=== PATIENT | female | born 1970 | race Caucasian/White ===

== ENCOUNTER → 2018-06-20 01:36 | Outpatient (CLI) | payer BC, SELFPAY ==
--- NOTE | 2018-06-20 13:00 | PFT_ITS ---
PULMONARY FUNCTION TEST DATE OF SERVICE June 20, 2018 REQUESTING PROVIDER Helen Lr M.D. INTERPRETATION OF STUDY The spirometry shows no evidence of obstructive airways disease, no bronchodilator response. Lung volumes show no evidence of restriction. Diffusion capacity normal. Airways resistance normal. IMPRESSION Overall normal pulmonary function study. Clinical correlation recommended. When this study was compared to previous one from 09/07/2006, the patient has a substantial decline in FVC of a total of 1170 cc. FEV1 has declined by 770 cc. Melody Kenyon M.D. JOSE/vianey T-06/21/2018
[2018-06-20] MEDS: Albuterol HFA 18 GM 200 PUFF INH IH (13:52)
[2018-06-20] MEDS: Inhaler, Assist Device 1 EACH MC (13:52)
== END ==
PROVIDERS: PCP Nurse Practitioner Family; Visit Provider Nurse Practitioner Family
DX: R06.02 Shortness of breath (principal)
CPT/HCPCS: 94060; 94150; 94726; 94729

== ENCOUNTER → 2018-07-04 15:14 | Outpatient (CLI) | payer BC, SELFPAY ==
[2018-07-04 16:42] LABS: Hemoglobin A1C 5.2 % (4.5-6.2)
[2018-07-04 17:47] LABS: Anion Gap 11.5 mmol/L (3-11); BUN 20 mg/dL (7-18); CO2 26.5 mmol/L (21.0-32.0); CREATININE 0.89 mg/dL (0.55-1.02); Calcium 8.5 mg/dL (8.5-10.1); Chloride 102 mmol/L (98-107); Cholesterol 219 mg/dL (50-200); Glucose 99 mg/dL (70-100); HDL Cholesterol 77 mg/dL (40-60); LDL CHOLESTEROL 125 mg/dL (<100); Potassium 4.1 mmol/L (3.5-5.1); Sodium 140 mmol/L (136-145); TSH 0.11 uIU/mL (0.358-3.74); Triglyceride 94 mg/dL (30-150)
[2018-07-04 18:19] LABS: FREE T4 0.88 ng/dL (0.76-1.46)
== END ==
PROVIDERS: PCP Nurse Practitioner Family; Visit Provider Nurse Practitioner Family
DX: E05.90 Thyrotoxicosis, unspecified without thyrotoxic crisis or storm (principal); E78.5 Hyperlipidemia, unspecified
CPT/HCPCS: 36415; 80048; 80061; 83721; 83036; 84439; 84443

== ENCOUNTER 2018-08-04 14:41 | Outpatient (CLI) | payer BC, SELFPAY | END 2018-08-04 15:01 | PROVIDERS: PCP Nurse Practitioner Family; Visit Provider Nurse Practitioner Family | DX: R30.0 Dysuria (principal) | CPT/HCPCS: 87077; 87086; 87186 ==

== ENCOUNTER 2018-11-10 12:40 | Outpatient (CLI) | payer BC, SELFPAY ==
--- NOTE | 2018-11-10 15:30 | DI.MAMMO_ITS ---
SYMPTOM/DIAGNOSIS: SCREENING, Z12.31 MAMMOGRAMS: Mammograms were interpreted according to the usual protocol including computer analysis with CAD system, tomosynthesis and C view imaging. There are no prior comparison exams. The breasts are composed of scattered fibroglandular densities, breast density, Category B. There is a rounded area of increased tissue density seen in the upper inner aspect of the right breast in the central tissue which may represent an island of breast tissue. Spot compression views and ultrasound are requested for further evaluation. No abnormality is seen in the left breast. There are no suspicious calcifications in either breast. CONCLUSION: Left breast, category 1, negative. Right breast, category 0. SA ASSESSMENT OF FINDINGS: Incomplete: Needs additional imaging evaluation. Category 0. Patient will receive a letter notifying them of these results. BI-RADS category B. There are scattered areas of fibroglandular density.
== END 2018-11-10 13:00 ==
PROVIDERS: PCP Nurse Practitioner Family; Visit Provider Nurse Practitioner Family
DX: R92.8 Other abnormal and inconclusive findings on diagnostic imaging of breast
CPT/HCPCS: 77063; 77067

== ENCOUNTER 2018-11-21 06:52 | Outpatient (CLI) | payer BC, SELFPAY ==
--- NOTE | 2018-11-21 14:31 | DI.COMBO_ITS ---
SYMPTOMS/DIAGNOSIS: F/U MAMMO, INCREASED SOFT TISSUE DENSITY ADDITIONAL VIEWS OF THE RIGHT BREAST AND RIGHT BREAST ULTRASOUND: Additional images are interpreted according to the usual protocol including tomosynthesis and 2D imaging. There is again seen an ovoid density in the upper inner quadrant of the right breast with somewhat ill defined borders particularly on the mediolateral oblique view. No associated microcalcifications are seen. Ultrasound was performed. At the 1:00 o'clock position of the right breast 4 cm from the nipple there is a soft tissue mass which appears to correspond to the mammographic abnormality. It has a hyperechoic rim with a hypoechoic center. No significant abnormal blood flow is appreciated. No posterior acoustic enhancement or shadowing is seen. IMPRESSION: Sonographically complex mass in the right breast corresponding to the mammographic abnormality. Biopsy should be considered for further evaluation. Alternatively a 3 month follow up mammogram and ultrasound may be considered for re-evaluation. Category 4. Breast density B. MQSA ASSESSMENT OF FINDINGS: Suspicious. Biopsy should be considered. Category 4. Patient will receive a letter notifying them of these results. BI-RADS category B. There are scattered areas of fibroglandular density.
== END 2018-11-21 07:12 ==
PROVIDERS: PCP Nurse Practitioner Family; Visit Provider Nurse Practitioner Family
DX: Z12.31 Encounter for screening mammogram for malignant neoplasm of breast (principal); R92.8 Other abnormal and inconclusive findings on diagnostic imaging of breast; N63.12 Unspecified lump in the right breast, upper inner quadrant
CPT/HCPCS: 76642; 77063; 77067

== ENCOUNTER 2019-03-20 01:04 | Outpatient (CLI) | payer BC, SELFPAY ==
--- NOTE | 2019-03-20 16:16 | DI.US_ITS ---
SYMPTOM/DIAGNOSIS: F/U THYROID NODULES, H/O BENIGN BIOPSY 2017,E04.1 THYROID ULTRASOUND: Routine examination was performed. The right lobe measures 6.3 by 2.7 by 3.1 cm. The left lobe measures 5.8 by 2.3 by 2.0 cm. The isthmus measures .3 cm. There are numerous bilateral thyroid nodules present, the largest on the right is a cystic nodule measuring 3.2 by 2 by 2.2 cm. seen inferiorly. The largest on the left is a solid avascular nodule inferiorly measuring 2 by 1.3 by 1.8 cm. IMPRESSION: Multi nodular thyroid gland.
== END 2019-03-20 01:24 ==
PROVIDERS: PCP Nurse Practitioner Family; Visit Provider Internal Medicine Endocrinology, Diabetes & Metabolism
DX: E04.2 Nontoxic multinodular goiter (principal)
CPT/HCPCS: 76536

== ENCOUNTER 2019-04-20 15:58 | Outpatient (CLI) | payer BC, SELFPAY ==
[2019-04-20 17:18] LABS: FREE T4 0.88 ng/dL (0.76-1.46); TSH 0.18 uIU/mL (0.358-3.74)
[2019-04-22 17:52] LABS: T3, Total 152 ng/dl (97-169)
[2019-04-25 15:38] LABS: Thyroid Stimulating Immunoglob <1.0 TSI index (<=1.3)
== END 2019-04-20 16:18 ==
PROVIDERS: PCP Nurse Practitioner Family; Visit Provider Internal Medicine Endocrinology, Diabetes & Metabolism
DX: E04.1 Nontoxic single thyroid nodule (principal)
CPT/HCPCS: 36415; 84439; 84443; 84445; 84480

== ENCOUNTER 2019-06-15 13:58 | Outpatient (CLI) | payer BC, SELFPAY ==
[2019-06-15 14:17] LABS: Bilirubin Small (Negative); Blood Negative (Negative); Clarity Sl Cloudy (Clear); Glucose Negative (Negative); Ketones Trace mg/dL (Negative); Leukocyte Esterase Negative (Negative); Nitrite Negative (Negative); Specific Gravity 1.015 (1.005-1.025); Urobilinogen 0.2 EU/dL (Up TO 0.2)
== END 2019-06-15 14:18 ==
PROVIDERS: PCP Nurse Practitioner Family; Visit Provider Nurse Practitioner Family
DX: R30.0 Dysuria (principal); N30.90 Cystitis, unspecified without hematuria
CPT/HCPCS: 81003; 87086

== ENCOUNTER 2019-07-24 00:44 | Outpatient (CLI) | payer BC, SELFPAY ==
[2019-07-24 17:57] LABS: TSH 0.14 uIU/mL (0.36-3.74)
[2019-07-25 18:36] LABS: T3, Total 160 ng/dl (97-169)
== END 2019-07-24 01:04 ==
PROVIDERS: PCP Nurse Practitioner Family; Visit Provider Internal Medicine Endocrinology, Diabetes & Metabolism
DX: E05.90 Thyrotoxicosis, unspecified without thyrotoxic crisis or storm (principal)
CPT/HCPCS: 36415; 84443; 84480

== ENCOUNTER 2019-10-26 00:19 | Outpatient (CLI) | payer BC, SELFPAY ==
[2019-10-26 17:11] LABS: Hemoglobin A1C 5.4 % (4.5-6.2)
[2019-10-26 17:38] LABS: ALT 28 U/L (14-59); AST 17 U/L (15-37); Albumin 3.8 g/dL (3.4-5.0); Alkaline Phosphatase 71 U/L (46-116); Anion Gap 8.2 mmol/L (3-11); BUN 14 mg/dL (7-18); Bilirubin, Total 0.4 mg/dL (0.2-1.0); CO2 29.8 mmol/L (21.0-32.0); CREATININE 0.74 mg/dL (0.55-1.02); Calculated LDL 134 mg/dL; Chloride 98 mmol/L (98-107); Cholesterol 238 mg/dL (<200); Glucose 133 mg/dL (74-106); HDL Cholesterol 84 mg/dL (40-60); Potassium 4.1 mmol/L (3.5-5.1); Sodium 136 mmol/L (136-145); TSH 0.19 uIU/mL (0.36-3.74); Total Protein 7.3 g/dL (6.4-8.2); Triglyceride 104 mg/dL (<150)
[2019-10-26 20:36] LABS: FREE T4 0.86 ng/dL (0.76-1.46)
[2019-10-28 19:27] LABS: T3, Total 156 ng/dL (97-169)
[2019-10-29 10:13] LABS: HIV-1/2 Ag & Ab Screen Negative (Negative)
== END 2019-10-26 00:39 ==
PROVIDERS: PCP Nurse Practitioner Family; Visit Provider Nurse Practitioner Family
DX: I10 Essential (primary) hypertension (principal); E78.5 Hyperlipidemia, unspecified; E05.90 Thyrotoxicosis, unspecified without thyrotoxic crisis or storm; Z11.4 Encounter for screening for human immunodeficiency virus [HIV]
CPT/HCPCS: 36415; 80053; 80061; 87389; 83036; 84439; 84443; 84480

== ENCOUNTER 2019-12-03 15:26 | Outpatient (CLI) | payer OTHER, SELFPAY ==
[2019-12-03 16:01] LABS: Abs Immature Grans 0.02 k/cumm (0.0-0.09); Absolute Basophil Count 0.02 k/cumm (0.0-0.2); Absolute Eosinophil Count 0.06 k/cumm (0.0-0.7); Absolute Lymphocyte Count 1.96 k/cumm (1.2-3.4); Absolute Monocyte Count 0.82 k/cumm (0.11-0.7); Absolute Neutrophil Count 5.79 k/cumm (1.2-6.7); Basophils % 0.2; Eosinophils % 0.7; HCT 39.6 % (36.0-46.0); HGB 13.6 g/dL (12.0-15.5); Immature Grans % 0.2 %; Lymphocytes % 22.6; Mean Corp. HGB Concentration 34.3 g/dL (32.0-36.0); Mean Corpuscular Hemoglobin 33.8 pg (27.0-33.0); Mean Corpuscular Volume 98.5 fL (80-95); Mean Platelet Volume 9.2 fL (8.0-11.0); Monocytes % 9.5; Neutrophils % 66.8; Platelet Count 301 x1000/uL (130-400); RBC 4.02 m/cumm (4.00-5.20); RBC Distribution Width 13.2 % (11.7-14.6); White Blood Cell Count 8.67 k/cumm (4.4-10.8)
[2019-12-03 16:27] LABS: ALT 22 U/L (14-59); AST 15 U/L (15-37); Albumin 3.3 g/dL (3.4-5.0); Alkaline Phosphatase 70 U/L (46-116); Anion Gap 8.3 mmol/L (3-11); BUN 13 mg/dL (7-18); Bilirubin, Total 0.4 mg/dL (0.2-1.0); CO2 29.7 mmol/L (21.0-32.0); CREATININE 0.66 mg/dL (0.55-1.02); Calcium 8.7 mg/dL (8.5-10.1); Chloride 99 mmol/L (98-107); Glucose 106 mg/dL (74-106); Potassium 4.3 mmol/L (3.5-5.1); Sodium 137 mmol/L (136-145); Total Protein 6.5 g/dL (6.4-8.2)
== END 2019-12-03 15:46 ==
PROVIDERS: PCP Nurse Practitioner Family; Visit Provider Nurse Practitioner Family
DX: R10.84 Generalized abdominal pain (principal)
CPT/HCPCS: 36415; 80053; 85025

== ENCOUNTER 2019-12-25 01:03 | Outpatient (CLI) | payer OTHER, SELFPAY ==
[2019-12-25] MEDS: Breeza Beverage 473 ML BTL PO ×2 (08:03→08:05)
[2019-12-25] MEDS: Omnipaque 350 MG/ML 50 ML BTL PO (08:04)
--- NOTE | 2019-12-25 08:33 | DI.CT_ITS ---
EXAM: CT ABDOMEN AND PELVIS W CLINICAL HISTORY: UPPER AND LOWER ABD PAIN, R10.84 TECHNIQUE: Post IV and oral contrast COMPARISON: No exams were available for comparison FINDINGS: The lung bases are clear. The heart size is normal. The liver is enlarged measuring 20 centimeters and shows mild diffuse fatty infiltration. No focal liver lesions or biliary dilatation is seen. Th e gallbladder, spleen, pancreas, kidneys and adrenals are unremarkable. The urinary bladder is nearl y empty. The uterus appears mildly enlarged. There are 2 adjacent cysts on the left ovary. There i s no bowel dilatation or inflammatory change. The appendix appears normal. There is tiny fatty cont aining umbilical hernia. The aorta is normal in diameter. There are mild degenerative changes in th e spine. IMPRESSION: Left ovarian cysts. No acute abnormality.
[2019-12-25] MEDS: Omnipaque 350 MG/ML 100 ML BTL IJ (08:41)
== END 2019-12-25 01:23 ==
PROVIDERS: PCP Nurse Practitioner Family; Visit Provider Nurse Practitioner Family
DX: R10.12 Left upper quadrant pain (principal); R10.32 Left lower quadrant pain; N83.292 Other ovarian cyst, left side; R16.0 Hepatomegaly, not elsewhere classified; K76.0 Fatty (change of) liver, not elsewhere classified; N85.2 Hypertrophy of uterus
CPT/HCPCS: 74177; J3490; Q9967

== ENCOUNTER 2020-04-08 09:22 | Outpatient (CLI) | payer OTHER, SELFPAY ==
[2020-04-09 21:03] LABS: COVID-19 RT-PCR UVMMC Result Negative (Negative)
== END 2020-04-08 09:42 ==
PROVIDERS: PCP Nurse Practitioner Family; Visit Provider Surgery
DX: Z11.59 Encounter for screening for other viral diseases (principal)
CPT/HCPCS: U0003

== ENCOUNTER 2020-04-11 07:02 | Day surgery (SDC) | payer OTHER, SELFPAY ==
--- NOTE | 2020-04-11 05:42 | HPE_ITS ---
Date of service: 04/11/20 Time of Service: 08:03 Assessment and Plan Assessment and plan (1) Change in bowel habits: Status: Acute Assessment and plan: I advised EGD and colonoscopy The procedure was described including the risks of perforation with need for surgery, bleeding, cardiorespiratory issues. The patient agrees to proceed. (2) LUQ abdominal pain: Status: Acute History of Present Illness Narrative: Has not felt well since last March. Complains of burning in her throat and tugging abdominal pain on left side that now radiates to right side. Also has some abdominal cramping and rectal pressure. Worse with drinking ETOH. Appetite is slightly decreased and feels full easily. Symptoms were off and on and are now more constant. Having 2BM/day, which is somewhat more frequent. No bloody or black stools. No FH colon cancer. CT normal. EGD 11/2017 showed mild antral gastritis. Review of Systems All systems reviewed & are unremarkable except as noted in HPI and below PFSH Social History Smoking/Tobacco Use Status: Current every day Tobacco Type: cigarettes Smoking packs per day: 1 Smoking cigarettes per day: 20.0 Years smoked: 35 Smoking pack- years: 35.00 Tobacco: How many years used: 35 Quit status: considering quitting Smoking risk assessment performed?: Yes Alcohol Intake: current Alcohol Intake frequency: 3 or more drinks per day Alcohol type: beer and wine Drug use: Never Substance use type: does not use Caregiver/Support person: No Household members: spouse and children Housing: house Do you need help understanding health information?: Rarely current occupation: [employer] Pets and animals: Yes Pets and animals: cat(s) Sexually active: Yes Do you think of yourself as: straight/heterosexual Current gender identity: female What is your relationship status?: How often do you talk on the phone with friends or family?: twice per week How often do you get together with friends or relatives?: once per week How often do you attend sabianism or orthodox services?: 1-3 times per year Do you belong to any clubs or organized social groups?: no Panel score (0-1 are the most socially isolated patients): 2 What type of physical activity do you participate in: walking Duration: 30-45 minutes/day Frequency: 3-4 times per week Freya/Adventism: Hinduism Special freya needs: No Seatbelt use: always 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 Do you feel safe at home: Yes Do you feel safe in your relationship?: Yes History History 3 Para 3 Hx # Term Pregnancies Multiple births Hx # Pregnancies Ectopic pregnancies AB induced Hx Number of Living Children 3 AB spontaneous Meds Home Medications and Allergies Home Medications Medication Instructions Recorded Confirmed Type multivitamin 1 ea PO DAILY tab 05/08/13 04/11/20 History latanoprost 1 drp OPHTHALMIC DAILY drp 08/11/16 04/11/20 History calcium phosphate-vitamin D3 1 ea PO DAILY tab.chew 09/01/17 04/11/20 History hydrochlorothiazide 25 mg tablet 25 mg PO DAILY #90 tab-cap 07/26/19 04/11/20 Rx nicotine 21 mg/24 hr daily 1 patch TD DAILY #42 each 10/18/19 04/11/20 Rx transdermal patch nicotine 7 mg/24 hr daily 1 patch TD DAILY 14 Days #14 each 10/18/19 04/11/20 Rx transdermal patch ranitidine HCl 150 mg tablet 150 mg PO QHS PRN #90 tab 12/26/19 04/11/20 Rx potassium chloride 10 mEq 10 meq PO DAILY #90 tab-cap 01/29/20 04/11/20 Rx tablet,extended release(part/cryst) albuterol sulfate 90 mcg/actuation 1 puff INHALATION Q6H PRN #18 gm 02/07/20 04/11/20 Rx aerosol inhaler sucralfate 1 gram tablet 1 gm PO Q6H PRN #90 tab 02/07/20 04/11/20 Rx omeprazole 40 mg capsule,delayed 40 mg PO BID #180 cap 02/14/20 04/11/20 Rx release bisacodyl 5 mg tablet,delayed 5 mg PO ONCE #4 tab 04/08/20 Rx release polyethylene glycol 3350 17 238 g PO ONCE #238 gm 04/08/20 04/11/20 Rx gram/dose oral powder Allergies Allergy/AdvReac Type Severity Reaction Status Date / Time bupropion AdvReac Unknown Psychosis Verified 04/11/20 07:28 Exam Const General: healthy appearing and not in acute distress Nutritional Appearance: well nourished Orientation: oriented x3 HENMT Head: normal to inspection Eyes Sclera: sclerae normal Pupils: PERRL Neck Neck: no lymphadenopathy Resp Effort & Inspection: normal respiratory effort Auscultation: clear to auscultation bilaterally and no wheezes Cardio Rate: regular rate Rhythm: regular rhythm GI Inspection: non-distended Palpation: soft, no hepatosplenomegaly, no hernias and nontender Skin General skin exam: no rashes or lesions noted Neuro General: patient alert Cognition: normal cognition Extrem General: normal to inspection Psych Affect: normal affect Attitude: cooperative COVID-19 Screening In the past 14 days, have you traveled outside of [place] or [place]?: NO
[2020-04-11 07:33] VITALS: BP 135/88; PULSE 89; RESP 16; TEMP 36.2; O2SAT 97
[2020-04-11] MEDS: Lactated Ringers 1,000 ML 80 ML IV (08:03)
--- NOTE | 2020-04-11 08:04 | W.PM.DSUDISC ---
Discharge Plan Disposition Patient Disposition: HOME Condition: Good Discharge Details Reason For Visit: GERD/CHANGE IN BOWEL HABITS/LUQ PAIN Attending Provider: Bailey Lincoln Primary Care Provider: Helen Lr Home Meds and New Rx's Prescriptions: Continued multivitamin 1 EACH tablet 1 ea PO DAILY RF: 0 latanoprost 2.5 ML drops 1 drp Ophthalmic DAILY RF: 0 calcium phosphate-vitamin D3 1 EACH tablet,chewable 1 ea PO DAILY RF: 0 hydrochlorothiazide 25 mg tablet 25 mg PO DAILY Qty: 90 RF: 4 nicotine 21 mg/24 hr patch 24 hour 1 patch TD DAILY Qty: 42 RF: 0 nicotine 7 mg/24 hr patch 24 hour 1 patch TD DAILY 14 Days Qty: 14 RF: 6 ranitidine HCl 150 mg tablet 150 mg PO QHS PRN (Reason: heartburn) Qty: 90 RF: 4 potassium chloride 10 mEq tablet,ER particles/crystals 10 meq PO DAILY Qty: 90 RF: 4 sucralfate 1 gram tablet 1 gm PO Q6H PRN (Reason: heartburn) Qty: 90 RF: 3 albuterol sulfate 90 mcg/actuation HFA aerosol inhaler 1 puff Inhalation Q6H PRN (Reason: shortness of breath or wheezing) Qty: 18 RF: 4 omeprazole 40 mg capsule,delayed release(DR/EC) 40 mg PO BID Qty: 180 RF: 4 Discontinued polyethylene glycol 3350 17 gram/dose powder 238 g PO ONCE Qty: 238 RF: 0 bisacodyl [Dulcolax (bisacodyl)] 5 mg tablet,delayed release (DR/EC) 5 mg PO ONCE Qty: 4 RF: 0 Discharge Instructions Additional Instructions: Findings: Your EGD showed minimal inflammation in the stomach (gastritis). The esophagus appeared normal. Routine biopsies were done, my office will contact you with results. Three small polyps were removed from the colon. Follow up: Plan for a colonoscopy in 5 years Please call if you develop: fevers >101.5 Nausea or Vomiting Abdominal pain that is not transient DAY SURGERY UNIT POST EGD/COLONOSCOPY INSTRUCTIONS 1. Because there will be medication in your system for the next 24 hours, you may feel a little sleepy. Your coordination will be affected. Therefore: a. Do not drive or operate dangerous equipment for 24 hours. b. Do not drink alcohol beverages for 24 hours (not even beer). c. Plan to go home and rest for the day. 2. Generally there are no restrictions on your activity after a day or so has gone by, but you may feel a bit fatigued for a few days. 3 After you arrive home you may have a light meal and return to a normal diet as you can tolerate it without feeling sick to your stomach. 4. After surgery, you may feel pain or discomfort. This should be only transient, but if it persists please contact your doctor. 5. If there are any questions regarding the findings of your procedure, please feel free to contact your doctor. 6. If you are unable to contact your doctor with a problem, contact the hospital at [phone]. 7. Continue all your regular medications unless directed otherwise. I understand the above instructions and have no questions. Signature of Patient or Responsible Adult Escort Date/Time Name of Responsible Adult Escort Signature of Nurse Date/Time Activity:: Activity as Tolerated Diet:: As Tolerated Discharge Orders Discharge Orders: Discharge Order (Routine); Ordered 04/11/20 Ordered By: Bailey Lincoln DS: Diagnosis Discharge Diagnosis (1) Change in bowel habits: Status: Acute (2) LUQ abdominal pain: Status: Acute
--- NOTE | 2020-04-11 09:00 | BOWEL_PTH ---
PATIENT: Geni Cage LOC: [facility] U#:[id number] AGE/SX: 49/F ROOM: RE04/11/[address]: Bailey Lincoln MD : 1970 BED: DIS: 04/11/2020 SPEC #: [id number] RECD: 04/11/20 12:11 STATUS: TAMIA DUNCAN #: [id number] SHARMIN: 04/11/20 09:[address]: Bailey Lincoln DEPT: Surgical Specimen RECD BY: Dali Arias ENTERED: 04/11/20 12:12 SP TYPE: Bowel OTHR DR: Helen Lr, LORNE Tissues: 1 - BIOPSY BOWEL 2 - STOMACH BIOPSY 3 - BIOPSY BOWEL 4 - BIOPSY BOWEL Procedures: GROSS AND MICRO LEVEL 4 Comments: [id number]
--- NOTE | 2020-04-11 09:17 | COLE_ITS ---
Date of service: 04/11/20 Time of Service: 09:17 Colonoscopy Report Date of procedure: 04/11/20 Pre-op diagnosis general: LUQ pain, change in bowel habits Post-op diagnosis procedure note: other (Mild gastritis, colon polyps) Procedure: EGD with biopsies Colonoscopy with cold forceps polypectomy Surgeon: Bailey Lincoln Anesthesia proc note operative: MAC Disposition: same day Indications: This patient notes LUQ discomfort. She also has some pelvic pressure and increased stool frequency. Procedure Description: The patient was placed in the left lateral position and propofol titrated to sedation. The endoscope was advanced into the esophagus un julee direct visualization. The scope was passed through the stomach and into the duodenum. There was no duodenitis or ulceration noted. Biopsies were taken from the second portion of the duodenum to evaluate for celiac disease. The gastric antrum showed minimal inflammation. The remainder of the stomach was normal including on retroflexed view of the fundus and lesser curvature. Routine biopsies were taken from the gastric antrum. The GE junction was inspected and showed no significant stricture, inflammation, masses or Barretts. The scope was slowly withdrawn with no other esophageal les ions found. Digital rectal examination revealed no abnormalities. The scope was advanced to the cecum without difficulty. The ileocecal valve and appendiceal orifice were clearly identified. The prep was good. The scope was slowly withdrawn over the course of greater than 6 minutes with no abnormalities seen in the ascending, transverse colon. In the sigmoid colon two diminiutive polyps were removed with the cold forceps and sent in the same specimen container. A hyperplastic appearing polyp was removed with the cold forceps from the rectum. Retroflexed view was normal. The patient tolerated the procedure well and was stable to recovery. Plan for routine colonoscopy in 5 years or sooner if symptoms indicate.
[2020-04-11 09:39] VITALS: BP 133/86; PULSE 70; RESP 18; TEMP 36.5; O2SAT 98
== END 2020-04-11 10:10 | disposition home or self-care (01) ==
PROVIDERS: PCP Nurse Practitioner Family; Visit Provider Surgery
PROC: (CPT 45380; principal; 2020-04-11 08:15)
DX: R19.4 Change in bowel habit (principal); R10.12 Left upper quadrant pain; D12.4 Benign neoplasm of descending colon; K62.1 Rectal polyp
CPT/HCPCS: 45380; 43239; 81025; 88305; NC; J2001

== ENCOUNTER 2020-04-23 01:32 | Outpatient (CLI) | payer OTHER, SELFPAY ==
[2020-04-28 13:22] LABS: IgA 291 mg/dL (85-499); Tissue Transglutaminase IgA <1.2 U/mL (<4.0)
== END 2020-04-23 01:52 ==
PROVIDERS: PCP Nurse Practitioner Family; Visit Provider Surgery
DX: R10.12 Left upper quadrant pain (principal); R19.4 Change in bowel habit
CPT/HCPCS: 36415; 82784; 83516

== ENCOUNTER 2020-09-26 14:13 | Outpatient (CLI) | payer OTHER, SELFPAY ==
[2020-10-01 02:34] LABS: Patient Race White; SARS-CoV-2 RNA Undetected (Undetected); SARS-CoV-2 Specimen Source Nasal
== END 2020-09-26 14:33 ==
PROVIDERS: PCP Nurse Practitioner Family; Visit Provider Nurse Practitioner Family
DX: Z11.59 Encounter for screening for other viral diseases (principal)
CPT/HCPCS: U0003

== ENCOUNTER 2020-09-29 17:25 | Emergency (ER) | payer OTHER, SELFPAY ==
[2020-09-29] VITALS (7 sets, daily range): BP systolic 135–161; BP diastolic 88–101; PULSE 75–100; RESP 14–16; TEMP 36.6–37.2; O2SAT 98–100
--- NOTE | 2020-09-29 17:30 | RT.EKG_ITS ---
APPROVED REPORT Exam: Resting ECG Patient Location: E HR:101 bpm ECG Measurements Heart Rate 101 AXIS [place] 124 P 68 QRSd 83 QRS 39 QT 347 T 59 QTc 449 Conclusion Sinus tachycardia...rate> 99 Probable left atrial enlargement...P >50mS, <-0.10mV V1 Physician: Rate 101, intervals normal, sinus tachycardia, no significant ST elevations or depression, and no evidence of STEMI, or dysrhythmia.
--- NOTE | 2020-09-29 17:49 | DI.CT_ITS ---
EXAM: CT CHEST PE ABD PELVIS W CLINICAL HISTORY: elephant on chest, sob. TECHNIQUE: Imaging Protocol: Axial CT angiography was performed with multi-slice acquisition and mu lti-planar and/or 3D reconstructions. CONTRAST MATERIAL: Intravenous: Omnipaque 350 Contrast volume:100 mL Oral: No COMPARISON: MG [facility] mammo screen call back [facility] from 11/21/[address] ABDOMEN PELVIS W from 12/25/2019 FINDINGS: CHEST: Pulmonary Arteries: No evidence of filling defect to suggest pulmonary emboli. Tracheobronchial tree: Patent where visualized. Mediastinum and Amparo: No dominant adenopathy or fluid collection. There is a 1.8 cm hypodense nodule in the superior mediastinum to the right of the trachea. It lies just posterior and inferior to the right lobe of the thyroid gland. There is a 0.7 cm hypodense nodule in the left lobe of the thyroid gland. Pulmonary parenchyma: No focal consolidation. There is a 0.7 cm pulmonary nodule in the posterior as pect of the left lower lobe. There is a 3 mm noncalcified pulmonary nodule in the left lower lobe. There is a 3 mm pulmonary nodule in the right upper lobe. No architectural distortion. Pleura: No effusion or pneumothorax. Heart: The heart is not dilated. No coronary artery calcifications are seen. No pericardial effusion. Aorta: Thoracic aorta non-dilated. No dissection. Bones: Degenerative changes. Soft tissues: Unremarkable. ABDOMEN: Liver: Normal density. No measurable mass. Portal, Superior Mesenteric, and Splenic Veins: Unremarkable. Gallbladder and Biliary Tract: No radiodense calculus or dilation. Pancreas: Normal density, no abnormal calcifications or inflammatory process. Spleen: Normal. Adrenals: No masses seen. Kidneys: Normal size, contour and axis. No radiodense stones or obstructive uropathy. No masses seen. Abdominal Aorta: Abdominal portion non-dilated. Mild atherosclerosis. Bowel: No obstruction or bowel wall thickening. Appendix is unremarkable. Peritoneal Cavity: No ascites, collection or mesenteric inflammatory response. Lymph Nodes: Within normal limits. Bones: Mild degenerative changes seen in the lumbar spine. Soft Tissues: Small fat containing umbilical hernia. PELVIS: Bladder: Symmetric distention, no gross wall thickening. Reproductive Organs: Bilateral ovarian cysts. The right cyst measures 3.4 cm. The left cyst measure s 2.7 cm. Lymph Nodes: Within normal limits. Bones: See above. IMPRESSION: 1. No evidence of a pulmonary embolism, thoracic aortic dissection or aneurysm. 2. Bilateral ovarian cysts. 3. No acute abdominal or pelvic process. 4. Probable thyroid nodules. A nonemergent thyroid ultrasound is recommended for further evaluation. 5. Pulmonary nodules. The largest measures 0.7 cm and is located in the left lower lobe. For both lo w risk and high-risk patients, consider CT scan of the chest at 3 months, PET-CT or biopsy. RADIATION DOSE DELIVERED: 1,883.22mGy.cm Total DLP 1,883.22mGy.cm Total DLP 1,883.22mGy.cm Total DLP DATA REPOSITORY: All CT scans at this facility are submitted to the National Radiology Data Registry (NRDR) Dose Index Registry (DIR) with the [employer] (A[employer]). RADIATION OPTIMIZATION: All CT scans at this facility use at least one of these dose optimization te chniques: automated exposure control; mA and/or kV adjustment per patient size (includes targeted exa ms where dose is matched to clinical indication); or iterative reconstruction.
--- NOTE | 2020-09-29 17:56 | W.ED.GENAD ---
Discharge Plan Disposition Patient Disposition: HOME Condition: Good Discharge Details Clinical Impression: Pulmonary nodule, Thyroid nodule, Chronic chest pain, Chronic shortness of breath Primary Care Provider: Helen Lr ED Provider: Ezequiel Dasilva Home Meds and New Rx's Prescriptions: Continued omeprazole 40 mg capsule,delayed release(DR/EC) 40 mg PO DAILY RF: 0 doxycycline hyclate 50 mg capsule 50 mg PO DAILY RF: 0 multivitamin 1 EACH tablet 1 ea PO DAILY RF: 0 latanoprost 2.5 ML drops 1 drp Ophthalmic DAILY RF: 0 calcium phosphate-vitamin D3 1 EACH tablet,chewable 1 ea PO DAILY RF: 0 hydrochlorothiazide 25 mg tablet 25 mg PO DAILY Qty: 90 RF: 4 nicotine 21 mg/24 hr patch 24 hour 1 patch TD DAILY Qty: 42 RF: 0 nicotine 7 mg/24 hr patch 24 hour 1 patch TD DAILY 14 Days Qty: 14 RF: 6 ranitidine HCl 150 mg tablet 150 mg PO QHS PRN (Reason: heartburn) Qty: 90 RF: 4 potassium chloride 10 mEq tablet,ER particles/crystals 10 meq PO DAILY Qty: 90 RF: 4 sucralfate 1 gram tablet 1 gm PO Q6H PRN (Reason: heartburn) Qty: 90 RF: 3 albuterol sulfate 90 mcg/actuation HFA aerosol inhaler 1 puff Inhalation Q6H PRN (Reason: shortness of breath or wheezing) Qty: 18 RF: 4 Chantix Starting Month Box 0.5 mg (11)- 1 mg (42) tablets,dose pack See Rx Instructions PO DIRECTED Qty: 53 RF: 0 Discharge Instructions Additional Instructions: At this time your work-up shows no signs of heart attack, or life-threatening etiology. However there are 2 things that are of concern. You do have evidence of a small nodule in your lung and a small nodule on your thyroid. These do not represent cancer at this stage however they need to be followed very closely. I will copy your primary care provider onto the note so they are aware. We will require repeat imaging here then in the next 3 months and further assessment of that, as well as an ultrasound of your thyroid nodule. Additionally you have gone through a tremendous amount of pain lately, and I do feel that counseling may be very helpful and beneficial to help with that you have been through. We will have them contact you. If you notice any worsening of your symptoms, or any new symptoms such as vomiting, diarrhea, fever, chills, shortness of breath, chest pain, numbness, weakness, or fainting , please return immediately to the emergency department for reevaluation. Please follow up with your primary care provider as soon as possible for reassessment and reevaluation. As always, it was a pleasure participating in your medical care today. Referrals: Helen Lr NP [Primary Care Provider] - Medical Decision Making 49-year-old female with a past medical history of COPD, still smokes greater than a pack per day, hypertension, who presented with today for the pulmonary clinic for evaluation of chest pain. Per patient she has had chest pain, occasional shortness of breath, and chest heaviness which she describes as an elephant sitting on her chest for the past 4 months. She states that it has been present since she lost her daughter in May. She has increased her smoking since then. She denies any acute changes over the last 3 months at all. She denies any pleuritic chest pain. She states that her pain and shortness of breath is not altered by activity or position. She does admit to an occasional cough, but denies hemoptysis. She denies fever or chills. She has had outpatient testing for coronavirus but denies any known exposures. We are still pending those results. She has an albuterol inhaler at home but otherwise does not use any breathing treatments. She denies any change of her symptoms with this. No other complaints at this time. No other modifying factors. Physical exam is notably unremarkable. I had an honest discussion with the patient regarding my thoughts with her current symptoms. As they are notably long occurring I feel that etiologies are unlikely life-threatening. However she certainly would benefit from further evaluation. I asked her what her main concern was that she verbalizes to me that she is truly concerned that she has cancer. This is her biggest worry. She was extremely tearful, and it seems that there is also a significant amount of grief and sadness that she still harbors from the of her daughter a few months ago. We will evaluate for concerning potential etiologies for the patient, additionally I do feel that the patient is dealing with a tremendous amount of stress from her life circumstances. I feel that she would certainly benefit from counseling also on an outpatient basis. 8pm Laboratory work-up has returned, no significant abnormalities. Troponin and proBNP are normal, no suggestion of heart strain. Lipase normal. CT scan results have returned, there is evidence of a left lobe thyroid nodule she is heterogenous, patient states that she is well aware of this and is getting it evaluated. There is also evidence of a low regularly shaped nodule in the superior segment of the left lower mandible with radiologic recommendations for PET scan and biopsy follow-up. No other abnormalities. No evidence of PE. No evidence of dissection. With normal troponin and EKG and her symptoms lasting greater than 4 months we will see no indication for repeat troponin at this time. With normal vital signs, no hypoxemia or tachypnea, and otherwise unremarkable work-up I do feel that at this time the patient is safe for discharge. I spent greater than 30 minutes with the patient having a long discussion about these findings, and importance of close follow-up and further assessment with. We will forward the note to the patient's primary care provider for further management and diagnostic evaluation of the lung nodules. Patient also gave us permission to have [facility] reach out to her for potential discussion and counseling. I also did recommend further outpatient work-up for potential pulmonary function testing, and eventual stress testing and discussion of this with her PCP. No emergent indication for stress testing at this time though, as her symptoms are clinically inconsistent with ACS or a significant cardiac etiology. I have extensively reviewed the treatment plan and discharge instructions with the patient. I have addressed all patient concerns at this time. The patient was made aware of what symptoms to monitor for that would warrant a return to the emergency department. Discussed the plan with the patient, they demonstrate verbal understanding and agreement with our assessment and plan at this time. EKG 17: 41 Rate 101, intervals normal, sinus tachycardia, no significant ST elevations or depression, and no evidence of STEMI, or dysrhythmia. FINDINGS: Pulmonary arteries: Normal. No pulmonary emboli. Aorta: Unremarkable. No aortic aneurysm. No aortic dissection. Thyroid: Left lobe of the thyroid is heterogeneous. possible 15 mm nodule in the left lobe of the thyroid. Recommend thyroid ultrasound. Lungs: Irregularly shaped nodule in the superior segment of the left lower lobe 8.7 mm. Series 5, image 24. Pleural space: Unremarkable. No pneumothorax. No pleural effusion. Heart: Unremarkable. No cardiomegaly. No pericardial effusion. Lymph nodes: Unremarkable. No enlarged lymph nodes. Bones/joints: Unremarkable. No acute fracture. Soft tissues: Unremarkable. IMPRESSION: 1. Left lobe of the thyroid is heterogeneous. possible 15 mm nodule in the left lobe of the thyroid. Recommend thyroid ultrasound. 2. Irregularly shaped nodule in the superior segment of the left lower lobe 8.7 mm. Series 5, image 24. For both low risk and high risk patients, consider CT Chest at 3 months, PET/CT, or biopsy. (Reference: Johanna) References: Johanna Abdalla et al. Guidelines for Management of Incidental Pulmonary Nodules Detected on CT Images: From the Fleischner Society 2017. Radiology. 2017;284(1):228-243 HPI General Date/Time Provider Initiated Documentation: 09/29/20 17:30. HPI Narrative: 49-year-old female with a past medical history of COPD, still smokes greater than a pack per day, hypertension, who presented with today for the pulmonary clinic for evaluation of chest pain. Per patient she has had chest pain, occasional shortness of breath, and chest heaviness which she describes as an elephant sitting on her chest for the past 4 months. She states that it has been present since she lost her daughter in May. She has increased her smoking since then. She denies any acute changes over the last 3 months at all. She denies any pleuritic chest pain. She states that her pain and shortness of breath is not altered by activity or position. She does admit to an occasional cough, but denies hemoptysis. She denies fever or chills. She has had outpatient testing for coronavirus but denies any known exposures. We are still pending those results. She has an albuterol inhaler at home but otherwise does not use any breathing treatments. She denies any change of her symptoms with this. No other complaints at this time. No other modifying factors. Related Data Home Medications Medication Instructions Recorded Confirmed multivitamin 1 ea PO DAILY tab 05/08/13 09/29/20 latanoprost 1 drp OPHTHALMIC DAILY drp 08/11/16 09/29/20 calcium phosphate-vitamin D3 1 ea PO DAILY tab.chew 09/01/17 09/29/20 hydrochlorothiazide 25 mg tablet 25 mg PO DAILY #90 tab-cap 07/26/19 09/29/20 nicotine 21 mg/24 hr daily 1 patch TD DAILY #42 each 10/18/19 09/29/20 transdermal patch nicotine 7 mg/24 hr daily 1 patch TD DAILY 14 Days #14 each 10/18/19 09/29/20 transdermal patch ranitidine HCl 150 mg tablet 150 mg PO QHS PRN #90 tab 12/26/19 09/29/20 potassium chloride 10 mEq 10 meq PO DAILY #90 tab-cap 01/29/20 09/29/20 tablet,extended release(part/cryst) sucralfate 1 gram tablet 1 gm PO Q6H PRN #90 tab 02/07/20 09/29/20 omeprazole 40 mg capsule,delayed 40 mg PO DAILY cap 05/01/20 09/29/20 release doxycycline hyclate 50 mg capsule 50 mg PO DAILY 05/23/20 09/29/20 albuterol sulfate 90 mcg/actuation 1 puff INHALATION Q6H PRN #18 gm 08/01/20 09/29/20 aerosol inhaler varenicline 0.5 mg (11)-1 mg (42) See Rx Instructions PO DIRECTED 08/08/20 09/29/20 tablets in a dose pack #53 dose pk Previous Rx's Medication Instructions Recorded hydrochlorothiazide 25 mg tablet 25 mg PO DAILY #90 tab-cap 07/26/19 nicotine 21 mg/24 hr daily 1 patch TD DAILY #42 each 10/18/19 transdermal patch nicotine 7 mg/24 hr daily 1 patch TD DAILY 14 Days #14 each 10/18/19 transdermal patch ranitidine HCl 150 mg tablet 150 mg PO QHS PRN #90 tab 12/26/19 potassium chloride 10 mEq 10 meq PO DAILY #90 tab-cap 01/29/20 tablet,extended release(part/cryst) sucralfate 1 gram tablet 1 gm PO Q6H PRN #90 tab 02/07/20 albuterol sulfate 90 mcg/actuation 1 puff INHALATION Q6H PRN #18 gm 08/01/20 aerosol inhaler varenicline 0.5 mg (11)-1 mg (42) See Rx Instructions PO DIRECTED 08/08/20 tablets in a dose pack #53 dose pk Allergies Allergy/AdvReac Type Severity Reaction Status Date / Time bupropion AdvReac Unknown Psychosis Verified 09/29/20 16:58 General Stated Complaint: Chest Pain RUBEN: 2 Review of Systems All systems reviewed & are unremarkable except as noted in HPI and below PFSH Medical History (Updated 09/29/20 @ 21:24 by Ezequiel Dasilva DO) Allergic rhinitis Atypical lobular hyperplasia (ALH) of right breast Depressive disorder Dysfunctional uterine bleeding Essential hypertension Excessive drinking of alcohol Generalized anxiety disorder GERD with esophagitis Hyperlipidemia Subclinical hyperthyroidism (~10/2017) Surgical History History of esophagogastroduodenoscopy (EGD) (04/11/20) 11/22/17, 04/11/20 S/P colonoscopy (04/11/20) Family History Mother Hyperlipidemia Type 2 diabetes mellitus Heart disease Father , at 66 of [place] Depression Stroke Myocardial infarction Type 2 diabetes mellitus Hypertension Heart disease Sister Type 2 diabetes mellitus Hypertension Hyperlipidemia Brother Hypertension Depression Brother Depression Brother Depression Brother Hypertension Son Depression Daughter Depression Daughter , at 27 suspected overdose Depression Substance abuse Maternal Grandfather Hypertension Emphysema lung Maternal Grandmother Vaginal cancer Type 2 diabetes mellitus Paternal Grandfather Heart disease Paternal Grandmother Type 2 diabetes mellitus Heart disease Social History Smoking/Tobacco Use Status: Current every day Tobacco Type: cigarettes Smoking packs per day: 1 Smoking cigarettes per day: 20.0 Years smoked: 35 Smoking pack-years: 35.00 Tobacco: How many years used: 35 Quit status: considering quitting Smoking risk assessment performed?: Yes Alcohol Intake: current Alcohol Intake frequency: 3 or more drinks per day Alcohol type: beer and wine Drug use: Never Substance use type: does not use Caregiver/Support person: No Household members: spouse and children Housing: house Do you need help understanding health information?: Rarely 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 Pets and animals: Yes Pets and animals: cat(s) Sexually active: Yes Do you think of yourself as: straight/heterosexual Current gender identity: female What is your relationship status?: How often do you talk on the phone with friends or family?: twice per week How often do you get together with friends or relatives?: once per week How often do you attend restorationism or mormonism services?: 1-3 times per year Do you belong to any clubs or organized social groups?: no Panel score (0-1 are the most socially isolated patients): 2 What type of physical activity do you participate in: walking Duration: 30-45 minutes/day Frequency: 3-4 times per week Freya/Latter Day: Sikh Special freya needs: No Seatbelt use: always Drive intox or ride w/intox milk delivery driver: No Do you feel safe at home: Yes Do you feel safe in your relationship?: Yes History History 3 Para 3 Hx # Term Pregnancies Multiple births Hx # Pregnancies Ectopic pregnancies AB induced Hx Number of Living Children 3 AB spontaneous Exam Narrative Exam Narrative: 1.Const: Well-nourished, Well-developed, appearing stated age 2.Eyes: PERRL, no conjunctival injection, and symmetrical lids. 3.ENT: Atraumatic external nose and ears. Moist MM. Neck: Symmetric, trachea midline, No thyromegaly. 4.CVS: +S1/S2, No murmurs or gallops. Peripheral pulses 2+ and equal in all extremities. Brisk capillary refill in all extremities. 5.RESP: Unlabored respiratory effort. Clear to auscultation bilaterally. No wheezes rales or rhonchi 6.GI: Soft, Nontender/Nondistended, No hepatosplenomegaly. No guarding or rebound. 7.MSK: Normocephalic/Atraumatic, Extremities w/o deformity or ttp No cyanosis or clubbing, Normal movement of all extremities no calf tenderness or edema. 8.Skin: Warm, Dry. No rashes or lesions. 9.Neuro: medical clinic manager II-XII grossly intact. Sensation grossly intact, no focal neurologic deficits. 10.Psych: (AAO) x3. Appropriate mood and affect Course Vital Signs Vital signs: Vital Signs Temperature 36.6 C 09/29/20 17:37 Pulse 94 H 09/29/20 17:37 Blood Pressure 161/88 H 09/29/20 17:37 Pulse Oximetry 100 09/29/20 17:37 Temperature 36.6 C 09/29/20 17:37 Temperature Source Temporal Artery Scan 09/29/20 17:37 Pulse 94 H 09/29/20 17:37 Blood Pressure 161/88 H 09/29/20 17:37 Blood Pressure Position Sitting 09/29/20 17:37 Pulse Oximetry 100 09/29/20 17:37 Oxygen Delivery Method Room Air 09/29/20 17:37 Oxygen Flow Rate 0 09/29/20 17:37 Pain Level 6 09/29/20 17:37
[2020-09-29 17:59] LABS: Abs Immature Grans 0.02 10^3/uL (0.0-0.06); Absolute Basophil Count 0.02 10^3/uL (0.0-0.2); Absolute Eosinophil Count 0.04 10^3/uL (0.0-0.7); Absolute Lymphocyte Count 2.02 10^3/uL (1.2-3.4); Absolute Monocyte Count 0.71 10^3/uL (0.1-0.8); Absolute Neutrophil Count 5.24 10^3/uL (1.2-6.7); Basophils % 0.2; Eosinophils % 0.5; HCT 42.9 % (36.0-46.0); HGB 14.9 g/dL (11.2-15.7); Immature Grans % 0.2; Lymphocytes % 25.1; MCH 35.3 pg (27.0-33.0); MCHC 34.7 % (32.0-36.0); MCV 101.7 fL (80-95); Monocytes % 8.8; Neutrophils % 65.2; Nucleated RBC 0 %; Platelet Count 294 10^3/uL (130-400); RBC 4.22 10^6/uL (3.93-5.22); RDW 13.1 % (11.7-14.6); RDW-SD 49.9 fL; WBC 8.05 10^3/uL (4.4-10.8)
[2020-09-29 18:10] LABS: Prothrombin Time 10.3 sec (9.3-11.0)
[2020-09-29 18:17] LABS: PTT Activated 24.6 sec (21.0-27.5)
[2020-09-29] MEDS: Omnipaque 350 MG/ML 100 ML BTL IJ (18:19)
[2020-09-29] MEDS: Normal Saline Flush 10 ML SYR IVP (18:19)
[2020-09-29 18:20] LABS: ALT 27 U/L (14-59); AST 21 U/L (15-37); Albumin 3.9 g/dL (3.4-5.0); Alkaline Phosphatase 78 U/L (46-116); Anion Gap 8.9 mmol/L (3-11); BUN 17 mg/dL (7-18); Bilirubin, Total 0.3 mg/dL (0.2-1.0); CO2 28.1 mmol/L (21.0-32.0); CREATININE 0.76 mg/dL (0.55-1.02); Calcium 8.9 mg/dL (8.5-10.1); Chloride 99 mmol/L (98-107); Glucose 109 mg/dL (74-106); Potassium 3.4 mmol/L (3.5-5.1); Sodium 136 mmol/L (136-145); Total Protein 7.8 g/dL (6.4-8.2)
[2020-09-29 18:21] LABS: Troponin I < 0.05 ng/mL (<0.06)
[2020-09-29 18:40] LABS: Lipase 120 U/L (73-393); NT-proBNP 54 pg/mL (<300)
--- NOTE | 2020-09-29 19:08 | DI.VRAD_ITS ---
PROCEDURE INFORMATION: Exam: CT Angiography Chest With Contrast Exam date and time: 09/29/2020 6:22 PM Age: 49 years old Clinical indication: Other: PT concerned they have cancer; Shortness of breath TECHNIQUE: Imaging protocol: Computed tomographic angiography of the chest with intravenous contrast. 3D rendering (Not supervised by radiologist): MIP and/or 3D reconstructed images were created by the technologist. COMPARISON: CT ABDOMEN PELVIS W 12/25/2019 8:33 AM FINDINGS: Pulmonary arteries: Normal. No pulmonary emboli. Aorta: Unremarkable. No aortic aneurysm. No aortic dissection. Thyroid: Left lobe of the thyroid is heterogeneous. possible 15 mm nodule in the left lobe of the thyroid. Recommend thyroid ultrasound. Lungs: Irregularly shaped nodule in the superior segment of the left lower lobe 8.7 mm. Series 5, image 24. Pleural space: Unremarkable. No pneumothorax. No pleural effusion. Heart: Unremarkable. No cardiomegaly. No pericardial effusion. Lymph nodes: Unremarkable. No enlarged lymph nodes. Bones/joints: Unremarkable. No acute fracture. Soft tissues: Unremarkable. IMPRESSION: 1. Left lobe of the thyroid is heterogeneous. possible 15 mm nodule in the left lobe of the thyroid. Recommend thyroid ultrasound. 2. Irregularly shaped nodule in the superior segment of the left lower lobe 8.7 mm. Series 5, image 24. For both low risk and high risk patients, consider CT Chest at 3 months, PET/CT, or biopsy. (Reference: Johanna) References: Johanna Abdalla et al. Guidelines for Management of Incidental Pulmonary Nodules Detected on CT Images: From the Fleischner Society 2017. Radiology. 2017;284(1):228-243. PROCEDURE INFORMATION: Exam: CT Abdomen And Pelvis With Contrast Exam date and time: 09/29/2020 6:22 PM Age: 49 years old Clinical indication: Other: PT concerned they have cancer; Shortness of breath TECHNIQUE: Imaging protocol: Computed tomography of the abdomen and pelvis with intravenous contrast. COMPARISON: CT ABDOMEN PELVIS W 12/25/2019 8:33 AM FINDINGS: Liver: Normal. No mass. Gallbladder and bile ducts: Normal. No calcified stones. No ductal dilation. Pancreas: Normal. No ductal dilation. Spleen: Normal. No splenomegaly. Adrenal glands: Normal. No mass. Kidneys and ureters: No renal calculus. No ureteral calculus.. Stomach and bowel: Unremarkable. No obstruction. No mucosal thickening. Appendix: Normal appendix Intraperitoneal space: Unremarkable. No free air. No significant fluid collection. Vasculature: Unremarkable. No abdominal aortic aneurysm. Lymph nodes: Unremarkable. No enlarged lymph nodes. Urinary bladder: Unremarkable as visualized. Reproductive: Right ovarian cyst measures 3.3 cm. Left ovarian cyst measures 2.7 cm. Bones/joints: Unremarkable. No acute fracture. Soft tissues: Umbilical hernia contains fat IMPRESSION: 1. Right ovarian cyst measures 3.3 cm. Left ovarian cyst measures 2.7 cm. 2. No renal calculus. No ureteral calculus.. Dictated and Authenticated by: Walter Williamson MD. Ordering:TYLER Nieves MD
--- NOTE | 2020-10-07 09:27 | PDOC.ERCMPRO ---
- If Service Date Differs Date of service: 10/07/20 Time of Service: 09:27 Care Management Progress Note At the request of ED provider, CM coordinates a referral to [facility] for therapy.
== END 2020-09-29 19:50 | disposition home or self-care (01) ==
PROVIDERS: Emergency Provider Student in an Organized Health Care Education/Training Program; PCP Nurse Practitioner Family
DX: R06.02 Shortness of breath (principal); R07.9 Chest pain, unspecified; G89.29 Other chronic pain; R91.1 Solitary pulmonary nodule; Z63.4 Disappearance and death of family member; I10 Essential (primary) hypertension; J44.9 Chronic obstructive pulmonary disease, unspecified; F17.210 Nicotine dependence, cigarettes, uncomplicated
CPT/HCPCS: 36415; 71275; 74177; 80053; 83690; 93005; 99285; 83880; 84484; 85025; 85610; 85730; 93010; J3490

== ENCOUNTER 2020-11-12 16:39 | Outpatient (REF) | payer OTHER, SELFPAY ==
[2020-11-13 04:19] LABS: COVID-19 RT-PCR UVMMC Result Negative (Negative)
== END 2020-11-12 16:59 ==
LOC: LBN 16:39
PROVIDERS: PCP Nurse Practitioner Family; Visit Provider Nurse Practitioner Family
DX: Z11.59 Encounter for screening for other viral diseases (principal)
CPT/HCPCS: U0003

== ENCOUNTER 2020-12-12 01:41 | Outpatient (CLI) | payer OTHER, SELFPAY ==
[2020-12-12 15:09] LABS: Calculated LDL 131 mg/dL (<100); Cholesterol 239 mg/dL (<200); HDL Cholesterol 93 mg/dL (40-60); Triglyceride 75 mg/dL (<150)
[2020-12-12 19:23] LABS: FREE T4 0.81 ng/dL (0.76-1.46); TSH 0.14 uIU/mL (0.36-3.74)
[2020-12-14 17:29] LABS: T3, Total 159 ng/dL (97-169)
[2020-12-17 14:23] LABS: Thyroid Stimulating Immunoglob <1.0 TSI index (<=1.3)
== END 2020-12-12 02:01 ==
PROVIDERS: PCP Nurse Practitioner Family; Visit Provider Nurse Practitioner Family
DX: E78.5 Hyperlipidemia, unspecified (principal); E05.90 Thyrotoxicosis, unspecified without thyrotoxic crisis or storm
CPT/HCPCS: 36415; 80061; 84439; 84443; 84445; 84480

== ENCOUNTER 2021-01-19 01:29 | Outpatient (CLI) | payer OTHER, SELFPAY ==
--- NOTE | 2021-01-19 07:00 | DI.CT_ITS ---
EXAM: CT CHEST WO CLINICAL HISTORY: Reassess LLL nodule,R91.8 TECHNIQUE: Imaging Protocol: Axial computed tomography images with coronal and sagittal reformatted images were created and reviewed CONTRAST MATERIAL: Intravenous: Omnipaque 350 Contrast volume:structured data in ml. COMPARISON: CT CT CHEST PE ABD PELVIS W from 09/29/[address] CHEST PE ABD PELVIS W from 09/29/2020 FINDINGS: Thyroid: Stable bilateral nodules, right greater than left. Tracheobronchial tree: Patent where visualized. Mediastinum and Amparo: No dominant adenopathy or fluid collection. Pulmonary parenchyma: No consolidation. Interval decrease in size nodule in the superior segment of left lower lobe, now measuring 5 x 4 x 6 cm. A few other scattered tiny nodules are seen. Pleura: No effusion or pneumothorax. Heart: The heart is not dilated. No coronary artery calcifications are seen. Aorta: Thoracic aorta non-dilated. Upper abdomen: Unremarkable. Lymph nodes: Within normal limits. Bones: Mild degenerative changes. Soft tissues: Unremarkable. IMPRESSION: Interval decrease in size left lower lobe nodule, consistent with benign findings. No new abnormalit ies. RADIATION DOSE DELIVERED: 764.88mGy.cm Total DLP DATA REPOSITORY: All CT scans at this facility are submitted to the National Radiology Data Registry (NRDR) Dose Index Registry (DIR) with the [employer] (ACR). RADIATION OPTIMIZATION: All CT scans at this facility use at least one of these dose optimization te chniques: automated exposure control; mA and/or kV adjustment per patient size (includes targeted exa ms where dose is matched to clinical indication); or iterative reconstruction.
== END 2021-01-19 01:49 ==
PROVIDERS: PCP Nurse Practitioner Family; Visit Provider Nurse Practitioner Family
DX: R91.1 Solitary pulmonary nodule (principal)
CPT/HCPCS: 71250

== ENCOUNTER 2021-11-23 15:08 | Outpatient (REF) | payer OTHER, SELFPAY ==
--- NOTE | 2021-11-23 14:30 | PAPFT_PTH ---
PATIENT: Geni Cage LOC: [facility] U#:[id number] AGE/SX: 50/F ROOM: RE11/23/[address]: [place] : 1970 BED: DIS: 11/23/2021 SPEC #: [id number] RECD: 11/23/21 18:14 STATUS: TAMIA REMaggie #: [id number] SHARMIN: 11/23/21 14:[address]: Helen Lr DEPT: PENDING SALE TO [facility] Cytology RECD BY: Dali Arias Tissues: 1 - CX/ENDOCX FOR PAP SMEARS Procedures: PAP THIN PREP/[facility] Screening HPV DNA PROBE Comments: [id number]
== END 2021-11-23 15:09 | disposition home or self-care (01) ==
LOC: LBN 15:08
PROVIDERS: PCP Nurse Practitioner Family; Visit Provider Nurse Practitioner Family
DX: Z12.4 Encounter for screening for malignant neoplasm of cervix (principal); Z11.51 Encounter for screening for human papillomavirus (HPV); Z01.419 Encounter for gynecological examination (general) (routine) without abnormal findings
CPT/HCPCS: 88142; 87624

== ENCOUNTER 2021-11-24 02:15 | Outpatient (CLI) | payer OTHER, SELFPAY | END 2021-11-24 02:16 | disposition home or self-care (01) | LOC: LBO 02:15 | PROVIDERS: PCP Nurse Practitioner Family; Visit Provider Nurse Practitioner Family ==

== ENCOUNTER 2021-11-27 04:11 | Outpatient (CLI) | payer OTHER, SELFPAY ==
[2021-11-27 12:10] LABS: Anion Gap 4.9 mmol/L (3-11); BUN 18 mg/dL (7-18); CO2 31.1 mmol/L (21.0-32.0); CREATININE 0.7 mg/dL (0.55-1.02); Calcium 8.8 mg/dL (8.5-10.1); Calculated LDL 142 mg/dL (<100); Chloride 100 mmol/L (98-107); Cholesterol 256 mg/dL (<200); Glucose 96 mg/dL (74-106); HDL Cholesterol 101 mg/dL (40-60); Potassium 4.3 mmol/L (3.5-5.1); Sodium 136 mmol/L (136-145); TSH 0.37 uIU/mL (0.36-3.74); Triglyceride 66 mg/dL (<150)
== END 2021-11-27 04:12 | disposition home or self-care (01) ==
LOC: LBO 04:11
PROVIDERS: PCP Nurse Practitioner Family; Visit Provider Nurse Practitioner Family
DX: I10 Essential (primary) hypertension (principal); E05.90 Thyrotoxicosis, unspecified without thyrotoxic crisis or storm; E78.5 Hyperlipidemia, unspecified
CPT/HCPCS: 36415; 80048; 80061; 84439; 84443

== ENCOUNTER 2022-05-31 02:11 | Outpatient (CLI) | payer OTHER, SELFPAY ==
--- OUTSIDE RECORDS SUMMARY | 2022-05-31 02:15 | XMS_ITS | Encounter Summary ---
:1970 Author Organization [facility] Address [address] [place] [address] Care Team Providers Name Role Phone Helen Lr MAGO Primary Care Provider Encounter Details Date Type Department Care Team Description 10/27/2020 Hospital Encounter Mammography/DXA at Helen Lr , Encounter for [facility] screening mammogram [address] [id number] [phone] Social History Tobacco Use Types Packs/Day Years Used Date Current Every Day Smoker Cigarettes 0.5 Smokeless Tobacco: Never Used Sex Assigned at Date Recorded Not on file documented as of this encounter Medications at Time of Discharge Medication Sig Dispensed Refills Start Date End Date omeprazole (PriLOSEC) 40 mg Take 40 mg by 0 Capsule, Delayed Release(E.C.) mouth daily. fluticasone (FLONASE ALLERGY daily. 0 RELIEF) 50 mcg/actuation [facility], Suspension doxycycline (VIBRA-TABS) 100 100 mg daily. 0 03/12/2017 mg Tablet PROAIR HFA 90 mcg/actuation Inhale 2 puffs 0 06/15 HFA Aerosol Inhaler into the lungs every 6 hours as needed. hydroCHLOROthiazide Take 25 mg by 0 10/25/2017 (HYDRODIURIL) 25 mg Tablet mouth daily. latanoprost (XALATAN) 0.005 % Place 1 drop into 0 10/07/2017 Drops both eyes daily. pantoprazole (PROTONIX) 20 mg Take 20 mg by 0 Tablet, Delayed Release (E.C.) mouth daily. potassium chloride SA Take 10 mEq by 0 11/01/2017 (K-DUR;KLOR-CON) 10 mEq Tab mouth daily. Sust.Rel. Particle/Crystal documented as of this encounter Plan of Treatment Upcoming Encounters Date Type Specialty Care Team Description 06/21/2022 Office Visit Endocrinology Asa Castañeda MD [facility] [place], [place] [address] (Wo rk) documented as of this encounter Procedures Procedure Name Priority Date/Time Associated Diagnosis Comme nts MAMMO SCREENING CAD Routine 10/27/2020 12:52 PM Encounter for Results for this AND DARYL BILATERAL EST screening mammogram pr ocedure are in for breast cancer the result s section. documented in this encounter Results Mammo Screening Cad and Daryl Bilateral (10/27/2020 12:52 PM EST) Anatomical Region Laterality Modality Breast Bilateral Mammography Specimen (Source) Anatomical Location Collection Method / Collectio n Time Received Time / Laterality Volume Narrative 10/28/2020 10:11 AM EST BILATERAL MAMMOGRAPHY REASON FOR EXAM: f/u 10.23.[place] [facility]CH[place]: CC and MLO views were obtaine d of each breast using standard 2-D mammography as well as 3-D tomosynthesis . Computer aided detection was used. Comparison: This is compared with prior images. FINDINGS: There are scattered areas of f ibroglandular density. There are no suspicious microcalcifications, masses, or areas of distortion. The pattern is stable. Right breast biopsy marker in pl pen[place], no interval change of surrounding parenchyma. No suspicious findings. CONCLUSION: No mammographic evidence of malignancy. RECOMMENDATION: Routine screening. A result letter has been sent to this pa sandra by [facility]. BIRADS CATEGORY 2: Benign findings. * ??Regular screening mammograms startin g between age 40 and 50 reduces the risk of from breast cancer. * ??All screening tests have both risks and benefits. These risks and benefits should be assessed for each individual p atient through discussion with their provider to determine their preferred east cancer screening schedule. * ??Women should report any breast panchal es to a health care provider right away. * ??Some women, because of their family history, a genetic tendency, or other factors, should be screened with annual breast MRI as well as with mammograms. (The number of women who fall into this category is very small). Patients and health care providers should discuss eac h patients history to decide if earlier screening and/or breast MRI are appropri ate. * ??Screening should continue as long as a woman is in good health and is expected to live 10 years or longer. * ??Screening mammography may not detect 10-15% of breast cancers. Thank you for letting us participate in the care of this patient. For questions regarding this report, please contact e number below. ? Electronically signed by: Eddie Cárdenas MD, [facility] ([phone]), at 10/28/2020 10:11 AM Helen Lr APRN IMG MAMMO ORDERABLES documented in this encounter Visit Diagnoses Diagnosis Encounter for screening mammogram for br east cancer documented in this encounter Care Teams Heel Coverer Machine Operator Relationship Specialty Start Date End Date Helen Lr APRN PCP - General Family Medicine 12/11/[address] [place] [address] documented as of this encounter
--- OUTSIDE RECORDS SUMMARY | 2022-05-31 02:15 | XMS_ITS | Encounter Summary ---
:1970 [place] [address] Care Team Providers Name Role Phone Helen Lr MA[employer]GER [employer] Primary Care Provider Encounter Details Date Type Department Care Team Description 12/04/2018 Ancillary Radiology Library Helen Lr Breas t mass, right Procedure at [facility] [employer] [address] [id number] [phone] Social History Tobacco Use Types Packs/Day Years Used Date Current Every Day Smoker Cigarettes 1 Smokeless Tobacco: Never Used Sex Assigned at Date Recorded Not on file documented as of this encounter Plan of Treatment Upcoming Encounters Date Type Specialty Care Team Description 06/21/2022 Office Visit Endocrinology Asa Castañeda MD [facility] [address] [place] [address] (Wo rk) documented as of this encounter Procedures Procedure Name Priority Date/Time Associated Diagnosis Comme nts REQUEST FOR 2ND Routine 12/04/2018 8:48 AM Breast mass, right Results for this READ MAMMO EST procedure are i n the results section. documented in this encounter Results Request for 2nd read Mammo (12/04/2018 8:48 AM EST) Anatomical Region Laterality Modality SO Specimen (Source) Anatomical Location Collection Method / Collectio n Time Received Time / Laterality Volume Impressions 12/04/2018 11:42 AM EST The Right breast demonstrates a 1.8 cm ill-defined mass felt to correspond to a sonographically complex mass in the upper inner quadrant, at 1:00, 4 cm from the nipple. RECOMMENDATION: Repeat Right breast ultr asound of the upper inner quadrant for further evaluation of a 1.8 cm ill-defin ed mammographic mass in the upper inner quadrant at 1:00, 4 cm from the nipple. Additional right mammographic images may be performed, at the discretion of the r adiologist. Right -BI-RADS Category 0: Incomplete-Ne ed Additional Imaging Evaluation and/or Prior Mammograms for Comparison Left -BI-RADS Category 1: Negative. Please note: Breast ultrasound is operat or dependent. Complete assessment of the breast tissue is not possible through st atic images or cine loops. Because breast ultrasound is a dynamic process t he interpretive value of outside images is limited. ?? Please note: The interpretation of the [facility] Breast Imaging Radiologist subspecialist may differ fro m the original radiologists interpretation. This is usually not due to a deficiency of the original interpreting radiologist, rather due to the greater skill level afforded by sub-specialization in the field and/or r easonable variations in interpretations. If you have a concern regarding the D- interpretation you may contact the [facility] Breast Assignment Clerk Office at . Thank you for letting us participate in the care of this patient. For questions regarding this report, please contact e number below. ? Narrative 12/04/2018 11:42 AM EST INTERPRETATION OF OUTSIDE BREAST IMAGING I have been asked to consult on this pat ient by Dr. Lr because he/she believes a review of this study may jackman ge or alter the care of this patient. [place] DATES: 11/10/2018, 11/21/2018 TYPE OF EXAM: Bilateral mammogram 2017, diagnostic right mammogram, and right breast ultrasound on 11/21/2018. CLINICAL HISTORY: RIGHT BREAST COMPLEX M ASS, CAT 4; ?BX; What Modality is the exam? Mammography; Body Part (please add comments as necessary): RIGHT BREAST; I believe a reinterpretation of this exam may alter care of Patient. Yes. ?? COMPARISONS: None; baseline exam. TECHNIQUE: 2-D direct digital capture an d 3-D amandeep synthesis mammograms of the right and left breast were performed FINDINGS: The breasts are composed of scattered gl andular density. RIGHT Right Mammogram: The right breast demons trates a 1.8 cm round indistinct, mass in the upper inner quadrant at 1:00, 4 c m from the nipple. Right Ultrasound: By report, targeted ul trasound of the right upper outer quadrant at 1:00, 4 cm from the nipple d emonstrates a complex mass characterized by a hypoechoic center with hyperechoic rim; no associated vascularity or shadowing seen; this sonographic finding was felt to correspond to the mammographic abnormality. LEFT Left Mammogram: There are no suspicious microcalcifications, masses, or areas of distortion. Procedure Note Melinda Fry MD - 9 INTERPRETATION OF OUTSIDE BREAST IMAGING I have been asked to consult on this pat ient by Dr. Lr because he/she believes a review of this study may jackman ge or alter the care of this patient. STUDIES FROM: [place], [place]. DATES: 11/10/2018, 11/21/2018 TYPE OF EXAM: Bilateral mammogram 2017, diagnostic right mammogram, and right breast ultrasound on 11/21/2018. CLINICAL HISTORY: RIGHT BREAST COMPLEX M ASS, CAT 4; ?BX; What Modality is the exam? Mammography; Body Part (please add comments as necessary): RIGHT BREAST; I believe a reinterpretation of this exam may alter care of Patient. Yes. COMPARISONS: None; baseline exam. TECHNIQUE: 2-D direct digital capture an d 3-D amandeep synthesis mammograms of the right and left breast were performed FINDINGS: The breasts are composed of scattered gl andular density. RIGHT Right Mammogram: The right breast demons trates a 1.8 cm round indistinct, mass in the upper inner quadrant at 1:00, 4 c m from the nipple. Right Ultrasound: By report, targeted ul trasound of the right upper outer quadrant at 1:00, 4 cm from the nipple d emonstrates a complex mass characterized by a hypoechoic center with hyperechoic rim; no associated vascularity or shadowing seen; this sonographic finding was felt to correspond to the mammographic abnormality. LEFT Left Mammogram: There are no suspicious microcalcifications, masses, or areas of distortion. IMPRESSION The Right breast demonstrates a 1.8 cm i ll-defined mass felt to correspond to a sonographically complex mass in the upper inner quadrant, at 1:00, 4 cm from the nipple. RECOMMENDATION: Repeat Right breast ultr asound of the upper inner quadrant for further evaluation of a 1.8 cm ill-defin ed mammographic mass in the upper inner quadrant at 1:00, 4 cm from the nipple. Additional right mammographic images may be performed, at the discretion of the r adiologist. Right -BI-RADS Category 0: Incomplete-Ne ed Additional Imaging Evaluation and/or Prior Mammograms for Comparison Left -BI-RADS Category 1: Negative. Please note: Breast ultrasound is operat or dependent. Complete assessment of the breast tissue is not possible through st atic images or cine loops. Because breast ultrasound is a dynamic process t he interpretive value of outside images is limited. Please note: The interpretation of the [facility] Breast Imaging Radiologist subspecialist may differ fro m the original radiologists interpretation. This is usually not due to a deficiency of the original interpreting radiologist, rather due to the greater skill level afforded by sub-specialization in the field and/or r easonable variations in interpretations. If you have a concern regarding the [facility] interpretation you may contact the [facility] Breast Assignment Clerk Office at . Thank you for letting us participate in the care of this patient. For questions regarding this report, please contact e number below. Electronically signed by: Melinda Rodríguez [facility] ([phone]), at 12/04/2018 11:42 AM Helen Lr APRN IMG OUTSIDE INTERPRETATION O RDERABLES documented in this encounter Visit Diagnoses Diagnosis Breast mass, right Lump or mass in breast documented in this encounter Care Teams Habitat Biologist Relationship Specialty Start Date End Date Helen Lr APRN PCP - General Family Medicine 12/11/[address] [place] [address] documented as of this encounter
--- OUTSIDE RECORDS SUMMARY | 2022-05-31 02:15 | XMS_ITS | Encounter Summary ---
:1970 Author Organization [facility] [place] [address] Care Team Providers Name Role Phone Mehnaz Lubin APRN Primary Care Provider Encounter Details Date Type Department Care Team Description 10/17/2018 Telephone Endocrinology at [facility] [place] [address] Social History Tobacco Use Types Packs/Day Years Used Date Current Every Day Smoker Cigarettes 1 Smokeless Tobacco: Never Used Sex Assigned at Date Recorded Not on file documented as of this encounter Miscellaneous Notes Telephone Encounter - Aleida Perez LPN - 10/26/2018 1:04 PM EST Called patient at which time message from Dr Jaquez was read to her. Patient agrees with plan of care. Call transferred to medical assistant secretary 03/13/19 Telephone Encounter - Aleida Perez LPN - 10/25/2018 1:59 PM EST Images from the original note were not included. Geni Cage?? Sex: Female, 47 y.o., 1970 Weight: 108 kg (238 lb) (H) ... PCP: Mehnaz Lubin APRN Need Aircraft Landing Gear Inspector: None My Pat List Reminders: None myD-H: Code Exp Next Appt: 11/09/2018 Message Received: Today Message Contents Satish Jaquez DO sent to Aleida Perez LPN Caller: Unspecified (1 week ago) ?? She had a biopsy in January of 2018, and therefore would not be due back until at least January of 2019.She can be seen by either myself or Dr Jimenez (who saw her last). Called patient. Message left on v/m for patient to r/c to nurse at which time above message will be read to her. Telephone Encounter - Aleida Perez LPN - 10/25/2018 8:34 AM EST Second message from patient asking if she needs labs and U/S in Oct to have done locally or reschedule with Dr Jaquez in November as she has company coming and can not make appointment with Dr Jaquez Nov 09. First available is March [address] Jaquez. Forward to Dr Jaquez to verify if patient can wait until February. Telephone Encounter - Aleida Perez LPN - 10/17/2018 4:05 PM EST Images from the original note were not included. R/c to patient who is scheduled to see Dr Jaquez 11/09/18. Patient is asking if it would be possible tohave thyroid U/S done at [facility]. Per patient she would like to either have labs and U/S done locally if possible or reschedule to first of year. When asked patient states that she does experience some racing heart, trouble sleeping and has missed some periods again. 07/07/18 Note IsabellakarliGeni?? Female, 47 y.o., 1970 Weight: 108 kg (238 lb) Home: PCP: Mehnaz Lubin APRN myD-H: Code Exp Next Appt: None ?? Message Received: Today ? Leonid, Satish, DO Aleida Perez LPN ? Caller: Unspecified (3 days ago, ??1:10 PM) ? She has very mild sub-clinical hyperthyroidism. I would not recommend treatment at this point. But she should be scheduled to see me in 4-5 months for f/u. Please verify that she is not taking Biotin. ? Previous Messages documented in this encounter Plan of Treatment Upcoming Encounters Date Type Specialty Care Team Description 06/21/2022 Office Visit Endocrinology Asa Castañeda MD [facility] [address] [place], [place] [address] (Wo rk) documented as of this encounter Visit Diagnoses Not on filedocumented in this encounter Care Teams Stone And Concrete Washer Relationship Specialty Start Date End Date Mehnaz Lubin APRN PCP - General Family Medicine 11/11/17 12/10/18 documented as of this encounter
--- OUTSIDE RECORDS SUMMARY | 2022-05-31 02:15 | XMS_ITS | Encounter Summary ---
:1970 Author Organization [facility] [place] [address] Care Team Providers Name Role Phone Helen Lr APRN Primary Care Provider Reason for Visit Reason Onset Date Comments Appointment 03/04/2022 Encounter Details Date Type Department Care Team Description 03/04/2022 Telephone Endocrinology at [facility] C Roberta Hernandez [facility] [place] [address] Social History Tobacco Use Types Packs/Day Years Used Date Current Every Day Smoker Cigarettes 0.5 Smokeless Tobacco: Never Used Sex Assigned at Date Recorded Not on file documented as of this encounter Miscellaneous Notes Telephone Encounter - Roberta Hernandez I - 03/04/2022 10:34 AM EDT Unable to contact patient to schedule from referral. Letter sent and referral closed documented in this encounter Plan of Treatment Upcoming Encounters Date Type Specialty Care Team Description 06/21/2022 Office Visit Endocrinology Asa Castañeda MD [facility] [address] [place] [address] (Wo rk) documented as of this encounter Visit Diagnoses Not on filedocumented in this encounter Care Teams Research Worker Kitchen Relationship Specialty Start Date End Date Helen Lr APRN PCP - General Family Medicine 12/11/[address] [place] [address] documented as of this encounter
--- OUTSIDE RECORDS SUMMARY | 2022-05-31 02:15 | XMS_ITS | Encounter Summary ---
:1970 Author Organization [facility] [place] [address] Care Team Providers Name Role Phone Mehnaz Lubin MAGO Primary Care Provider Reason for Visit Reason Comments Thyroid Nodule Encounter Details Date Type Department Care Team Description 01/27/2018 Office Visit Endocrinology at [facility] Gerhard Ayoub MD [facility] [place] [address] Thyroid nodule [facility] Shae Summers MD [facility] [place] [address] [place] [address] Social History Tobacco Use Types Packs/Day Years Used Date Current Every Day Smoker Cigarettes 1 Smokeless Tobacco: Never Used Sex Assigned at Date Recorded Not on file documented as of this encounter Last Filed Vital Signs Vital Sign Reading Time Taken Comments Blood Pressure 135/84 01/27/2018 9:57 AM EDT Pulse 99 01/27/2018 9:57 AM EDT Temperature - - Respiratory Rate - - Oxygen Saturation - - Inhaled Oxygen Concentration - - Weight 108 kg (238 lb) 01/27/2018 9:57 AM EDT Height 170.2 cm (5' 7) 01/27/2018 9:57 AM EDT Body Mass Index 37.28 01/27/2018 9:57 AM EDT documented in this encounter Progress Notes Shae Luciano MD - 01/27/2018 10:00 AM EDT THYROID FNA BIOPSY NOTE Patient is a 47 y.o. female who had complaints of dysphagia and globus sensation and her PCP sent her for US neck that was done on 10/14/17 which showed multinodular thyroid gland. Her TSH done on 09/28/17: 0.16L. We repeated US and found bilateral thyroid nodules but due to her suppressed TSH we senther for NM imaging - which was done on 01/03/18 and she was found to have a photopenic area in the inferior aspect of left lobe. She returns today for FNA of left inferior pole nodule. We will not perform FNA of the right mid pole nodule found on previous ultrasound because when reviewing NM scan it shows that the area is hyperfunctioning. We will obtain repeat TFTs today for trend. Informed consent was obtained after a discussion of the nature of the procedure, its risks, benefitsand possible alternatives. Immediately prior to the start of the procedure a time out was taken: - The patient's identity was confirmed using two identifiers - The intended procedure, patient positioning and availability of all required equipment was also confirmed. - The proper site/side of the nodule was confirmed by visualization with ultrasound. 1.4 cm x 1.0 cm x1.1 cm The biopsy site on the patient's neck was prepared using isopropyl alchohol. 4 passes of a 25g needle were performed at each site. The needle placement was ultrasound guided. The needle was visualized in the nodule in each pass. The procedure was well tolerated by the patient. The bleeding was minimal. There was no immediate complications. The attending physician, Dr. Jimenez, was present throughout the entire procedure. Shae Luciano MD Endocrinology Fellow, PGY-5 01/27/2018 Gerhard Jimenez MD - 01/27/2018 10:00 AM EDT I have seen the patient and reviewed Dr. Luciano's above history and I agree with the details as written. The assessment and plan were formulated in discussion with me and I agree with them as documented. I also directly supervised thyroid US and FNA under US guidance and agree with the findings as written. Gerhard Jimenez MD, PhD, FACP, FACE documented in this encounter Plan of Treatment Upcoming Encounters Date Type Specialty Care Team Description 06/21/2022 Office Visit Endocrinology Asa Castañeda MD [facility] [place], [place] [address] (Wo rk) documented as of this encounter Procedures Procedure Name Priority Date/Time Associated Comments Diagnosis THYROID STIMULATING Routine 01/27/2018 11:26 Thyroid nodule Re sults for this IMMUNOGLOBULINS AM EDT procedure ar e in the results section. T3 TOTAL Routine 01/27/2018 11:26 Thyroid nodule Results f or this AM EDT procedure are i n the results section. TSH Routine 01/27/2018 11:26 Thyroid nodule Results f or this AM EDT procedure are i n the results section. T4, FREE Routine 01/27/2018 11:26 Thyroid nodule Results f or this AM EDT procedure are i n the results section. NON-INSOLE AND HEEL STIFFENER FINAL REPORT Routine 01/27/2018 11:18 Res ults for this AM EDT procedure are i n the results section. CYTOPATHOLOGY Routine 01/27/2018 10:32 Thyroid nodule Results for this NON-GYNECOLOGICAL AM EDT procedure are in the results section. documented in this encounter Results Thyroid Stimulating Immunoglobulins (01/27/2018 11:26 AM EDT) P athologist Signature TSI <0.10 <=0.55 IU/L [facility] Specimen Anatomical Collection Method Collection Time Receive d Time (Source) Location / / Volume Laterality Blood specimen 01/27/2018 11:26 8 (specimen) AM EDT 12:59 PM EDT Resulting Agency Comment Spec In Lab Gerhard Jimenez MD IMMUNOLOGY ORDERABLES Performing Organization Address City/State/ZIP [place] [address] TSH (01/27/2018 11:26 AM EDT) P athologist Signature TSH 0.81 0.27 - 4.20 [facility] mlU/ML [facility] Specimen Anatomical Collection Method Collection Time Receive d Time (Source) Location / / Volume Laterality Blood specimen 01/27/2018 11:26 8 (specimen) AM EDT 11:32 AM EDT Resulting Agency Comment Spec In Lab Gerhard Jimenez MD CHEMISTRY ORDERABLES Performing Organization Address City/[facility]/ZIP Code Phon e Number [address] T4, free (01/27/2018 11:26 AM EDT) P athologist Signature Free T4 1.04 0.93 - 1.70 [facility] LABORATORY Specimen Anatomical Collection Method Collection Time Receive d Time (Source) Location / / Volume Laterality Blood specimen 01/27/2018 11:26 8 (specimen) AM EDT 11:32 AM EDT Resulting Agency Comment Spec In Lab Gerhard Jimenez MD CHEMISTRY ORDERABLES Performing Organization Address [facility] [place] [address] T3 Total (01/27/2018 11:26 AM EDT) P athologist Signature T3, Total 164 75 - 170 [facility] LABORATORY Specimen Anatomical Collection Method Collection Time Receive d Time (Source) Location / / Volume Laterality Blood specimen 01/27/2018 11:26 8 (specimen) AM EDT 11:32 AM EDT Resulting Agency Comment Spec In Lab Gerhard Jimenez MD CHEMISTRY ORDERABLES Performing Organization Address City/[facility]/ZIP [facility] [place] [address] Non-Meter Record Clerk Final Report (01/27/2018 11:18 AM EDT) Component Value Ref Test Analysis Performed At [facility] Range Method Time Signature Non-Meter Record Clerk [id number] ? Location: [address] [place] [address] Final Report [place] The signing pathologist has (i) examined the relevant preparation(s) for the [facility] specimen(s) and (ii) rendered or confirmed the diagnosis(es) . HOSPITAL LABORATORY . ? No n-Meter Record Clerk Final DIAGNOSIS Benign Electronically signed by: ??Morgan GILLESPIE, Justen Cross Verified: ??02/01/2018 ?Cytopathologist Performed at: ??-[facility] [place], [place], [place] DISCUSSION Thyroid: left (US-guided FNA) - Benign (see note). Compatible with a benign fol licular nodule (includes adenomatoid nodule and colloid nodule). Cytologic preservation: ?? Adequate. Cellularity (follicular cells): ?? Low. Colloid: ?? Moderate to abundant quantity present. Macrophages: ?? Numerous. Architectural pattern: ?? Predominantly macrofollicular pattern. Note: Recommend clinicopatho logic correlation and follow up as clinically indicated. Reference: Vanda CORONADO, Alma Rosa ES. The [place] System for Reporting Thyroid Cytopathology. [place]: Ye; 2018. CLINICAL INFORMATION Specimen Source : Thyroid: left (US-guided FNA - assisted) Pertinent Clinical Data and Significant Therapy: 47 yo female with multinodul ar goiter, NM imaging showed photopenic area on left lower pole - will FNA this left nodule today Clinical Impression: Left thyroid nodule Pertinent Radiologic Findings: Size: 1.4cm x 1.0 cm x 1.1cm Echogenicity: Hypo Cystic: Partial Calcification: No Vascularity: Peripheral . CLINICAL INFORMATION Gross Description: Received in CytoLyt approxim ately 10 mL total volume of cloudy, pink fluid, with light flecks. Total Preparation: Liquid-Based Prep 1; Diff-Quik 2; Pap Sta in 2. Fine Needle Aspiration Immediate Assessment: Evaluation Episode #1 (1 slide): Adequate for final diagnosis. Clusters of follicular epithelial cells and colloid present. Immediate Assessment by: Enrique Mora MD. I have personally examined the cytologic slides. My interpretation is as stated. Note: Immediate Assessment results are p reliminary assessments of adequacy and diagnosis. See final diagnostic comments for completed inte rpretation. Specimen (Source) Anatomical Collection Method Collection Time Re ceived Time Location / / Volume Laterality 01/27/2018 11:18 AM EDT Shae Luciano MD PATHOLOGY/CYTOLOGY ORDERABLE S Performing Organization Address City/State/[place] [address] Cytopathology Non-Gynecological (01/27/2018 10:32 AM EDT) Specimen Anatomical Collection Method Collection Time Receive d Time (Source) Location / / Volume Laterality AP Specimen 01/27/2018 10:32 01/27/2018 AM EDT 10:32 AM EDT Narrative [facility] - 01/27/2018 10:32 AM EDT Specimen requisition ordered. ??Separate Pathology report to follow Gerhard Jimenez MD PATHOLOGY/CYTOLOGY ORDERABLE S Performing Organization Address City/State/[place] [address] documented in this encounter Visit Diagnoses Diagnosis Thyroid nodule Nontoxic uninodular goiter documented in this encounter Care Teams Registered Nurse Teacher Relationship Specialty Start Date End Date Mehnaz Lubin, POLICE LIEUTENANT PRECINCT PCP - General Family Medicine 11/11/17 12/10/18 documented as of this encounter
--- OUTSIDE RECORDS SUMMARY | 2022-05-31 02:15 | XMS_ITS | Encounter Summary ---
:1970 Author Organization [facility] Address [facility] [place] [address] Care Team Providers Name Role Phone Wu Young MD, Femi Primary Care Provider Encounter Details Date Type Department Care Team Description 10/28/2017 Telephone Endocrinology at [facility] C Kamryn Eric MD [place] [address] ENDOCRINOLOGY DEPT [phone] [place] [address] (Wo rk) Social History Tobacco Use Types Packs/Day Years Used Date Never Assessed Sex Assigned at Date Recorded Not on file documented as of this encounter Miscellaneous Notes Telephone Encounter - Kamryn Eric MD - 10/28/2017 9:59 AM EST Left message for Mehnaz Lubin HAT BINDER to contact me on Tuesday morning when she returns to discuss patient. documented in this encounter Plan of Treatment Upcoming Encounters Date Type Specialty Care Team Description 06/21/2022 Office Visit Endocrinology Asa Castañeda MD [facility] [address] [place] [address] (Wo rk) documented as of this encounter Visit Diagnoses Not on filedocumented in this encounter Care Teams Laborer [employer] Relationship Specialty Start Date End Date Femi Washburn MD PCP - General 10/06/10 11/10/17 [address] [place] [address] (work) documented as of this encounter
--- OUTSIDE RECORDS SUMMARY | 2022-05-31 02:15 | XMS_ITS | Encounter Summary ---
:1970 Author Organization [facility] [place] [address] Care Team Providers Name Role Phone Mehnaz Lubin MAGO Primary Care Provider Reason for Visit Reason Onset Date Comments Results 01/12/2018 Encounter Details Date Type Department Care Team Description 01/06/2018 Telephone Endocrinology at [facility] Renetta Reddy [facility] [place] [address] Social History Tobacco Use Types Packs/Day Years Used Date Current Every Day Smoker Cigarettes 1 Smokeless Tobacco: Never Used Sex Assigned at Date Recorded Not on file documented as of this encounter Miscellaneous Notes Telephone Encounter - Shae Luciano MD - 01/12/2018 10:59 AM EST Called patient to let her know that NM 123 scan did not show hyperfunctioning nodules - the patient's 4 hour thyroid uptake was 23.8% which is wnl, instead she will need FNA of the two nodules (right and left sided) in the next 1-3 months. Will have my secretaries call her to schedule this for her. All questions answered, she verbalized understanding. Telephone Encounter - Renetta Alegria RN - 01/09/2018 2:48 PM EST Patient called again hoping Dr. Luciano will call her with results of thyroid scan. Telephone Encounter - Renetta Alegria RN - 01/06/2018 4:47 PM EST Patient called hoping Dr. Luciano would contact her with her thyroid scan results. Will forward request to Provider. documented in this encounter Plan of Treatment Upcoming Encounters Date Type Specialty Care Team Description 06/21/2022 Office Visit Endocrinology Asa Castañeda MD [facility] [address] [place] [address] (Wo rk) documented as of this encounter Visit Diagnoses Not on filedocumented in this encounter Care Teams Concrete Worker Relationship Specialty Start Date End Date Mehnaz Lubin APRN PCP - General Family Medicine 11/11/17 12/10/18 documented as of this encounter
--- OUTSIDE RECORDS SUMMARY | 2022-05-31 02:15 | XMS_ITS | Encounter Summary ---
:1970 Author Organization [facility] [place] [address] Care Team Providers Name Role Phone Mehnaz Lubin APRN Primary Care Provider Encounter Details Date Type Department Care Team Description 01/02/2018 Telephone Endocrinology at [facility] C [place] [address] Social History Tobacco Use Types Packs/Day Years Used Date Current Every Day Smoker Cigarettes 1 Smokeless Tobacco: Never Used Sex Assigned at Date Recorded Not on file documented as of this encounter Miscellaneous Notes Telephone Encounter - Aleida Perez LPN - 01/03/2018 12:54 PM EST Opened in error documented in this encounter Plan of Treatment Upcoming Encounters Date Type Specialty Care Team Description 06/21/2022 Office Visit Endocrinology Asa Castañeda MD [facility] [place] [address] (Wo rk) documented as of this encounter Visit Diagnoses Not on filedocumented in this encounter Care Teams Manager Cost Relationship Specialty Start Date End Date Mehnaz Lubin APRN PCP - General Family Medicine 11/11/17 12/10/18 documented as of this encounter
--- OUTSIDE RECORDS SUMMARY | 2022-05-31 02:15 | XMS_ITS | Encounter Summary ---
:1970 Author Organization [facility] [place] [address] Care Team Providers Name Role Phone Helen Lr APRN Primary Care Provider Encounter Details Date Type Department Care Team Description 06/03/2020 Telephone Endocrinology at [facility] Socorro [facility] [place] [address] Social History Tobacco Use Types Packs/Day Years Used Date Current Every Day Smoker Cigarettes 1 Smokeless Tobacco: Never Used Sex Assigned at Date Recorded Not on file documented as of this encounter Miscellaneous Notes Telephone Encounter - Socorro Romero - 06/03/2020 10:25 AM EDT Left msg confirming if pt is coming in clinic for appt or telehealth, dr talavera will be in office that day Asked for return call documented in this encounter Plan of Treatment Upcoming Encounters Date Type Specialty Care Team Description 06/21/2022 Office Visit Endocrinology Asa Talavera MD [facility] [place] [address] (Wo rk) documented as of this encounter Visit Diagnoses Not on filedocumented in this encounter Care Teams Elastic Attacher Chainstitch Relationship Specialty Start Date End Date Helen Lr APRN PCP - General Family Medicine 12/11/[address] [place] [address] documented as of this encounter
--- OUTSIDE RECORDS SUMMARY | 2022-05-31 02:15 | XMS_ITS | Encounter Summary ---
:1970 Author Organization [facility] [place] [address] Care Team Providers Name Role Phone Mehnaz Lubin MAGO Primary Care Provider Reason for Visit Reason Onset Date Comments Results 02/01/2018 Encounter Details Date Type Department Care Team Description 02/01/2018 Telephone Endocrinology at [facility] C Shae Luciano MD [facility] [place] [address] ENDOCRINOLOGY DEPT [phone] [place], [place] [address] (Wo rk) Social History Tobacco Use Types Packs/Day Years Used Date Current Every Day Smoker Cigarettes 1 Smokeless Tobacco: Never Used Sex Assigned at Date Recorded Not on file documented as of this encounter Miscellaneous Notes Telephone Encounter - Shae Luciano MD - 02/01/2018 11:10 AM EDT Images from the original note were not included. Called again to convey results of FNA - benign. Will need to return in 1 year for repeat US as follow up. Component Latest Ref Rng & Units 01/27/2018 T3, Total 75 - 170 ng/dL 164 Free T4 0.93 - 1.70 ng/dL 1.04 TSH 0.27 - 4.20 mlU/ML 0.81 TFTs wnl also. Telephone Encounter - Shae Luciano MD - 02/01/2018 9:59 AM EDT Called patient to convey the following results - unable to reach her; will attempt to call back later today. FNA results are benign. ?Non-Computer Application Developer Final DIAGNOSIS Benign documented in this encounter Plan of Treatment Upcoming Encounters Date Type Specialty Care Team Description 06/21/2022 Office Visit Endocrinology Asa Castañeda MD [facility] [address] [place] [address] (Wo rk) documented as of this encounter Visit Diagnoses Not on filedocumented in this encounter Care Teams Director Of Career Resources Relationship Specialty Start Date End Date Mehnaz Lubin APRN PCP - General Family Medicine 11/11/17 12/10/18 documented as of this encounter
--- OUTSIDE RECORDS SUMMARY | 2022-05-31 02:15 | XMS_ITS | Encounter Summary ---
:1970 Author Organization [facility] [place] [address] Care Team Providers Name Role Phone Adeline Helen MERCEDES Primary Care Provider Encounter Details Date Type Department Care Team Description 08/08/2019 Orders Only Endocrinology at [facility] Ivy Wright, Hyperthyroidism [facility] [place] [address] Social History Tobacco Use Types Packs/Day Years Used Date Current Every Day Smoker Cigarettes 1 Smokeless Tobacco: Never Used Sex Assigned at Date Recorded Not on file documented as of this encounter Plan of Treatment Upcoming Encounters Date Type Specialty Care Team Description 06/21/2022 Office Visit Endocrinology Asa Castañeda MD [facility] [place], [place] [address] (Wo rk) documented as of this encounter Visit Diagnoses Diagnosis Hyperthyroidism Thyrotoxicosis without mention of goiter or other cause, without mention of thyrotoxic crisis or storm documented in this encounter Care Teams Climatology Teacher Relationship Specialty Start Date End Date Helen Lr APRN PCP - General Family Medicine 12/11/[address] [place] [address] documented as of this encounter
--- OUTSIDE RECORDS SUMMARY | 2022-05-31 02:15 | XMS_ITS | Encounter Summary ---
:1970 Author Organization [facility] [place] [address] Care Team Providers Name Role Phone Mehnaz Lubin APRN Primary Care Provider Encounter Details Date Type Department Care Team Description 12/09/2017 Telephone Endocrinology at [facility] [place] [address] Social History Tobacco Use Types Packs/Day Years Used Date Current Every Day Smoker Cigarettes 1 Smokeless Tobacco: Never Used Sex Assigned at Date Recorded Not on file documented as of this encounter Miscellaneous Notes Telephone Encounter - Aleida Perez LPN - 12/12/2017 11:51 AM EST Images from the original note were not included. Geni Cage?? Female, 47 y.o., 1970 Weight: 109 kg (240 lb 4.8 oz) Home: PCP: Mehnaz Lubin APRN myD-H: Pending Next Appt: None ?? Message Received: Today ? Shae Luciano MD Isham, Gail, LPN ? Caller: Unspecified (3 days ago, ??4:12 PM) ? Yes it is ok ? Previous Messages Called patient at which time above message was read to her. Telephone Encounter - Aleida Perez LPN - 12/09/2017 4:12 PM EST Message on endo nurse line from patient having nuclear scan at [facility] on . They told me all mymeds are okay. I take potassium and chew it. It is really salty. I just want to be sure that is okayto take documented in this encounter Plan of Treatment Upcoming Encounters Date Type Specialty Care Team Description 06/21/2022 Office Visit Endocrinology Asa Castañeda MD [facility] [address] [place], [place] [address] (Wo rk) documented as of this encounter Visit Diagnoses Not on filedocumented in this encounter Care Teams Parks And Recreation Worker Relationship Specialty Start Date End Date Mehnaz Lubin APRN PCP - General Family Medicine 11/11/17 12/10/18 documented as of this encounter
--- OUTSIDE RECORDS SUMMARY | 2022-05-31 02:15 | XMS_ITS | Encounter Summary ---
:1970 Author Organization [facility] [address] Care Team Providers Name Role Phone Helen Lr APRN Primary Care Provider Encounter Details Date Type Department Care Team Description 12/19/2020 Orders Only Endocrinology at [facility] Asa Jorgensen [facility] MD [place] [address] [place] [phone] [place] [address] Social History Tobacco Use Types Packs/Day Years Used Date Current Every Day Smoker Cigarettes 0.5 Smokeless Tobacco: Never Used Sex Assigned at Date Recorded Not on file documented as of this encounter Plan of Treatment Upcoming Encounters Date Type Specialty Care Team Description 06/21/2022 Office Visit Endocrinology Asa Castañeda MD [facility] [place], [place] [address] (Wo rk) Scheduled Orders Name Type Priority Associated Diagnoses Order S chedule TSH Lab STAT Subclinical hyperthyroidism Expected: 12/08/2021 (Approximate), Expires: 06/06/2022 T4, free Lab Routine Subclinical hyperthyroidism Expected: 12/08/2021 (Approximate), Expires: 06/06/2022 T3 Total Lab Routine Subclinical hyperthyroidism Expected: 12/08/2021 (Approximate), Expires: 06/06/2022 documented as of this encounter Visit Diagnoses Diagnosis Subclinical hyperthyroidism Thyrotoxicosis without mention of goiter or other cause, without mention of thyrotoxic crisis or storm documented in this encounter Care Teams Fbi Field Agent Relationship Specialty Start Date End Date Helen Lr APRN PCP - General Family Medicine 12/11/[address] [place] [address] documented as of this encounter
--- OUTSIDE RECORDS SUMMARY | 2022-05-31 02:15 | XMS_ITS | Encounter Summary ---
:1970 Author Organization [facility] [place] [address] Care Team Providers Name Role Phone Helen Lr TELEGRAPH OFFICE TELEPHONE CLERK Primary Care Provider Encounter Details Date Type Department Care Team Description 06/12/2019 Telephone Endocrinology at [facility] Ivy Wright, [place] [address] Social History Tobacco Use Types Packs/Day Years Used Date Current Every Day Smoker Cigarettes 1 Smokeless Tobacco: Never Used Sex Assigned at Date Recorded Not on file documented as of this encounter Miscellaneous Notes Telephone Encounter - Ivy Berkowitz RN - 06/18/2019 10:21 AM EDT Left detailed msg for pt on identified VM and faxing lab orders to [facility] for pt to complete. Telephone Encounter - Ivy Berkowitz RN - 06/12/2019 4:23 PM EDT Spoke to pt re need for radioactive iodine scan and she reports that she had one of these in Dec, ordered by Dr Luciano, at [facility], and that is what lead to the FNA last January. She is wondering ifshe needs to repeat? Telephone Encounter - Ivy Berkowitz RN - 06/12/2019 9:48 AM EDT Left msg asking pt to return call for thyroid lab update. Telephone Encounter - Ivy Berkowitz RN - 06/12/2019 9:45 AM EDT ----- Message from Satish Jaquez DO sent at 04/25/2019 2:56 PM EDT ----- Please inform Geni that she continues to have mild subclinical hyperthyroidism, likely due to 1 of the nodule secreting excess thyroid hormone. The next step would be to have a radio active iodine scan to confirm the diagnosis. I strongly prefer that this is done here at [facility]. I have placed the orders and she should be able to schedule this within the next 2 weeks. documented in this encounter Plan of Treatment Upcoming Encounters Date Type Specialty Care Team Description 06/21/2022 Office Visit Endocrinology Asa Castañeda MD [facility] [address] [place], [place] [address] (Wo rk) documented as of this encounter Visit Diagnoses Diagnosis Hyperthyroidism Thyrotoxicosis without mention of goiter or other cause, without mention of thyrotoxic crisis or storm documented in this encounter Care Teams Industrial Conveyor Belt Repairer Relationship Specialty Start Date End Date Helen Lr APRN PCP - General Family Medicine 12/11/[address] [facility] [address] [place] [address] documented as of this encounter
--- OUTSIDE RECORDS SUMMARY | 2022-05-31 02:15 | XMS_ITS | Encounter Summary ---
:1970 Author Organization [facility] [place] [address] Care Team Providers Name Role Phone Helen Lr APRN Primary Care Provider Encounter Details Date Type Department Care Team Description 12/11/2018 Notes Only Radiology at [facility] Sherman Simms MD [facility] [place] [address] DIAGNOSTIC RADIOLOGY [phone] [place], [place] [address] (Wo rk) Social History Tobacco Use Types Packs/Day Years Used Date Current Every Day Smoker Cigarettes 1 Smokeless Tobacco: Never Used Sex Assigned at Date Recorded Not on file documented as of this encounter Progress Notes Sherman Simms MD - 12/11/2018 3:38 PM EST Pre-procedure note for needle breast biopsies performed in radiology. Procedure date: Today Procedure type: right breast ultrasound guided biopsy Allergies: Wellbutrin [bupropion] Medications: Current Outpatient Medications: ??? fluticasone (FLONASE ALLERGY RELIEF) 50 mcg/actuation [place], Suspension, daily., Disp: , Rfl: ??? doxycycline (VIBRA-TABS) 100 mg Tablet, 100 mg daily., Disp: , Rfl: 0 ??? PROAIR HFA 90 mcg/actuation HFA Aerosol Inhaler, Inhale 2 puffs into the lungs every 6 hours as needed., Disp: , Rfl: 0 ??? hydroCHLOROthiazide (HYDRODIURIL) 25 mg Tablet, Take 25 mg by mouth daily., Disp: , Rfl: 0 ??? latanoprost (XALATAN) 0.005 % Drops, Place 1 drop into both eyes daily., Disp: , Rfl: 0 ??? pantoprazole (PROTONIX) 20 mg Tablet, Delayed Release (E.C.), Take 20 mg by mouth daily., Disp: , Rfl: 0 ??? potassium chloride SA (K-DUR;KLOR-CON) 10 mEq Tab Sust.Rel. Particle/Crystal, Take 10 mEq by mouth daily., Disp: , Rfl: 0 Anticoagulation status: none stopped on: N/A Imaging reviewed and procedural plan approved by Dr. SHERMAN SIMMS MD documented in this encounter Plan of Treatment Upcoming Encounters Date Type Specialty Care Team Description 06/21/2022 Office Visit Endocrinology Asa Castañeda MD [facility] [address] [place], [place] [address] (Wo rk) documented as of this encounter Visit Diagnoses Not on filedocumented in this encounter Care Teams Insole Beveler Relationship Specialty Start Date End Date Helen Lr APRN PCP - General Family Medicine 12/11/[address] [place] [address] documented as of this encounter
--- OUTSIDE RECORDS SUMMARY | 2022-05-31 02:15 | XMS_ITS | Encounter Summary ---
:1970 Author Organization [facility] [place] [address] Care Team Providers Name Role Phone Mehnaz Lubin APRN Primary Care Provider Encounter Details Date Type Department Care Team Description 11/21/2018 Ancillary Procedure Radiology Library at Bhargav Lubin, [facility] [address] [place] [address] [phone] (Wo rk) Social History Tobacco Use Types Packs/Day Years Used Date Current Every Day Smoker Cigarettes 1 Smokeless Tobacco: Never Used Sex Assigned at Date Recorded Not on file documented as of this encounter Plan of Treatment Upcoming Encounters Date Type Specialty Care Team Description 06/21/2022 Office Visit Endocrinology Asa Castañeda MD [place], [place] [address] (Wo rk) documented as of this encounter Procedures Procedure Name Priority Date/Time Associated Diagnosis Comme nts FILM Routine 11/21/2018 12:00 AM Results for this LIBRARY-STORAGE EST procedure ar e in ONLY US BREAST the results section. documented in this encounter Results Film Library Storage Only US Breast (11/21/2018 12:00 AM EST) Specimen (Source) Anatomical Location Collection Method / Collectio n Time Received Time / Laterality Volume Narrative RAD - 11/27/2018 9:18 AM EST This exam is for storage only and is aut o-finalizing. Mehnaz Lubin APRN IMG FILM LIBRARY ORDERABLES Performing Organization Address City/State/ZIP Code [facility] e Number DH RAD DH [place], [place] documented in this encounter Visit Diagnoses Not on filedocumented in this encounter Care Teams Professor Of Graphic Design Relationship Specialty Start Date End Date Mehnaz Lubin APRN PCP - General Family Medicine 11/11/17 12/10/18 documented as of this encounter
--- OUTSIDE RECORDS SUMMARY | 2022-05-31 02:15 | XMS_ITS | Encounter Summary ---
:1970 Author Organization [place] [address] Care Team Providers Name Role Phone Helen Lr APRN Primary Care Provider Encounter Details Date Type Department Care Team Description 06/19/2020 Telephone Endocrinology at [facility] Asa Jorgensen MD [facility] [place] [id number] [place] [address] [phone] (Wo rk) Social History Tobacco Use Types Packs/Day Years Used Date Current Every Day Smoker Cigarettes 0.5 Smokeless Tobacco: Never Used Sex Assigned at Date Recorded Not on file documented as of this encounter Miscellaneous Notes Telephone Encounter - Asa Castañeda MD - 06/19/2020 4:38 PM EDT I reviewed ultrasound images again today, and correlated with recent bloodwork which showed that TSHwas no lower suppressed but actually in low normal range. Patient does have one TIRADS right thyroid nodule that technically meets biopsy criteria (max 1.8 cm, smaller right hypoechoic nodule 1.46cm in max size), but it is unclear if that nodule in particularis hyperfunctional. It certainly had the appearance of hyperfunctionality on recent ultrasound (moderately increased bloodflow, significant colloid composition). I-123 scan showed low uptake in left lobe and some uptake in right lobe, although overall uptake within normal range, so difficult to tell from that study whether right nodules are hyperfunctional. I suggested that we reassess TFTs in about 6 months ( I will mail slips for local blood draw) if TSHremains within the normal range, will discuss with her presenting for biopsy of larger right thyroidnodule. She was in agreement with this plan. She informed me that her daughter just suddenly and unexpectedly, I offered my sympathies documented in this encounter Plan of Treatment Upcoming Encounters Date Type Specialty Care Team Description 06/21/2022 Office Visit Endocrinology Asa Castañeda MD [facility] [address] [place], [place] [address] (Wo rk) documented as of this encounter Visit Diagnoses Diagnosis Multiple thyroid nodules Nontoxic multinodular goiter documented in this encounter Care Teams Dental Aide Relationship Specialty Start Date End Date Helen Lr APRN PCP - General Family Medicine 12/11/[address] [place] [address] documented as of this encounter
--- OUTSIDE RECORDS SUMMARY | 2022-05-31 02:15 | XMS_ITS | Encounter Summary ---
:1970 [place] [address] Care Team Providers Name Role Phone Helen Lr APRN Primary Care Provider Encounter Details Date Type Department Care Team Description 03/13/2019 Office Visit Endocrinology at [facility] C Satish Donovan [place] [address] DR [phone] ENDOCRINOLOGY [place], [place] [address] (Wo rk) Social History Tobacco Use Types Packs/Day Years Used Date Current Every Day Smoker Cigarettes 1 Smokeless Tobacco: Never Used Sex Assigned at Date Recorded Not on file documented as of this encounter Last Filed Vital Signs Vital Sign Reading Time Taken Comments Blood Pressure 148/106 03/13/2019 10:41 AM EDT Pulse 96 03/13/2019 10:41 AM EDT Temperature - - Respiratory Rate - - Oxygen Saturation - - Inhaled Oxygen Concentration - - Weight 109.3 kg (241 lb) 03/13/2019 10:41 AM EDT Height 170.2 cm (5' 7) 03/13/2019 10:41 AM EDT Body Mass Index 37.75 03/13/2019 10:41 AM EDT documented in this encounter Progress Notes Satish Donovan DO - 03/13/2019 10:30 AM EDT Endocrinology Clinic Followup Note Patient: Geni Cage PCP: Helen Lr APRN Interval History: 48 year old woman with a history of thyroid nodules. She was evaluated here in 2018 at that time underwent a biopsy revealing a benign nodule. She reports that her thyroid blood test was last measured 5 months ago borderline hyper. Her past medical history is significant for anxiety. ROS: + wt gain perimneopause + night sweats She denies neck masses, dysphagia, hoarseness Past Medical History: No past medical history on file. Past Surgical History: Procedure Laterality Date ??? MAMMO US BIOPSY RIGHT Right 12/11/2018 Mammo Us Biopsy Right 12/11/2018 Ros García MD [facility] RAD MAMMOGRAPHY Medications: albuterol, doxycycline, fluticasone propionate, hydroCHLOROthiazide, latanoprost, pantoprazole, and potassium chloride SA Allergies: Allergies Allergen Reactions ??? Wellbutrin [Bupropion] Other (See Comments) Suicidal ideation No changes to FHx or SHx noted No family history on file. Social History Socioeconomic History ??? Marital status: Spouse name: Not on file ??? Number of children: Not on file ??? Years of education: Not on file ??? Highest education level: Not on file Occupational History ??? Not on file Social Needs ??? Financial resource strain: Not on file ??? Food insecurity: Worry: Not on file Inability: Not on file ??? Transportation needs: Medical: Not on file Non-medical: Not on file Tobacco Use ??? Smoking status: Current Every Day Smoker Packs/day: 1.00 Types: Cigarettes ??? Smokeless tobacco: Never Used Substance and Sexual Activity ??? Alcohol use: Not on file ??? Drug use: Not on file ??? Sexual activity: Not on file Lifestyle ??? Physical activity: Days per week: Not on file Minutes per session: Not on file ??? Stress: Not on file Relationships ??? Social connections: Talks on phone: Not on file Gets together: Not on file Attends denominational service: Not on file Active member of club or organization: Not on file Attends meetings of clubs or organizations: Not on file Relationship status: Not on file ??? Intimate partner violence: Fear of current or ex partner: Not on file Emotionally abused: Not on file Physically abused: Not on file Forced sexual activity: Not on file Other Topics Concern ??? Not on file Social History Narrative ??? Not on file Physical exam: BP (!) 148/106 Pulse 96 Ht 170.2 cm (5' 7) Wt 109.3 kg (241 lb) BMI 37.75 kg/m?? General: NAD. Nondiaphoretic. HEENT: Normocephalic/atraumatic. No proptosis. Oropharynx clear. Neck is supple. No lymphadenopathy.No thyromegaly or nodules appreciated. CV: regular rate/rhythm, no murmurs/rubs/gallops. Pulm: clear to auscultation bilaterally. Extremities: warm and well perfused, no edema Neuro/Mental Status: alert. Speech is fluent without dysarthria or aphasia. Diagnostic Tests/Imaging: Previous ultrasound in 2018: Right Lobe: The right lobe measures 4.6 cm x 2.6 cm x 2.8 cm with an echo-texture that is isoechoic. There are multiple thyroid nodules, the largest nodule is located in the mid upper pole that measures 1.5 cm x 1.1 cm x 1.2 cm, and has smooth borders, without intra-nodular calcifications and grade 2 Doppler flow seen. There is a large purely cystic nodule in the lower pole that measures 1.6cm x 2.2cm x 3.4 cm, smoothborders, no calcifications, and no vascularity. There are other thyroid nodules that are all otherwise sub-centimeter. ?? Left Lobe: The left lobe measures 4.7 cm x 1.7 cm x 2.1 cm with an echo-texture that is isoechoic. There are numerous small sub-centimeter nodules, some which are hypoechoic and some mixed cystic/solid. There is a mixed cystic solid isoechoic nodule in the lower pole laterally that measures 1.4 cm x 1.0 cm x1.1 cm, and has smooth borders, without intra-nodular calcifications, and with grade 2 Doppler flow seen. ?? Isthmus: The isthmus measures 0.14 cm in the AP dimension with an echo-texture that is isoechoic. Impression: Multiple thyroid nodules. 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 Recommendations: TSH today Repeat thyroid ultrasound at [facility] Satish Donovan DO, MS Child Nutrition Assistantsoaking pits supervisor Department of Medicine Section of Endocrinology [facility] documented in this encounter Miscellaneous Notes Addendum Note - Gayatri Mehta - 03/13/2019 10:30 AM EDT Addended by: GAYATRI MEHTA on: 03/13/2019 11:11 AM Modules accepted: Orders Addendum Note - Staish Donovan DO - 03/13/2019 10:30 AM EDT Addended by: SATISH DONOVAN on: 03/14/2019 10:40 AM Modules accepted: Orders documented in this encounter Plan of Treatment Upcoming Encounters Date Type Specialty Care Team Description 06/21/2022 Office Visit Endocrinology Asa Castañeda MD [facility] [address] [place], [place] [address] (Wo rk) documented as of this encounter Procedures Procedure Name Priority Date/Time Associated Diagnosis Comme nts TSH Routine 03/13/2019 11:27 AM Thyroid nodule Result s for this EDT procedure are i n the results section . documented in this encounter Results (ABNORMAL) TSH (03/13/2019 11:27 AM EDT) P athologist Signature TSH 0.07 (L) 0.27 - 4.[address] [facility] mcIU/mL [facility] Specimen Anatomical Collection Method Collection Time Receive d Time (Source) Location / / Volume Laterality Blood specimen 03/13/2019 11:27 9 (specimen) AM EDT 11:37 AM EDT Resulting Agency Comment Spec In Lab Satish Donovan DO CHEMISTRY ORDERABLES Performing Organization Address City/State/[place] [address] documented in this encounter Visit Diagnoses Diagnosis Thyroid nodule Nontoxic uninodular goiter documented in this encounter Care Teams Pca Relationship Specialty Start Date End Date Helen Lr APRN PCP - General Family Medicine 12/11/[address] [place] [address] documented as of this encounter
--- OUTSIDE RECORDS SUMMARY | 2022-05-31 02:15 | XMS_ITS | Encounter Summary ---
:1970 Author Organization [facility] [place] [address] Care Team Providers Name Role Phone Helen Lr DIRECTOR PRESALES Primary Care Provider Encounter Details Date Type Department Care Team Description 12/11/2018 Hospital Encounter Mammography at [facility] [place], Abnormal ultrasound [facility] Ros Neumann MD of breast [place], [place] CENTER [address] DIAGNOSTIC [phone] [place] [address] Social History Tobacco Use Types Packs/Day Years Used Date Current Every Day Smoker Cigarettes 1 Smokeless Tobacco: Never Used Sex Assigned at Date Recorded Not on file documented as of this encounter Medications at Time of Discharge Medication Sig Dispensed Refills Start Date End Date fluticasone (FLONASE ALLERGY daily. 0 RELIEF) 50 mcg/actuation [place], Suspension doxycycline (VIBRA-TABS) 100 100 mg daily. 0 0312/2017 mg Tablet PROAIR HFA 90 mcg/actuation Inhale [...] Visit Endocrinology Asa Castañeda MD [facility] er [place], [place] [address] (Wo rk) documented as of this encounter Procedures Procedure Name Priority Date/Time Associated Comments Diagnosis MAMMO DIAGNOSTIC Routine 12/11/2018 4:23 PM Abnormal ultrasoun d Results for this WITHOUT CAD RIGHT EST of breast procedure are in the results section. SURGICAL PATHOLOGY Routine 12/11/2018 3:58 PM Res ults for this REPORT EST procedure are i n the results section. documented in this encounter Results Mammo Diagnostic Without Cad Right (12/11/2018 4:23 PM EST) Anatomical Region Laterality Modality Breast Right Mammography Specimen (Source) Anatomical Location Collection Method / Collectio n Time Received Time / Laterality Volume Impressions 12/14/2018 12:56 PM EST Benign result with incidental high risk finding. RECOMMENDATION: Referral for high risk a ssessment with the nurse practitioner. I discussed these results and recommendati ons with the patient on 12/14/2018. REVIEW PATH CONFERENCE?: No Thank you for letting us participate in the care of this patient. For questions regarding this report, please contact e number below. ? Narrative 12/14/2018 12:56 PM EST RIGHT BREAST ULTRASOUND GUIDED AUTOMATED CORE BIOPSY CLINICAL HISTORY: abnormal ultrasound. R ight breast mass 1:00 radian 4 cm from the nipple measuring 2 cm PROCEDURAL DETAILS: Informed consent was obtained and a time out procedure was performed per protocol. Using local anesthetic (less t whyte 5 cc of 1% lidocaine), sterile technique, and ultrasound guidance the l esion in the right breast was localized and sampled. Multiple satisfactory core biopsy specim ens were obtained using a 14-gauge automated device. A [employer] [place] 14G marker clip was mikey erika. The clip was in satisfactory position both sonographically and at fol low-up cranio-caudal and true lateral digital mammography. COMPLICATIONS: None. PROCEDURAL ATTESTATION: Resident: None I performed the procedure without a resi dent. IMAGING DIFFERENTIAL DIAGNOSIS: Invasive carcinoma, fat necrosis, fibroa denoma PATHOLOGIC DIAGNOSIS: Stromal fibrosis, adenosis, apocrine met aplasia. Incidental atypical lobular hyperplasia. Ros García MD IMG MAMMO ORDERABLES Surgical Pathology Report (12/11/2018 3:58 PM EST) Component Value Ref Test Analysis Performed At [facility] Method Time Signature Surgical [id number] ? Location: [address] [place] [address] The signing pathologist has (i) examined the relevant preparation(s) for the [facility] specimen(s) and (ii) rendered or confirmed the diagnosis(es) . [facility] . ?Surgic al Pathology DIAGNOSIS Needle biopsies: ?Right breast Diagnosis: ?- Focal, incidental atypic al lobular hyperplasia ?- Stromal fibrosis, adenosis, and apocrine metaplasia Microcalcifications: ??Associated with adenosis Electronically signed by: ??Ramiro Jean MD Verified: ??12/13/2018 ?Pathologist Performed at: ??-[facility] Dept. of Pathology, [place], [place] ADDITIONAL STUDIES Immunohistochemistry Studies: Formalin-fixed, paraffin-emb edded tissue sections are studied using the polymer technique with appropriate positive and negative controls. ?These IHC studies provide the pathologist wit h adjunctive diagnostic information. Antibody specificity has been verified by testin g antibodies on a series of in-house tissues with known immunohistochemical perform ance characteristics. The clinical interpretation of any antibody positive stain ing or its absence is evaluated within the context of clinical presentation, morp hology, histopathological criteria and other diagnostic tests. Block ? Antibody ?Result (Positive /Negative) A1 ? E-cadherin ? Negative in focal A LH CLINICAL INFORMATION Specimen Submitted: A - Right breast u/s bx Clinical History and Diagnosis: Right breast mass. IDC, fat necrosis, FA Report to: Helen Lr SPECIMEN PROCESSING A - Labeled/Fixative: Right breast BX, formalin. Quantity/Size: Three, ranging from 1.2 x 0.1 cm to 2.1 x 0.1 cm. Tissue Description: Yellow-appiah needle core biopsies. Sections/Processing: Entirely submitted in 1 cassette labele d A1. Ischemic Time: Less than one minute ??pps Specimen (Source) Anatomical Collection Method Collection Time Re ceived Time Location / / Volume Laterality 12/11/2018 3:58 PM EST Ros García MD PATHOLOGY/CYTOLOGY ORDERABLE S Performing Organization Address City/State/[place] [address] documented in this encounter Visit Diagnoses Diagnosis Abnormal ultrasound of breast Other (abnormal) findings on radiologica l examination of breast documented in this encounter Care Teams Customer Service And Sales Consultant Relationship Specialty Start Date End Date Helen Lr APRN PCP - General Family Medicine 12/11/[address] [place] [address] [address] [facility] [address] [place] [address] documented as of this encounter
--- OUTSIDE RECORDS SUMMARY | 2022-05-31 02:15 | XMS_ITS | Encounter Summary ---
:1970 Author Organization [facility] [place] [address] Care Team Providers Name Role Phone Helen Lr CRIME SPECIALIST Primary Care Provider Reason for Referral Consultation (Urgent) - Closed Specialty Diagnoses / Procedures Referred By Contact Refer red To Contact Endocrinology Diagnoses Thyrotoxicosis without thyroid storm, unspecified thyrotoxicosis type Helen Lr APRN Crawford, Andrew R, [address] [place] [address] [facility] [address] [place] [address] [place] [id number] Fax: Referral ID Status Reason Start Date Expiration Date Visits V isits Requested Authorized [id number] Closed Consult, 02/22/2022 02/22/2023 6 6 Test & Treat Encounter Details Date Type Department Care Team Description 02/22/2022 Transcribe Orders eDH Incoming Helen Lr, Thyro toxicosis Referrals CRIME SPECIALIST without thyroid [phone] [address] [place] [address] [place] [address] Social History Tobacco Use Types Packs/Day Years Used Date Current Every Day Smoker Cigarettes 0.5 Smokeless Tobacco: Never Used Sex Assigned at Date Recorded Not on file documented as of this encounter Plan of Treatment Upcoming Encounters Date Type Specialty Care Team Description 06/21/2022 Office Visit Endocrinology Asa Castañeda MD [facility] [place], [place] [address] (Wo rk) Scheduled Referrals Name Type Priority Associated Diagnoses Order S chedule Referral to Outpatient Routine Thyrotoxicosis without Order ed: Endocrinology Referral thyroid storm, 02/22/2022 unspecified thyrotoxicosis type documented as of this encounter Visit Diagnoses Diagnosis Thyrotoxicosis without thyroid storm, un specified thyrotoxicosis type documented in this encounter Care Teams Slabbing Machine Operator Relationship Specialty Start Date End Date Helen Lr APRN PCP - General Family Medicine 12/11/18 [address] [place] [address] [place] [address] documented as of this encounter
--- OUTSIDE RECORDS SUMMARY | 2022-05-31 02:15 | XMS_ITS | Encounter Summary ---
:1970 Author Organization [facility] [place] [address] Care Team Providers Name Role Phone Mehnaz Lubin APRN Primary Care Provider Encounter Details Date Type Department Care Team Description 01/23/2018 Telephone Endocrinology at [facility] C Shae Luciano MD [facility] [place] [address] ENDOCRINOLOGY DEPT [phone] [place] [address] (Wo rk) Social History Tobacco Use Types Packs/Day Years Used Date Current Every Day Smoker Cigarettes 1 Smokeless Tobacco: Never Used Sex Assigned at Date Recorded Not on file documented as of this encounter Miscellaneous Notes Telephone Encounter - Shae Luciano MD - 01/23/2018 8:58 AM EDT Called patient back to add her on to schedule on Tuesday at 10:00am for nodule FNA. She verbalized understanding. documented in this encounter Plan of Treatment Upcoming Encounters Date Type Specialty Care Team Description 06/21/2022 Office Visit Endocrinology Asa Castañeda MD [facility] [place] [address] [place] [address] (Wo rk) documented as of this encounter Visit Diagnoses Not on filedocumented in this encounter Care Teams Land Law Examiner Relationship Specialty Start Date End Date Mehnaz Lubin APRN PCP - General Family Medicine 11/11/17 12/10/18 documented as of this encounter
--- OUTSIDE RECORDS SUMMARY | 2022-05-31 02:15 | XMS_ITS | Encounter Summary ---
:1970 Author Organization [facility] [place] [address] Care Team Providers Name Role Phone Mehnaz Lubin MAGO Primary Care Provider Encounter Details Date Type Department Care Team Description 01/02/2018 [facility] [place] [address] [place] [address] [phone] (Wo rk) Social History Tobacco Use Types Packs/Day Years Used Date Current Every Day Smoker Cigarettes 1 Smokeless Tobacco: Never Used Sex Assigned at Date Recorded Not on file documented as of this encounter Medications at Time of Discharge Medication Sig Dispensed Refills Start Date End Date PROAIR HFA 90 mcg/actuation Inhale 2 puffs 0 06/15 HFA Aerosol Inhaler into the lungs every 6 hours as needed. hydroCHLOROthiazide Take 25 mg by 0 10/25/2017 (HYDRODIURIL) 25 mg Tablet mouth daily. latanoprost (XALATAN) 0.005 % Place 1 drop 0 09/15 Drops into both eyes daily. pantoprazole (PROTONIX) 20 mg Take 20 mg by 0 Tablet, Delayed Release mouth daily. (E.C.) potassium chloride SA Take 10 mEq by 0 11/01/2017 (K-DUR;KLOR-CON) 10 mEq Tab mouth daily. Sust.Rel. Particle/Crystal hydrOXYzine (VISTARIL) 50 mg Take 1 capsule 0 01/27/2018 Capsule by mouth 2 times daily as needed. documented as of this encounter Plan of Treatment Upcoming Encounters Date Type Specialty Care Team Description 06/21/2022 Office Visit Endocrinology Asa Castañeda MD [facility] er [place] [address] (Wo rk) documented as of this encounter Procedures Procedure Name Priority Date/Time Associated Diagnosis Comme nts FILM LIBRARY Routine 01/02/2018 12:00 AM Results for this STORAGE ONLY EST procedure are i n NUCLEAR MEDICINE the results section. documented in this encounter Results Film Library- Storage Only nuclear medicine (01/02/2018 12:00 AM EST) Specimen (Source) Anatomical Location Collection Method / Collectio n Time Received Time / Laterality Volume Narrative ROMA - 01/03/2018 6:33 PM EST This result has an attachment that is no t available. This exam is for storage only and is aut o-finalizing. Satish Jaquez DO [employer] FILM LIBRARY ORDERABLES Performing Organization Address City/State/ZIP Code Phon e Number [facility] [place] documented in this encounter Visit Diagnoses Not on filedocumented in this encounter Care Teams Wedding Makeup Artist Relationship Specialty Start Date End Date Mehnaz Lubin APRN PCP - General Family Medicine 11/11/17 12/10/18 documented as of this encounter
--- OUTSIDE RECORDS SUMMARY | 2022-05-31 02:15 | XMS_ITS | Encounter Summary ---
:1970 Author Organization [facility] [address] Care Team Providers Name Role Phone Mehnaz Lubin APRN Primary Care Provider Encounter Details Date Type Department Care Team Description 11/22/2017 Telephone Endocrinology at [facility] [place] [address] Social History Tobacco Use Types Packs/Day Years Used Date Current Every Day Smoker Cigarettes 1 Smokeless Tobacco: Never Used Sex Assigned at Date Recorded Not on file documented as of this encounter Miscellaneous Notes Telephone Encounter - Aleida Perez LPN - 11/28/2017 8:32 AM EST Images from the original note were not included. Geni Cage?? Female, 46 y.o., 1970 Weight: 109 kg (240 lb 4.8 oz) Home: PCP: Mehnaz Lubin APRN myD-H: Pending Next Appt: None ?? Message Received: 2 days ago ? Socorro Romero Endocrinology Nurse ? Caller: Unspecified (6 days ago, ??3:15 PM) ? faxed ? Previous Messages Telephone Encounter - Aleida Perez LPN - 11/23/2017 3:12 PM EST R/c to patient at which time message from Dr Luciano was read to her. Patient agrees with plan of care and states Dr luciano had already told her about low iodine diet and staying on diet until it is determined if therapy is needed. Forward to corporation secretary to fax order for nuclear scan to [facility]. Telephone Encounter - Aleida Perez LPN - 11/23/2017 8:29 AM EST Images from the original note were not included. Geni Cage R?? Female, 46 y.o., 1970 Weight: 109 kg (240 lb 4.8 oz) Home: PCP: Mehnaz Lubin APRN myD-H: Pending Next Appt: None ?? Message Received: Yesterday ? Shae Luciano MD Isham, Gail, LPN ? Caller: Unspecified (Yesterday, ??3:15 PM) ? Yes that is fine, please make sure she stays on low iodine diet even after she undergoes scan andshe will need to let us know after she gets scan done so that we can track down results and send herin for therapy if needed also. Thank you! Shae Called patient. No answer. Message left on home v/m for patient to r/c to nurse at which time above will be read to her. Telephone Encounter - Aleida Perez LPN - 11/22/2017 3:15 PM EST R/c to patient who states she is to have nuclear scan. PCP has told her that it can be done at [facility]. Patient is asking if this okay with Dr Luciano. documented in this encounter Plan of Treatment Upcoming Encounters Date Type Specialty Care Team Description 06/21/2022 Office Visit Endocrinology Asa Castañeda MD [facility] [address] [place], [place] [address] (Wo rk) documented as of this encounter Visit Diagnoses Not on filedocumented in this encounter Care Teams Charcoal Kiln Burner Relationship Specialty Start Date End Date Mehnaz Lubin APRN PCP - General Family Medicine 11/11/17 12/10/18 documented as of this encounter
--- OUTSIDE RECORDS SUMMARY | 2022-05-31 02:15 | XMS_ITS | Encounter Summary ---
:1970 Author Organization [facility] [place] [address] Care Team Providers Name Role Phone Helen Lr APRN Primary Care Provider Reason for Visit Diagnostic Test (Routine) - Closed Specialty Diagnoses / Procedures Referred By Contact Refer red To Contact Radiology Diagnoses Pulmonary nodule Helen Lr APRN [facility] Rad Nuclear Med Procedures NM PET CT Skull Base to Mid-thigh [address] [place] [address] Phone: Fax: Referral ID Status Reason Start Date Expiration Date Visits V isits Requested Authorized [id number] Closed Specialty 10/23/2020 1 1 Service Requested Encounter Details Date Type Department Care Team Description 10/23/2020 Hospital Encounter Nuclear Medicine [facility] [address] [address] [place] [address] [phone] (Wo rk) Social History Tobacco Use Types [...] (FLONASE ALLERGY daily. 0 RELIEF) 50 mcg/actuation [place], Suspension doxycycline (VIBRA-TABS) 100 100 mg daily. 0 12/2017 mg Tablet PROAIR HFA 90 mcg/actuation Inhale [...] 06/21/2022 Office Visit Endocrinology Asa Castañeda MD [facility] [address] [place] [address] (Wo rk) documented as of this encounter Procedures Procedure Name Priority Date/Time Associated Diagnosis Comme nts NM PET CT SKULL Routine 10/23/2020 10:18 AM Pulmonary nodule R esults for this BASE TO MID-THIGH EST procedure are in ([facility]) the results section. POCT GLUCOSE Routine 10/23/2020 7:46 AM Results f or this EST procedure are i n the results section. documented in this encounter Results POCT Glucose (10/23/2020 7:46 AM EST) athologist Signature POC Glucose 91 65 - [address] [facility] mg/dL [facility] Comment: Supplemental ranges: <140 mg/dL before meals <180 mg/dL all other times of the day Specimen Anatomical Collection Method Collection Time Receive d Time (Source) Location / / Volume Laterality Blood specimen 10/23/2020 7:46 AM 020 7:46 (specimen) EST AM EST Helen Adjovu SIGN LANGUAGE TRANSLATOR POINT OF CARE TEST ORDERABLE S Performing Organization Address City/State/[place] [address] documented in this encounter Visit Diagnoses Not on filedocumented in this encounter Care Teams Legal Executive Assistant Relationship Specialty Start Date End Date Helen Lr APRN PCP - General Family Medicine 12/11/18 [address] [facility] [place] [address] documented as of this encounter
--- OUTSIDE RECORDS SUMMARY | 2022-05-31 02:15 | XMS_ITS | Encounter Summary ---
:1970 Author Organization [facility] Address [facility] [place] [address] Care Team Providers Name Role Phone Helen Lr APRN Primary Care Provider Reason for Visit Consultation (Routine) - Closed Specialty Diagnoses / Procedures Referred By Contact Refer red To Contact Surgical Oncology / Diagnoses Atypical lobular hyperplasia (ALH) of breast ALH F/U PER RADS Helen Lr McCabe, Elizabeth B, General Surgery Procedures NEW PATIENT BRIEF SLAG SKIMMER SLAG SKIMMER [address] [facility] [address] [place], [place] [address] 1 [place] [address] Phone: Fax: Referral ID Status Reason Start Date Expiration Date Visits Requ ested Visits Authorized [id number] Closed 12/26/2018 12/26/2019 1 1 Encounter Details Date Type Department Care Team Description 12/26/2018 Office Visit General Surgery at [facility] cancer screening, high risk patient; [facility] B, SLAG SKIMMER Atypical lobular hyperplasia (ALH) of ri t breast [facility] [address] [place] [facility] [address] [place] [address] [phone] (Wo rk) Social History Tobacco Use Types Packs/Day Years Used Date Current Every Day Smoker Cigarettes 1 Smokeless Tobacco: Never Used Sex Assigned at Date Recorded Not on file documented as of this encounter Progress Notes Malathi Valverde APRN - 12/26/2018 10:45 AM EST Ms. Cage is a 48 y.o. year-old patient who I am seeing at the request of radiology to discussbreast cancer risks and recommendations for surveillance in light of a recent breast biopsy which showed focal ALH. By way of history she underwent call back imaging after having her first mammogram. This resulted velia subsequent biopsy of a complex mass in her upper inner right breast. Biopsy on (12/11/18). Needle biopsies: ?Right breast Diagnosis: ?- Focal, incidental atypical lobular hyperplasia ? - Stromal fibrosis, adenosis, and apocrine metaplasia She denies any skin changes, new breast masses, breast trauma, prior breast surgery or nipple discharge. She does not have a history of cystic breast tissue and has not had cysts aspirated or breast biopsies in the past. She does occasional self-breast exams. Weight stable. She has no new or concerning complaints of fatigue, cardiovascular or respiratory symptoms. All other ROS are negative. Reproductive History: P3 , had her first child at the age of 19 and did not nurse her children. Menarche began at 12.Her LMP was in October/dante menopausal. HRT/OC: none Family History: Negative for ovarian cancer. 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 She does smoke. Past Medical History: Thyroid nodules/hyperthyroid Past Surgical History: Noncontributory Physical Exam: She looks well and is in no apparent distress. Her skin is anicteric with good turgor. Sclera are anicteric. Her head and neck are without masses or adenopathy. Her arms have good ROM without any evidence of lymphedema. Breasts are large and symmetric. Her nipples are everted. There is no axillary adenopathy on the right or the left. There are no skin changes or dimpling noted in either breast. The right breast is notable for generally homogenous breast tissue,without discrete masses.Medial/dante areolar bruising. Her left breast exam is similar in character to her right breast,without discrete masses. Assessment: Clinical breast exam notable for fibrocystic breast tissue without discrete masses. History of focal ALH after biopsy imparts increased risk for developing breast cancer ( 15 per year). Plan: I have discussed my assessment and recommendations with Ms. Cage to include occasional self-breast exams and semi clinical breast exams. I discussed the significance of a diagnosis of ADH or ALH. This is a marker for an increased risk of developing a non invasive or invasive breast cancer,but itis not a cancer itself. With a diagnosis of ADH, ALH or lobular carcinoma in situ, she has about a 1% per year risk of developing breast cancer, and if she has a life expectancy of 25 years, she has a 25% lifetime risk of developing breast cancer. For women who have had a core biopsy in radiology showing focal ALH and the biopsy was concordant with imaging,the current recommendations are for no further surgery. I do recommend that these women do undergo annual CBE and annual 3D mammography, as having a biopsy which shows ALH does impart an increased risk of developing breast cancer of 1% per year. ALH is considered more of a borderline risk lesion with a slow rate of progression when compared to ADH. Surgical excision is recommended when ADH is found on core biopsy. I then discussed nonpharmacologic measures that she can take to decrease her risk of developing breast cancer, to include the following: Avoidance of weight gain, increase exercise, etoh and fat intake in moderation and smoking cessation. We discussed chemo prevention as a strategy to reduce her risks. I have offered to refer her to medical oncology. She will consider this and let me know. We discussed MRI in addition to mammography. At this point MRI is not considered essential for screening. There is a high false positive rate with MRI and evidence to date showed a benefit. Based on her risk status,her next bilateral screening mammogram is due on 11/2019 or sooner if indicated. She is inclined to have her mammogram at and would like her PCP to perform her CBE in the future.She agrees to call me if she has any questions, breast concerns or would like a medical oncology referral Ms. Cage agrees to this plan. Helen Lr APRN documented in this encounter Plan of Treatment Upcoming Encounters Date Type Specialty Care Team Description 06/21/2022 Office Visit Endocrinology Asa Castañeda MD [facility] [address] [place], [place] [address] (Wo rk) documented as of this encounter Visit Diagnoses Diagnosis Breast cancer screening, high risk patie nt Screening mammogram for high-risk patien t Atypical lobular hyperplasia (ALH) of ri ght breast documented in this encounter Care Teams Client Service Representative Relationship Specialty Start Date End Date Helen Lr APRN PCP - General Family Medicine 12/11/18 [address] [facility] [address] [facility] 1 [place] [address] documented as of this encounter
--- OUTSIDE RECORDS SUMMARY | 2022-05-31 02:15 | XMS_ITS | Encounter Summary ---
:1970 Author Organization [facility] [place] [address] Care Team Providers Name Role Phone Helen Lr APRN Primary Care Provider Encounter Details Date Type Department Care Team Description 06/05/2020 Office Visit Endocrinology at [facility] Asa Jorgensen Hyperthyroidism; [facility] MD Brittanie [place] [address] [place] [address] [place] [address] Social History Tobacco Use Types Packs/Day Years Used Date Current Every Day Smoker Cigarettes 0.5 Smokeless Tobacco: Never Used Sex Assigned at Date Recorded Not on file documented as of this encounter Last Filed Vital Signs Vital Sign Reading Time Taken Comments Blood Pressure 147/96 06/05/2020 1:31 PM EDT Pulse 92 06/05/2020 1:31 PM EDT Temperature 36.6 ??C (97.9 ??F) 06/05/2020 1:31 PM EDT Respiratory Rate - - Oxygen Saturation 99% 06/05/2020 1:31 PM EDT Inhaled Oxygen Concentration - - Weight 105.8 kg (233 lb 4.8 oz) 06/05/2020 1:31 PM EDT Height 170.2 cm (5' 7) 06/05/2020 1:31 PM EDT Body Mass Index 36.54 06/05/2020 1:31 PM EDT documented in this encounter Progress Notes Asa Castañeda MD - 06/05/2020 1:30 PM EDT Ms. Geni Cage is an 49 y.o. female who presents for ongoing care of thyroid nodules Patient Active Problem List Diagnosis ??? Multiple thyroid nodules ??? Subclinical hyperthyroidism Former patient of Dr Jaquez. -2018: TSH 0.16L. I-123 scan ([place]) photopenic area in the inferior aspect of left lobe, 24 hr uptake 24% (normal). FNA of left 1.4 cm x 1.0 cm??x1.1 cm mixed nodule: benign Her TSH has intermittently been suppressed since that time. Her last TSH check has not been since she last saw Dr Jaquez in this clinic in 2019 Interval history: Since she was last seen in our clinic, she generally feels well. She denies difficulty swallowing orthroat pain. She is having some hot flashes but believes that this is related to menopause. Denies tremors or palpitations. She does not take any biotin Current Outpatient Medications: ??? fluticasone (FLONASE ALLERGY RELIEF) 50 mcg/actuation [place], Suspension, daily., Disp: , Rfl: ??? doxycycline [...] by mouth daily., Disp: , Rfl: 0 has no past medical history on file. Physical Exam: Patient Vitals for the past 24 hrs: Temp Pulse BP SpO2 06/05/20 1331 36.6 ??C (97.9 ??F) 92 (!) 147/96 99 % well tolerated General: no acute distress, pleasant, sitting comfortably Face: not round or red Eyes: no lid lag; normal eye movements Nose: not enlarged Mouth: Mucous membranes moist Neck: no supraclavicular fat pads; trachea midline, thyroid is firm but no discrete nodules are palpated Respiratory: symmetrical chest expansion, breathing comfortably on room air Musculoskeletal: Moving all 4 extremities normally; normal female musculature Skin: normal temperature/texture Neurological: no tremors; normal gait Psychological: alert/oriented to person, place, time; normal affect; memory intact; normal judgement/insight DATA: Component Latest Ref Rng & Units 06/05/2020 03/13/2019 01/27/2018 T3, Total 75 - 170 ng/dL 147 164 Free T4 0.93 - 1.70 ng/dL 0.98 1.04 TSH 0.27 - 4.20 mcIU/mL 0.39 0.07 (L) 0.81 TSI <=0.55 IU/L <0.10 2017 thyroid US: Right Lobe: The right lobe measures??4.6 cm x 2.6 cm x 2.8 cm??with an echo-texture that is isoechoic.?? There are multiple thyroid nodules, the largest nodule is located in the mid upper pole that measures ??1.5 cm x 1.1 cm x 1.2 cm, and has smooth borders, without intra-nodular calcifications and grade 2 Doppler flow seen. There is a large purely cystic nodule in the lower pole that measures 1.6cm x 2.2cm x 3.4 cm, smoothborders, no calcifications, and no vascularity.?? There??are other thyroid nodules that are all otherwise sub-centimeter.? Left Lobe: The left lobe measures??4.7 cm x 1.7 cm x 2.1 cm??with an echo-texture that is isoechoic.?? There are numerous small sub-centimeter nodules, some which are hypoechoic and some mixed cystic/solid. There is a??mixed cystic solid isoechoic??nodule in the lower pole laterally??that measures 1.4 cm x1.0 cm??x1.1 cm, and has??smooth??borders, without??intra-nodular calcifications, and with grade 2??Doppler flow seen. ? Isthmus: The isthmus measures??0.14??cm in the AP dimension with an echo-texture that is isoechoic. ?? Bedside ultrasound result today: I performed a brief bedside ultrasound today. There were bilateral thyroid nodules. In the right lobe, there were several solid hypoechoic nodules that were mildly hypervascular and had several punctate echogenic foci with deep comet tail artifact. In this complex, nodule 1 measures [id number], TIRADS 4. Nodule 2 measures [id number], TIRADS 4. This nodule complex likely corresponds to the area of uptake seen on prior I-123 scan. There is a large cyst in the inferior pole of the thyroid with stable appearance vs 2018, it measures [id number]. In the left lobe, there were several tiny nodules that appeared to be spongiform/mixed cystic solid and a larger mixed cystic/solid nodule (previously biopsied nodule) that is stable/slightly larger than last ultrasound but is largely cystic in terms of content and appears to be degenerating. This nodule is AIDA low-very low suspicion [id number] in size Assessment / Plan: 1) History of Subclinical hyperthyroidism: Today her TSH is within the low normal range, I have suspicion that she has mildly hyperfunctional right thyroid nodule cluster based on the overall increased uptake on the previous I-123 scan with themajority of the signal from the right lobe, along with the mildly hypervascular quality of these nodules Recheck TFTs in one year 2) Thyroid nodules: We discussed the fact that her larger previously biopsied left thyroid nodule is slightly larger than when biopsied previously but appears to be degenerating given that much of it is cystic. Per AIDA guidelines, observation alone at this point is reasonable given that this low-very low suspicion nodulehas not developed any suspicious features. The right complex of nodules is likely mildly hyperfunctional, but given that TSH is normal they canbe evaluated by TIRADS criteria. Since she has no compressive symptoms, no intervention on the nodules is needed at this time BP was elevated today, as it was in February 2019 (148/106 then). Will defer to PCP to monitor patient and determine if further intervention is warranted for these mild elevations Other than the ultrasound I spent 20 minutes face to face with the patient, 15 of which was spent counseling about the issues described above RTC in one year with US Asa Castañeda MD Form Setter Helpersenior sales assistant Endocrinology Section [facility] documented in this encounter Plan of Treatment Upcoming Encounters Date Type Specialty Care Team Description 06/21/2022 Office Visit Endocrinology Asa Castañeda MD [facility] [place] [id number] (Wo rk) documented as of this encounter Procedures Procedure Name Priority Date/Time Associated Diagnosis Comme nts GOLD TUBE HOLD Routine 06/05/2020 2:45 Hyperthyroidism Results for this PM EDT procedure are i n the results section. HC VENIPUNCTURE Routine 06/05/2020 2:45 Hyperthyroidism Result s for this PM EDT procedure are i n the results section. HC THYROID Routine 06/05/2020 2:45 Hyperthyroidism Results f or this STIMULATING HORMONE, PM EDT procedu re are in SERUM the results section. HC FREE THYROXINE Routine 06/05/2020 2:45 Hyperthyroidism Resu lts for this (T4) PM EDT procedure are i n the results section. documented in this encounter Results Gold Tube HOLD (06/05/2020 2:45 PM EDT) P athologist Signature [facility] Specimen Anatomical Collection Method Collection Time Receive d Time (Source) Location / / Volume Laterality Blood specimen 06/05/2020 2:45 PM 020 2:58 (specimen) EDT PM EDT Asa Castañeda MD CHEMISTRY ORDERABLES Performing Organization Address City/State/[place] [address] T3 Total (06/05/2020 2:45 PM EDT) P athologist Signature T3, Total 147 75 - 170 [facility] Specimen Anatomical Collection Method Collection Time Receive d Time (Source) Location / / Volume Laterality Blood specimen 06/05/2020 2:45 PM 020 2:58 (specimen) EDT PM EDT Resulting Agency Comment Spec In Lab Asa Castañeda MD CHEMISTRY ORDERABLES Performing Organization Address City/[facility]/[place] [address] T4, free (06/05/2020 2:45 PM EDT) P athologist Signature Free T4 0.98 0.93 - 1.70 YOGESH CROWDER ng/dL [facility] Specimen Anatomical Collection Method Collection Time Receive d Time (Source) Location / / Volume Laterality Blood specimen 06/05/2020 2:45 PM 020 2:58 (specimen) EDT PM EDT Resulting Agency Comment Spec In Lab Asa Castañeda MD CHEMISTRY ORDERABLES Performing Organization Address City/State/ZIP Code Phon e Number [address] TSH (06/05/2020 2:45 PM EDT) P athologist Signature TSH 0.39 0.27 - 4.20 YOGESH CROWDER mcIU/mL [facility] Specimen Anatomical Collection Method Collection Time Receive d Time (Source) Location / / Volume Laterality Blood specimen 06/05/2020 2:45 PM 020 2:58 (specimen) EDT PM EDT Resulting Agency Comment Spec In Lab Asa Castañeda MD CHEMISTRY ORDERABLES Performing Organization Address City/State/[place] [address] documented in this encounter Visit Diagnoses Diagnosis Hyperthyroidism Thyrotoxicosis without mention of goiter or other cause, without mention of thyrotoxic crisis or storm Multiple thyroid nodules Nontoxic multinodular goiter documented in this encounter Care Teams Dean Of Students Relationship Specialty Start Date End Date Helen Lr APRN PCP - General Family Medicine 12/11/[address] [place] [address] [address] [place] [address] documented as of this encounter
--- OUTSIDE RECORDS SUMMARY | 2022-05-31 02:15 | XMS_ITS | Encounter Summary ---
:1970 Author Organization [facility] [place] [address] Care Team Providers Name Role Phone Adeline Helen MERCEDES Primary Care Provider Encounter Details Date Type Department Care Team Description 04/25/2019 Orders Only Endocrinology at [facility] Satish Jaquez [place] [address] ENDOCRINOLOGY DE [place], [place] [address] Social History Tobacco Use Types Packs/Day Years Used Date Current Every Day Smoker Cigarettes 1 Smokeless Tobacco: Never Used Sex Assigned at Date Recorded Not on file documented as of this encounter Plan of Treatment Upcoming Encounters Date Type Specialty Care Team Description 06/21/2022 Office Visit Endocrinology Asa Castañeda MD [place], [place] [address] (Wo rk) documented as of this encounter Visit Diagnoses Diagnosis Multinodular goiter Nontoxic multinodular goiter documented in this encounter Care Teams Dental Mold Maker Relationship Specialty Start Date End Date Helen Lr APRN PCP - General Family Medicine 12/11/[address] [place] [address] documented as of this encounter
--- OUTSIDE RECORDS SUMMARY | 2022-05-31 02:15 | XMS_ITS | Encounter Summary ---
:1970 Author Organization [facility] [place] [address] Care Team Providers Name Role Phone Helen Lr APRN Primary Care Provider Encounter Details Date Type Department Care Team Description 03/13/2019 Notes Only Endocrinology at [facility] Ivy Wright, [place] [address] Social History Tobacco Use Types Packs/Day Years Used Date Current Every Day Smoker Cigarettes 1 Smokeless Tobacco: Never Used Sex Assigned at Date Recorded Not on file documented as of this encounter Progress Notes Ivy Berkowitz, RN - 03/13/2019 11:08 AM EDT Routed US Thyroid Soft Tissue order to [facility] radiology via eDH. documented in this encounter Plan of Treatment Upcoming Encounters Date Type Specialty Care Team Description 06/21/2022 Office Visit Endocrinology Asa Castañeda MD [facility] [place], [place] [address] (Wo rk) documented as of this encounter Visit Diagnoses Not on filedocumented in this encounter Care Teams Certifed Refrigeration Operator Relationship Specialty Start Date End Date Helen Lr APRN PCP - General Family Medicine 12/11/[address] [place] [address] documented as of this encounter
--- OUTSIDE RECORDS SUMMARY | 2022-05-31 02:15 | XMS_ITS | Clinical Summary ---
:1970 Author Organization [facility] [place] [address] Care Team Providers Name Role Phone Helen Lr MAGO Primary Care Provider Allergies Active Allergy Reactions Severity Noted Date Comments Bupropion Other (See Comments) High 11/11/2017 Suicida l ideation Medications Medication Sig Dispensed Refills Start Date End Date Status PROAIR HFA 90 mcg/actuation Inhale 2 0 07/05/2017 Active HFA Aerosol Inhaler puffs into the lungs every 6 hours as needed. hydroCHLOROthiazide Take 25 mg by 0 10/25/2017 Active (HYDRODIURIL) 25 mg Tablet mouth daily. latanoprost (XALATAN) 0.005 Place 1 drop 0 7 Active % Drops into both eyes daily. pantoprazole (PROTONIX) 20 Take 20 mg by 0 7 Active mg Tablet, Delayed Release mouth daily. (E.C.) potassium chloride SA Take 10 mEq 0 11/01/2017 Active (K-DUR;KLOR-CON) 10 mEq Tab by mouth Sust.Rel. Particle/Crystal daily. fluticasone (FLONASE daily. 0 Active ALLERGY RELIEF) 50 mcg/actuation [place], Suspension doxycycline (VIBRA-TABS) 100 mg daily. 0 01/13/2018 Active 100 mg Tablet omeprazole (PriLOSEC) 40 mg Take 40 mg by 0 Active Capsule, Delayed mouth daily. Release(E.C.) Active Problems Problem Noted Date Multiple thyroid nodules 01/27/2018 Subclinical hyperthyroidism 01/27/2018 Encounters Date Type Specialty Care Team Description 05/28/2022 Telephone Endocrinology Abdiel Weinstein RN 03/04/2022 Telephone Endocrinology Roberta Hernandez I Appo intment from Last 3 Months Immunizations Name Administration Dates Next Due Td, adult 03/11/2006 Family History Medical History Relation Comments Breast Cancer Neg Hx Social History Tobacco Use Types Packs/Day Years Used Date Current Every Day Smoker Cigarettes 0.5 Smokeless Tobacco: Never Used Sex Assigned at Date Recorded Not on file Last Filed Vital Signs Vital Sign Reading [...] Mass Index 36.54 06/05/2020 1:31 PM EDT Plan of Treatment Upcoming Encounters Date Type Specialty Care Team Description 06/21/2022 Office Visit Endocrinology Asa Castañeda MD [facility] [address] [place], [place] [address] (Wo rk) Health Maintenance Due Date Last Done Comments Covid-19 Vaccine (#1) 1976 Pneumococcal Vaccine: At-Risk 5-64yrs 1977 (1 - PCV) HIV screen 1989 Hepatitis C Screening 1989 Lipid Screening 1989 Tdap adult 1990 HPV test 2001 PAP Smear 2001 Breast Cancer Share Decision Needed 2011 Diabetes Screening (HgbA1C or 2011 Glucose) Tetanus vaccine 03/11/2016 03/11/2006 Colonoscopy 2016 Zoster vaccine (1 of 2) 2021 Influenza (Flu) vaccine (1 of 1 - 07/15/2022 Influenza standard series) Breast Cancer screening 11/17/2023 11/17/2021, 10/27/2020, 10/23/2019 Medical Devices Implanted Type Area Marketing Technologist Device Shelf Model / Serial / Identifier Expiration Lot Date Breast Clip-12/11/2018 Breast Right: ankur clip 021 [id number] / Implanted: Qty: 1 on 12/11/2018 by Ros García MD Clip B reast [id number] / [id number] Insurance Payer Benefit Plan / Subscriber ID Effective Phone Address T ype Group Dates [employer] INS [id number] 2019-Prese [phone] [address] [address] [address] [place] [address] Advance Directives Documents on File Type Date Recorded Patient Search Engine Optimization Consultant Explanati on Personal Search Engine Optimization Consultant 11/16/2017 11:02 AM reji cage Care Teams Circus Hand Relationship Specialty Start Date End Date Helen Lr APRN PCP - General Family Medicine 12/11/[address] [place], [place] [address]
--- OUTSIDE RECORDS SUMMARY | 2022-05-31 02:15 | XMS_ITS | Encounter Summary ---
:1970 Author Organization [facility] [place] [address] Care Team Providers Name Role Phone Helen Lr APRN Primary Care Provider Reason for Referral Diagnostic Test (Routine) - Closed Specialty Diagnoses / Procedures Referred By Contact Refer red To Contact Radiology Diagnoses Pulmonary nodule Helen Lr APRN [facility] Rad Nuclear Med Procedures NM PET CT Skull Base to Mid-thigh [address] [place], [place] [address] [place] [address] Phone: Fax: Referral ID Status Reason Start Date Expiration Date Visits V isits Requested Authorized [id number] Closed Specialty 10/23/2020 1 1 Service Requested Reason for Visit Diagnostic Test (Routine) - Closed Specialty Diagnoses / Procedures Referred By Contact Refer red To Contact Radiology Diagnoses Pulmonary nodule Helen Lr APRN [facility] Rad Nuclear Med Procedures NM PET CT Skull Base to Mid-thigh [address] [place], [place] [address] [place] [address] Phone: Fax: Referral ID Status Reason Start Date Expiration Date Visits V isits Requested Authorized [id number] Closed Specialty 10/23/2020 1 1 Service Requested Encounter Details Date Type Department Care Team Description 10/23/2020 Hospital Encounter [facility], Pulmonary nodule Renetta Perea ADMITTING SUPERVISOR [address] [place] [address] [phone] (Wo rk) Social History Tobacco Use Types [...] (FLONASE ALLERGY daily. 0 RELIEF) 50 mcg/actuation [place], Suspension doxycycline (VIBRA-TABS) 100 100 mg daily. [...] Castañeda MD [facility] [place], [place] [address] (Wo rk) documented as of this encounter Procedures Procedure Name Priority Date/Time Associated Diagnosis Comme nts NM PET CT SKULL Routine 10/23/2020 10:18 AM Pulmonary nodule R esults for this BASE TO MID-THIGH EST procedure are in ([facility]) the results section. documented in this encounter Results NM PET CT Skull Base to Mid-thigh (10/23/2020 10:18 AM EST) Anatomical Region Laterality Modality Positron Emission To mography (PET) Specimen (Source) Anatomical Location Collection Method / Collectio n Time Received Time / Laterality Volume Impressions 10/23/2020 4:27 PM EST 1. ??A 9 mm non-FDG avid semisolid opacity in the posterior superior left lower lobe, unchanged in size compared to rece nt CT of 09/29/2020. This is indeterminate with an indolent-type lung neoplasm such as adenocarcinoma in situ not excluded. Attention on follow-up wit h low dose noncontrast CT chest in 3-6 months is recommended. 2. ??No other suspicious pulmonary nodul es. 3. ??A 20 mm non-FDG avid hypodense nodu le in the posterior right lobe of thyroid. Recommend thyroid ultrasound fo r further characterization. 4. ??Mildly FDG avid nodule in the right breast which corresponds to site of prior biopsy with reported benign findin gs on pathology. Thank you for letting us participate in the care of this patient. For questions regarding this report, please contact e number below. ? Narrative 10/23/2020 4:27 PM EST EXAMINATION: NM PET CT SKULL BASE TO MID-THIGH ? CLINICAL HISTORY: Multiple pulmonary nodules, high risk, e xtensive smoking hx, assess for malignancy TECHNIQUE: Following IV injection of 18- cxebsh-8-ytaucfyipmwf (FDG) a standard uptake of approximately 60 minutes, a no ncontrast CT scan followed by a PET scan were acquired from the base of the skull to mid thighs. The noncontrast CT was used for anatomic localization and photo n attenuation correction of the PET scan. Blood glucose level: 91 (mg/dL) FDG dose: 11.3 mCi COMPARISON: Outside CT chest 09/29/2020 FINDINGS: HEAD/NECK: Normal activity in all soft tissue regio ns of the neck and visualized lower head. No significant adenopathy. A 20 mm non-FDG avid hypodense nodule in the posterior right lobe of thyroid (axial i mage 50). CHEST: Mildly FDG avid nodule in the right damian st (axial image 72) where there is a marker clip and corresponds to site of p rior biopsy with reported benign findings on pathology. Normal activity in all other soft tissue regions. CT visualized 9 mm semisolid opacity in the posterior superior left lower lobe (axial image 77), with no significant ac tivity above adjacent lung background.. A sub-5 mm pulmonary nodule adjacent to the right major fissure (axial image 77) is favored to represent a benign intrapu lmonary lymph node. No other significant pulmonary nodules. Above-mentioned nodules are unchanged co mpared to prior CT of 09/29/2020. No significant adenopathy. ABDOMEN/PELVIS: Normal activity in all soft tissue regio ns. SKELETON/EXTREMITIES: Normal activity in all regions of the ax ial and visualized appendicular skeleton. Procedure Note Binu Pierre MD - 10/23/2020Formatti ng of this note might be different from the original. EXAMINATION: NM PET CT SKULL BASE TO MID -THIGH CLINICAL HISTORY: Multiple pulmonary nodules, high risk, e xtensive smoking hx, assess for malignancy TECHNIQUE: Following IV injection of 18- mdsqki-5-facvmucojzzk (FDG) a standard uptake of approximately 60 minutes, a no ncontrast CT scan followed by a PET scan were acquired from the base of the skull to mid thighs. The noncontrast CT was used for anatomic localization and photo n attenuation correction of the PET scan. Blood glucose level: 91 (mg/dL) FDG dose: 11.3 mCi COMPARISON: Outside CT chest 09/29/2020 FINDINGS: HEAD/NECK: Normal activity in all soft tissue regio ns of the neck and visualized lower head. No significant adenopathy. A 20 mm non-FDG avid hypodense nodule in the posterior right lobe of thyroid (axial i mage 50). CHEST: Mildly FDG avid nodule in the right damian st (axial image 72) where there is a marker clip and corresponds to site of p rior biopsy with reported benign findings on pathology. Normal activity in all other soft tissue regions. CT visualized 9 mm semisolid opacity in the posterior superior left lower lobe (axial image 77), with no significant ac tivity above adjacent lung background.. A sub-5 mm pulmonary nodule adjacent to the right major fissure (axial image 77) is favored to represent a benign intrapu lmonary lymph node. No other significant pulmonary nodules. Above-mentioned nodules are unchanged co mpared to prior CT of 09/29/2020. No significant adenopathy. ABDOMEN/PELVIS: Normal activity in all soft tissue regio ns. SKELETON/EXTREMITIES: Normal activity in all regions of the ax ial and visualized appendicular skeleton. IMPRESSION 1. A 9 mm non-FDG avid semisolid opacity in the posterior superior left lower lobe, unchanged in size compared to rece nt CT of 09/29/2020. This is indeterminate with an indolent-type lung neoplasm such as adenocarcinoma in situ not excluded. Attention on follow-up wit h low dose noncontrast CT chest in 3-6 months is recommended. 2. No other suspicious pulmonary nodules . 3. A 20 mm non-FDG avid hypodense nodule in the posterior right lobe of thyroid. Recommend thyroid ultrasound fo r further characterization. 4. Mildly FDG avid nodule in the right b reast which corresponds to site of prior biopsy with reported benign findin gs on pathology. Thank you for letting us participate in the care of this patient. For questions regarding this report, please contact e number below. Helen Adjovu ADMITTING SUPERVISOR IMG PET ORDERABLES documented in this encounter Visit Diagnoses Diagnosis Pulmonary nodule Solitary pulmonary nodule documented in this encounter Administered Medications Inactive Administered Medications - up to 3 most recent administrations Medication Order MAR Action Action Date Dose Rate Site fludeoxyglucose (F-18) FDG Given 10/23/2020 8:55 AM 11.3 mCi Right Arm injection 0-20 mCi EST 0-20 mCi, Intravenous, ONCE PRN, 1 dose, Starting on Yolanda 10/23/20 at 0935, Until Yolanda 10/23/20 at 0855, Per Protocol, Radiology Contrast, Routine documented in this encounter Care Teams Educational Fundraising Director Relationship Specialty Start Date End Date Helen Lr APRN PCP - General Family Medicine 12/11/[address] [place] [address] [facility] [address] [place] [address] documented as of this encounter
--- OUTSIDE RECORDS SUMMARY | 2022-05-31 02:15 | XMS_ITS | Encounter Summary ---
:1970 Author Organization [facility] [place] [address] Care Team Providers Name Role Phone Mehnaz Lubin APRN Primary Care Provider Encounter Details Date Type Department Care Team Description 07/07/2018 Telephone Endocrinology at [facility] [place] [address] Social History Tobacco Use Types Packs/Day Years Used Date Current Every Day Smoker Cigarettes 1 Smokeless Tobacco: Never Used Sex Assigned at Date Recorded Not on file documented as of this encounter Miscellaneous Notes Telephone Encounter - Aleida Perez LPN - 07/10/2018 3:03 PM EDT R/c to patient at which time message from Dr Jaquez was read to her. Patient agrees with plan of care and knows to call should she develop s/s of hyperthyroidism such asTachycardia, inability to sleep tremors. Call transferred to school secretary. Telephone Encounter - Aleida Perez LPN - 07/10/2018 9:59 AM EDT Images from the original note were not included. Geni Cage R?? Female, 47 y.o., 1970 Weight: 108 kg (238 lb) Home: PCP: Mehnaz Lubin APRN myD-H: Code Exp Next Appt: None ?? Message Received: Today ? Satish Jaquez, DO Aleida Perez LPN ? Caller: Unspecified (3 days ago, ??1:10 PM) ? She has very mild sub-clinical hyperthyroidism. I would not recommend treatment at this point. But she should be scheduled to see me in 4-5 months for f/u. Please verify that she is not taking Biotin. ? Previous Messages Called patient. Message left on v/m for patient to r/c to nurse at which time above message will be read to her. Telephone Encounter - Aleida Peerz LPN - 07/07/2018 3:29 PM EDT Lab result received and forward to Dr Jaquez. Called patient who verifies she is taking no meds for herthyroid. Patient advised per Dr Ortiz that she ok until Dr Jaquez returns to determine what he feels needs to be done as FT4 is ok at 0.88 Telephone Encounter - Aleida Preez LPN - 07/07/2018 1:10 PM EDT Message from patient Thyroid low. Missing my menstrual cycles again. My pcp told me to call your office Called PCP office message left on v/m of office of Mehnaz Shane APRN for results to be faxed to [phone]. documented in this encounter Plan of Treatment Upcoming Encounters Date Type Specialty Care Team Description 06/21/2022 Office Visit Endocrinology Asa Castañeda MD [facility] [address], [place] [address] (Wo rk) documented as of this encounter Visit Diagnoses Not on filedocumented in this encounter Care Teams Occupational Therapist Assistants Relationship Specialty Start Date End Date Mehnaz Lubin APRN PCP - General Family Medicine 11/11/17 12/10/18 documented as of this encounter
--- OUTSIDE RECORDS SUMMARY | 2022-05-31 02:15 | XMS_ITS | Encounter Summary ---
:1970 Author Organization [facility] [place] [address] Care Team Providers Name Role Phone Mehnaz Lubin APRN Primary Care Provider Encounter Details Date Type Department Care Team Description 11/10/2018 Ancillary Procedure Radiology Library at Bhargav Lubin, [facility] [address] [place] [address] [phone] (Wo rk) Social History Tobacco Use Types Packs/Day Years Used Date Current Every Day Smoker Cigarettes 1 Smokeless Tobacco: Never Used Sex Assigned at Date Recorded Not on file documented as of this encounter Plan of Treatment Upcoming Encounters Date Type Specialty Care Team Description 06/21/2022 Office Visit Endocrinology Asa Castañeda MD [facility] [place], [place] [address] (Wo rk) documented as of this encounter Procedures Procedure Name Priority Date/Time Associated Diagnosis Comme nts FILM LIBRARY Routine 11/10/2018 12:00 AM Results for this STORAGE ONLY MAMMO EST procedure are in the results section. documented in this encounter Results Film Library- Storage Only Mammo (11/10/2018 12:00 AM EST) Specimen (Source) Anatomical Location Collection Method / Collectio n Time Received Time / Laterality Volume Narrative RAD - 12/04/2018 8:38 AM EST This exam is for storage only and is aut o-finalizing. Mehnaz Lubin APRN IMG FILM LIBRARY ORDERABLES Performing Organization Address City/State/ZIP Code Phon e Number [facility] [place], [place] documented in this encounter Visit Diagnoses Not on filedocumented in this encounter Care Teams Glaze Handler Relationship Specialty Start Date End Date Mehnaz Lubin APRN PCP - General Family Medicine 11/11/17 12/10/18 documented as of this encounter
--- OUTSIDE RECORDS SUMMARY | 2022-05-31 02:16 | XMS_ITS | Clinical Summary ---
:1970 Author Organization [facility] Address [address] [place] [address] Care Team Providers Name Role Phone Helen Lr [address] Primary Care Provider Social History Tobacco Use Types Packs/Day Years Used Date Never Assessed Sex Assigned at Date Recorded Not on file Plan of Treatment Health Maintenance Due Date Last Done Comments Hepatitis C Screen 1970 COVID-19 Vaccine (1) 1976 Insurance Payer Benefit Plan Subscriber ID Effective Phone Address Typ e / Group Dates GENERIC GENERIC [id number] 2020-Pr Commerc ial [employer] COMMERCIAL esent [address] [place] [address] Care Teams Mailing Jogger Relationship Specialty Start Date End Date Helen Lr NP PCP - General 04/11/[address] [place] [address] [address] [place] [id number]
--- OUTSIDE RECORDS SUMMARY | 2022-05-31 02:16 | XMS_ITS | Encounter Summary ---
:1970 Author Organization [facility] [place] [address] Care Team Providers Name Role Phone Wu Young MD, Femi Primary Care Provider Encounter Details Date Type Department Care Team Description 10/25/2017 Telephone Endocrinology at [facility] [place] [address] Social History Tobacco Use Types Packs/Day Years Used Date Never Assessed Sex Assigned at Date Recorded Not on file documented as of this encounter Miscellaneous Notes Telephone Encounter - Aleida Perez LPN - 10/26/2017 10:36 AM EST Images from the original note were not included. Geni Cage?? Female, 46 y.o., 1970 Weight: None Home: PCP: Femi Washburn MD myD-H: Inactive Next Appt: 11/25/2017 ?? Message Received: Yesterday ? Kamryn Eric MD Isham, Gail, LPN ? Caller: Unspecified (Yesterday, ??4:06 PM) ? Her PCp can also refer her directly to Endocrine Surgery if she is symptomatic of an enlarged thyroid ? Previous Messages Called patient at which time above message was read to her. Patient states she understands and has left a message with her PCP's nurse regarding our conversation yesterday. Telephone Encounter - Aleida Perez LPN - 10/25/2017 4:05 PM EST R/c to patient scheduled to be seen 11/25/17 . I have multiple thyroid nodules and feel that the choking feeling is getting worse. Is scared and is asking to be seen sooner. Per secretary to the vice president there are no opening before appointment and patient is on wait list. Patient was advised to call PCP to discuss symptoms if PCP feels patient needs to be seen sooner PCPcan call and speak with D.O.C. documented in this encounter Plan of Treatment Upcoming Encounters Date Type Specialty Care Team Description 06/21/2022 Office Visit Endocrinology Asa Castañeda MD [facility] [address] [place] [address] (Wo rk) documented as of this encounter Visit Diagnoses Not on filedocumented in this encounter Care Teams Windows Consultant Relationship Specialty Start Date End Date Femi Washburn MD PCP - General 10/06/10 11/10/17 [address] [place] [address] documented as of this encounter
--- OUTSIDE RECORDS SUMMARY | 2022-05-31 02:16 | XMS_ITS | Encounter Summary ---
:1970 Author Organization [facility] [place] [address] Care Team Providers Name Role Phone Wu Young MD, John Primary Care Provider Encounter Details Date Type Department Care Team Description 10/12/2017 Hospital Encounter Radiology Library at Robert Olivares MD Pain [facility] [place] [address] DEPT. [phone] [place], [place] [address] (Wo rk) Social History Tobacco Use Types Packs/Day Years Used Date Never Assessed Sex Assigned at Date Recorded Not on file documented as of this encounter Medications at Time of Discharge Medication Sig Dispensed Refills Start Date End Date PROAIR HFA 90 Inhale 2 puffs into 0 07/05/2017 mcg/actuation HFA Aerosol the lungs every 6 Inhaler hours as needed. latanoprost (XALATAN) Place 1 drop into 0 017 0.005 % Drops both eyes daily. CIS Free Text Med - 75MG = 1 Tablet(s), 0 007 11/11/2017 Effexor PO, Once daily documented as of this encounter Plan of Treatment Upcoming Encounters Date Type Specialty Care Team Description 06/21/2022 Office Visit Endocrinology Asa Castañeda MD [facility] [place], [place] [address] (Wo rk) documented as of this encounter Procedures Procedure Name Priority Date/Time Associated Comments Diagnosis FILM LIBRARY STORAGE Routine 10/12/2017 12:00 AM Pain Results for this ONLY ULTRASOUND EST procedure ar e in STUDY the results section. documented in this encounter Results Film Library- Storage Only Ultrasound Study (10/12/2017 12:00 AM EST) Specimen (Source) Anatomical Location Collection Method / Collectio n Time Received Time / Laterality Volume Narrative ROMA - 10/19/2017 9:08 AM EST This exam is for storage only and is aut o-finalizing. Robert Olivares MD IMG FILM LIBRARY ORDERABLES Performing Organization Address City/State/ZIP Code Phon e Number [place], [place] documented in this encounter Visit Diagnoses Diagnosis Pain Generalized pain documented in this encounter Care Teams Consulting Networking Engineer Relationship Specialty Start Date End Date Femi Washburn MD PCP - General 10/06/10 11/10/17 [address] [place] [address] documented as of this encounter
--- OUTSIDE RECORDS SUMMARY | 2022-05-31 02:17 | XMS_ITS | Encounter Summary ---
:1970 Author Organization [facility] Address [address] [place] [address] Care Team Providers Name Role Phone Helen Lr MEDICAL OFFICE COORDINATOR Primary Care Provider Encounter Details Date Type Department Care Team Description 04/23/2020 Lab Requisition [facility] Outr Resulting Lab, Pathology & Laboratory Provider [facility] [address] [place], [place] [id number] Social History Tobacco Use Types Packs/Day Years Used Date Never Assessed Sex Assigned at Date Recorded Not on file documented as of this encounter Plan of Treatment Not on filedocumented as of this encounter Procedures Procedure Name Priority Date/Time Associated Diagnosis Comme nts CELIAC DISEASE Routine 04/23/2020 10:48 Results f or this PANEL EDT procedure are i n the results section. documented in this encounter Results CELIAC DISEASE PANEL (04/23/2020 10:48 EDT) Tissue <1.2 <4.0 U/mL [facility] Transglutaminase Comment: [place] Antibody [facility] A negative result may be due to IgA deficiency and does not rule out celiac disease. SERVICES ? Negative: ??<4.0 U/mL ? Weak Positive: ??4.0 - 10.0 U/mL ? Positive: ??>10.0 U/mL Results were obtained with t [employer] QUANTA Lite R h-tTG IgA YUE assay on the [employer] DSX. IgA 291 85 - 499 [facility] mg/dL [facility] Celiac Disease [facility] Interpretation Negative Serology. Celiac di sease unlikely. Approximately 10% of patients with celiac disease are seronegative. Patients who are already adhering to a gluten-free diet may also be seronegative. If nyla NERY TER c disease is highly clinical ly suspected, referral to gastroenterology for additional evaluation is recommended. LABORATORY SERVICES Specimen Blood - Venous blood (substance) Performing Organization Address City/State/ZIP Code Phon e Number [facility] [address] [place] [address] SERVICES documented in this encounter Visit Diagnoses Not on filedocumented in this encounter Care Teams Steel Pourer Relationship Specialty Start Date End Date Helen Lr NP PCP - General 04/11/[address] [place] [address] [address] [place] [id number] documented as of this encounter
--- OUTSIDE RECORDS SUMMARY | 2022-05-31 02:17 | XMS_ITS | Encounter Summary ---
:1970 Author Organization [facility] Address [address] [place] [address] Care Team Providers Name Role Phone Helen Lr FRONT END MECHANIC Primary Care Provider Encounter Details Date Type Department Care Team Description 11/12/2020 Lab Requisition [facility] Outr Resulting Lab, Pathology & Laboratory Provider [facility] [address] [place], [place] [address] Social History Tobacco Use Types Packs/Day Years Used Date Never Assessed Sex Assigned at Date Recorded Not on file documented as of this encounter Plan of Treatment Not on filedocumented as of this encounter Procedures Procedure Name Priority Date/Time Associated Diagnosis Comme nts COVID-19 TEST [facility] Today 11/12/2020 16:00 LAB PCR EST COVID-19 TESTING Routine 11/12/2020 16:00 Results for this EST procedure are i n the results section. documented in this encounter Results COVID-19 TEST [facility] LAB PCR (11/12/2020 16:00 EST) Specimen Swab - Entire nasopharynx (body structur e) Performing Organization Address City/State/ZIP Code Phon e Number [facility] [address] [place] [address] SERVICES COVID-19 TESTING (11/12/2020 16:00 EST) COVID-19 rt-PCR Negative Negative [facility] Result Comment: [facility] This test has not been FDA c leared or approved. This test has been authorized by FDA under an EUA for use by authorized laboratories. This test has been authorized only for detection of nucleic acid fro SERVICES m 2018-nCo, not for any oth er viruses or pathogens. This test is only authorized for the duration of the declaration that circumstances exist justifying the authorization of emergency use of in vitro d iagnostic tests for detectio n and/or diagnosis of 2019-nCoV under section 564(b)(1) of Act, 21 U.S.C ?? 360bbb-3(b) (1), unless the authorization is terminated or revoked sooner. Negative results do not prec lude 2019-nCoV infection and should not be used as the sole basis for treatment or other patient management decisions. Negative results must be combined with clinical observa tions, patient history, and epidemiological informatio n. Performed on the Intelaher Fusion instrument Performing Lab [place] [facility] Lab [facility] SERVICES Specimen Swab Performing Organization Address City/State/ZIP Code Phon e Number [facility] [address] [place] [address] SERVICES documented in this encounter Visit Diagnoses Not on filedocumented in this encounter Care Teams Warehouse Operations Manager Relationship Specialty Start Date End Date Helen Lr NP PCP - General 04/11/[address] [place] [phone] documented as of this encounter
--- OUTSIDE RECORDS SUMMARY | 2022-05-31 02:17 | XMS_ITS | Encounter Summary ---
:1970 Author Organization [facility] Address [address] [place] [address] Care Team Providers Name Role Phone Helen Lr SCHOOL LIBR[employer] MEDIA SPECIALIST Primary Care Provider Encounter Details Date Type Department Care Team Description 04/11/2020 Lab Requisition [facility] [place], Change in bowel habit; Pathology & MD Left upper quadrant pain Laboratory Medicine [address] [place], [place] 111 [facility] [address] [place], [place] [address] Social History Tobacco Use Types Packs/Day Years Used Date Never Assessed Sex Assigned at Date Recorded Not on file documented as of this encounter Plan of Treatment Not on filedocumented as of this encounter Procedures Procedure Name Priority Date/Time Associated Diagnosis Comme nts SURGICAL PATHOLOGY Today 04/11/2020 9:00 EDT Change in bowel Results for this habit procedure are in Left upper quadrant the resu lts pain section. documented in this encounter Results SURGICAL PATHOLOGY (04/11/2020 9:00 EDT) Final Diagnosis A. DUODENUM, BIOPSY: [facility] Elec tronically - Slightly increased intraep ithelial lymphocytes with intact villous architecture CENTER signed by Bo LABORATORY Kerri Freed MD on B. STOMACH, BIOPSY: SERVICES 04/16/2020 at 0923 - Reactive gastropathic changes without significant in flammation C. DESCENDING COLON, BIOPSY: - Sessile serrated adenoma D. RECTUM, BIOPSY: - Hyperplastic polyp Attestation By the signature [facility] Electronica lly below, the attending CENTER signed by Bo, physician certifies LABORATORY Kerri Freed MD on that they have 1) SERVICES 04/16/2020 a t 0923 personally conducted a gross and/or microscopic examination of the described specimen(s), and/or personally interpreted the results of laboratory testing of the described specimen(s), and 2) personally rendered or confirmed the above diagnosis. Clinical History GERD, change bowel [facility] habits; [facility] LABORATORY SERVICES Gross Description A. Received in formalin labe lled with proper patient identification (initials C, A) and duodenal? is a appiah-pink tissue (0.4 x 0.3 x 0.2 cm). Submitted in toto in A1. [facility] B. Received in formalin labe lled with proper patient identification (initials C, A) and gastric are 2 appiah-pink tissues (0.2 x 0.2 x 0.1 cm and 0.5 x 0.3 x 0.2 cm). Submitted in toto in B1. LABORATORY SERVICES C. Received in formalin labe lled with proper patient identification (initials C, A) and descending colon polyp is an aggregate of appiah-brown tissue fragments (0.8 x 0.6 x 0.2 cm). Submitted in toto in C1. D. Received in formalin labe lled with proper patient identification (initials C, A) and rectal polyp is a appiah-brown tissue (0.3 x 0.2 x 0.2 cm). Submitted in toto in D1. Kathy Wang 04/11/2020 16:00 Scanned Images [facility] SERVICES Specimen Tissue - Specimen from rectum (specimen) Tissue specimen (specimen) - Entire stom ach (body structure) Tissue specimen (specimen) - Descending colon structure (body structure) Tissue specimen (specimen) - Specimen fr om rectum (specimen) Performing Organization Address City/State/ZIP Code Phon e Number [facility] [address] [place] [address] SERVICES documented in this encounter Visit Diagnoses Diagnosis Change in bowel habit Left upper quadrant pain Abdominal pain, left upper quadrant documented in this encounter Care Teams Site Supervisor Relationship Specialty Start Date End Date Helen Lr NP PCP - General 04/11/[address] [place] [phone] documented as of this encounter
--- OUTSIDE RECORDS SUMMARY | 2022-05-31 02:17 | XMS_ITS | Encounter Summary ---
:1970 Author Organization [facility] Address [address] [place] [address] Care Team Providers Name Role Phone Unavailable Primary Care Provider Unavailable Encounter Details Date Type Department Care Team Description 09/01/2017 Results Only [facility]- Mehnaz Keita NP [phone] [address] [facility] [place] [address] (Wo rk) Social History Tobacco Use Types Packs/Day Years Used Date Never Assessed Sex Assigned at Date Recorded Not on file documented as of this encounter Plan of Treatment Not on filedocumented as of this encounter Procedures Procedure Name Priority Date/Time Associated Diagnosis Comme nts PAP TEST- RESULT Routine 09/01/2017 0:00 EDT Resu lts for this ONLY procedure are i n the results section. documented in this encounter Results PAP TEST- RESULT ONLY (09/01/2017 0:00 EDT) Pathology Report: CYTOPATHOLOGY REPORT [facility] Reports generated via electronic interface contain alice ginal data; SERVICES however they are lacking the format of the original re port. Caution should be taken when reading/interpreting unfo rmatted reports. Name: ? GISSEL CAGE N ? Accession #: ? [id number] ? : ? 1970 (Age: [age]) ??F ?Collect Da te: ? 09/01/2017 ? Location: ? [facility] ? Receive Date: ? 017 ? Provider: MEHNAZ VO RAILROAD SIGNAL OPERATOR Copy to: ? Final Report SPECIMEN ADEQUACY ? Satisfactory for Evaluation - transformation zone component present GENERAL CATEGORIZATION ? Negative for Intraepithelial Lesion or Malignan cy INTERPRETATION ? Shift in zak present suggestive of bacterial vaginosis. 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 Fabi Crane, CT(ASCP) ? Report ??Date: 09/14/2017 14:13 HPV with Pap Test ? Date Ordered: ? 09/14/2017 ? Status: ?? Signed Out ?Date Complete: ? 09/15/2017 ? By: ??Sy stem Interface ? Date Reported: ? 09/15/2017 ? Interpretation RESULT: Negative for HPV. No E6 or E7 mRNA is detected from HPV types 16,18,31,3 3,35, 39,45,51,52,56,58,59,66, and 68 by hose turner media jing amplification. Comments Document reviewed and electronically signed by: ? System Interface ? Report date: 09/15/2017 By the signature above, the attending physician certif ies that he/she has personally conducted a gross and/or microscopic examin ation of the described specimens and rendered or confirmed the above diagnosi s. End of Report Specimen Performing Organization Address City/State/ZIP Code Phon e Number [facility] [address] [place] [address] SERVICES documented in this encounter Visit Diagnoses Not on filedocumented in this encounter
--- OUTSIDE RECORDS SUMMARY | 2022-05-31 02:17 | XMS_ITS | Encounter Summary ---
:1970 Author Organization [facility] Address [address] [place] [address] Care Team Providers Name Role Phone Unavailable Primary Care Provider Unavailable Encounter Details Date Type Department Care Team Description 07/30/2014 Results Only [facility]- [facility] Mehnaz Vo NP [phone] [facility] [facility] [place] [address] (Wo rk) Social History Tobacco Use Types Packs/Day Years Used Date Never Assessed Sex Assigned at Date Recorded Not on file documented as of this encounter Plan of Treatment Not on filedocumented as of this encounter Procedures Procedure Name Priority Date/Time Associated Diagnosis Comme nts PAP TEST- RESULT Routine 07/30/2014 0:00 EDT Resu lts for this ONLY procedure are i n the results section. documented in this encounter Results PAP TEST- RESULT ONLY (07/30/2014 0:00 EDT) Pathology Report: CYTOPATHOLOGY REPORT [facility] Reports generated via electronic interface contain alice ginal data; however they are lacking the format of the original re port. Caution should be taken when reading/interpreting unfo rmatted reports. Name: ? GISSEL CAGE N ? Accession #: ? [id number] ? : ? 1970 (Age: 43) ??F ?Collect Da te: ? 07/30/2014 ? Location: ? [facility] ? Receive Date: ? 014 ? Provider: MEHNAZ VO STONE CUTTER Copy to: ? Final Report SPECIMEN ADEQUACY ? Satisfactory for Evaluation - transformation zone component present GENERAL CATEGORIZATION ? Negative for Intraepithelial Lesion or Malignan cy ?? Last Menstrual Period: 07/15/14 Previous Gynecologic Pathology: LSIL: Previous , Pa ps since normal Treatment History: Cryotherapy: Specimen/Source: ??Pap Test, Cervix/Endocervix, ThinPr ep Imaging System with manual evaluation Document reviewed and electronically signed by: ? YOLY Godoy(ASCP) ? Report ??Date: 08/07/2014 08:11 HPV with Pap Test ? Date Ordered: ? 08/06/2014 ? Status: ?? Signed Out ?Date Complete: ? 08/12/2014 ? By: ??S ystem Interface ? Date Reported: ? 08/12/2014 ? Interpretation RESULT: Negative for HPV. No E6 or E7 mRNA is detected from HPV types 16,18,31,3 3,35, 39,45,51,52,56,58,59,66, and 68 by tax director media jing amplification. Comments Document reviewed and electronically signed by: ? System Interface ? Report date: 08/12/2014 By the signature above, the attending physician certif ies that he/she has personally conducted a gross and/or microscopic examin ation of the described specimens and rendered or confirmed the above diagnosi s. End of Report Specimen Performing Organization Address City/State/ZIP Code Phon e Number [facility] [address] [place] [address] SERVICES [facility] [address] [place] [address] documented in this encounter Visit Diagnoses Not on filedocumented in this encounter
--- OUTSIDE RECORDS SUMMARY | 2022-05-31 02:17 | XMS_ITS | Encounter Summary ---
:1970 Author Organization [facility] Address [address] [place] [address] Care Team Providers Name Role Phone Unavailable Primary Care Provider Unavailable Encounter Details Date Type Department Care Team Description 05/06/2008 Before PRISM Converted [facility] - Rohan Glass PA Visit (Maple) Maple conversion [address] [place] [address] Social History Tobacco Use Types Packs/Day Years Used Date Never Assessed Sex Assigned at Date Recorded Not on file documented as of this encounter Plan of Treatment Not on filedocumented as of this encounter Procedures Procedure Name Priority Date/Time Associated Diagnosis Comme nts HPV DETECTION, HIGH Routine 05/06/2008 15:47 Resu lts for this RISK TYPES EDT procedure are i n the results section. documented in this encounter Results HUMAN PAPILLOMA VIRUS DNA TEST (05/06/2008 15:47 EDT) Specimen Description Cervix, ThinPrep [facility] vial Result Negative for HPV [facility] types 16, 18, 31, 33, 35, 39, 45, 51, 52, 56, 58, 59, and 68. Report Status Final [facility] [id number] Specimen Performing Organization Address City/State/ZIP Code Phon e Number [facility] [address] [place] [address] SERVICES [facility] [address] [place] [address] documented in this encounter Visit Diagnoses Not on filedocumented in this encounter
--- OUTSIDE RECORDS SUMMARY | 2022-05-31 02:17 | XMS_ITS | Encounter Summary ---
:1970 Author Organization [facility] Address [address] [place] [address] Care Team Providers Name Role Phone Mehnaz Lubin CAT DOG OR OTHER PET GROOMER Primary Care Provider Helen Lr CAT DOG OR OTHER PET GROOMER Primary Care Provider Encounter Details Date Type Department Care Team Description 10/28/2019 Lab Requisition [facility] Unknown, Provider, Pathology & Laboratory [facility] [address] [place] [address] [place] [address] Social History Tobacco Use Types Packs/Day Years Used Date Never Assessed Sex Assigned at Date Recorded Not on file documented as of this encounter Plan of Treatment Not on filedocumented as of this encounter Procedures Procedure Name Priority Date/Time Associated Comments Diagnosis HIV 1/2 ANTIGEN AND Routine 10/26/2019 16:15 Resu lts for this ANTIBODY, 4TH EST procedure are in GENERATION the results section. documented in this encounter Results HIV 1/2 ANTIGEN AND ANTIBODY, 4TH GENERATION (10/26/2019 16:15 EST) HIV 1 and 2 Negative Negative [facility] Antibody/p24 Comment: LABORATORY Antigen, 4th SERVICES Generation If acute HIV-1 infection is suspected in a high risk ??patient, submit plasma specimen for HIV-1 RNA quantitation test. Fourth Generation assay performed on the Siemens Feeding Forwarda ur. Specimen Blood - Venous blood (substance) Performing Organization Address City/State/ZIP Code Phon e Number [facility] [address] [place] [address] SERVICES documented in this encounter Visit Diagnoses Not on filedocumented in this encounter Care Teams Chip Person Relationship Specialty Start Date End Date Mehnaz Lubin, CAT DOG OR OTHER PET GROOMER PCP - General 1/11/18 5/28/20 Helen Lr NP PCP - General 04/11/[address] [place] [address] [address] [place] [address] documented as of this encounter
--- OUTSIDE RECORDS SUMMARY | 2022-05-31 02:17 | XMS_ITS | Encounter Summary ---
:1970 Author Organization [facility] Address [address] [place] [address] Care Team Providers Name Role Phone Unavailable Primary Care Provider Unavailable Encounter Details Date Type Department Care Team Description 11/22/2017 Hospital Encounter [facility]- [facility] Unknown, Provider, [facility] 0 [facility] [phone] [place] [address] (Work) [phone] Social History Tobacco Use Types Packs/Day Years Used Date Never Assessed Sex Assigned at Date Recorded Not on file documented as of this encounter Discharge Disposition Disposition Code Departure Means Destination Auto Discharge Home documented in this encounter Plan of Treatment Not on filedocumented as of this encounter Visit Diagnoses Not on filedocumented in this encounter
--- OUTSIDE RECORDS SUMMARY | 2022-05-31 02:17 | XMS_ITS | Encounter Summary ---
:1970 Author Organization [facility] Address [address] [place] [address] Care Team Providers Name Role Phone Helen Lr MOTOR VEHICLE OR CARAVAN SALESPERSON Primary Care Provider Encounter Details Date Type Department Care Team Description 12/13/2020 Lab Requisition [facility] Outr Resulting Lab, Pathology & Laboratory Provider [facility] [address] [place], [place] [id number] Social History Tobacco Use Types Packs/Day Years Used Date Never Assessed Sex Assigned at Date Recorded Not on file documented as of this encounter Plan of Treatment Not on filedocumented as of this encounter Procedures Procedure Name Priority Date/Time Associated Diagnosis Comme nts T3, TOTAL Routine 12/12/2020 14:16 EST Results for this procedure are i n the results section . documented in this encounter Results T3, TOTAL (12/12/2020 14:16 EST) Pathologist Sig nature T3, Total 159 97 - 169 ng/dL [facility] SERVICES Specimen Blood - Venous blood (substance) Performing Organization Address City/State/ZIP Code Phon e Number [facility] [address] [place] [address] SERVICES documented in this encounter Visit Diagnoses Not on filedocumented in this encounter Care Teams Analytical Data Scientist Relationship Specialty Start Date End Date Helen Lr NP PCP - General 04/11/[address] [place] [phone] documented as of this encounter
[2022-05-31 22:36] LABS: T3, Total 158 ng/dL (97-169)
== END 2022-05-31 02:12 | disposition home or self-care (01) ==
LOC: LBO 02:11
PROVIDERS: PCP Nurse Practitioner Family; Visit Provider Internal Medicine
DX: E05.90 Thyrotoxicosis, unspecified without thyrotoxic crisis or storm (principal)
CPT/HCPCS: 36415; 84480

== ENCOUNTER 2022-10-14 14:28 | Outpatient (REF) | payer OTHER, SELFPAY | END 2022-10-14 14:29 | disposition home or self-care (01) | LOC: LBN 14:28 | PROVIDERS: PCP Nurse Practitioner Family; Visit Provider Nurse Practitioner Family | DX: N89.8 Other specified noninflammatory disorders of vagina (principal) | CPT/HCPCS: 87480; 87510; 87660 ==

== ENCOUNTER 2022-10-21 18:46 | Outpatient (REF) | payer OTHER, SELFPAY ==
[2022-10-21 20:27] LABS: Bilirubin Negative (Negative); Blood Negative (Negative); Clarity Clear (Clear); Glucose Negative (Negative); Ketones Negative (Negative); Leukocyte Esterase Negative (Negative); Nitrite Negative (Negative); Specific Gravity 1.015 (1.005-1.025); Urobilinogen 0.2 EU/dL (Up TO 0.2)
[2022-10-24 14:52] LABS: Chlamydia Result Negative (Negative); GC Result Negative (Negative)
== END 2022-10-21 18:47 | disposition home or self-care (01) ==
LOC: LBN 18:46
PROVIDERS: PCP Nurse Practitioner Family; Visit Provider Physician Assistant
DX: R30.0 Dysuria (principal); R39.89 Other symptoms and signs involving the genitourinary system; Z11.3 Encounter for screening for infections with a predominantly sexual mode of transmission
CPT/HCPCS: 87491; 87591; 81003; 87480; 87510; 87660

== ENCOUNTER 2022-11-26 01:21 | Outpatient (CLI) | payer OTHER, SELFPAY ==
[2022-11-26 16:16] LABS: ALT 26 U/L (14-59); AST 22 U/L (15-37); Albumin 3.9 g/dL (3.4-5.0); Alkaline Phosphatase 66 U/L (46-116); Anion Gap 5.6 mmol/L (3-11); BUN 15 mg/dL (7-18); Bilirubin, Total 0.4 mg/dL (0.2-1.0); CO2 31.4 mmol/L (21.0-32.0); CREATININE 0.6 mg/dL (0.55-1.02); Calculated LDL 149 mg/dL (<100); Chloride 103 mmol/L (98-107); Cholesterol 261 mg/dL (<200); Estimated GFR 109.28 (mL/min/1.73m2); Glucose 107 mg/dL (74-106); HDL Cholesterol 100 mg/dL (40-60); Potassium 3.7 mmol/L (3.5-5.1); Sodium 140 mmol/L (136-145); TSH 0.06 uIU/mL (0.36-3.74); Total Protein 7.6 g/dL (6.4-8.2); Triglyceride 60 mg/dL (<150)
[2022-11-26 16:46] LABS: FREE T4 0.83 ng/dL (0.76-1.46)
== END 2022-11-26 01:22 | disposition home or self-care (01) ==
LOC: LBO 01:22
PROVIDERS: PCP Nurse Practitioner Family; Visit Provider Nurse Practitioner Family
DX: E05.90 Thyrotoxicosis, unspecified without thyrotoxic crisis or storm (principal); E78.5 Hyperlipidemia, unspecified
CPT/HCPCS: 36415; 80053; 80061; 84439; 84443

== ENCOUNTER 2022-12-14 01:22 | Outpatient (CLI) | payer OTHER, SELFPAY ==
--- NOTE | 2022-12-14 07:00 | DI.US_ITS ---
Exam(s) US PELVIS TRANSVAGINAL EXAM: US PELVIS TRANSVAGINAL CLINICAL HISTORY: pelvic pain,r10.2. TECHNIQUE: Transabdominal and transvaginal pelvic ultrasound was performed using standard protocol. COMPARISON: US PELVIS TRANSVAG from 02/11/2015 FINDINGS: KIDNEYS: Limited renal evaluation is unremarkable. UTERUS: Position: Anteverted. Size: 8.5 long by 4.5 AP by 6.1 transverse cm Endometrium: 0.9 cm. Normal for patient's menstrual status. Myometrium: Hypoechoic nodules are seen within the myometrium most consistent with uterine fibroids. The largest measures 2 x 1.4 x 1.7 cm. Cervix: Unremarkable. OVARIES: Right: 1.1 x 1.7 x 2.1 cm Cyst or mass: No suspicious cystic or solid masses. Left: 2.5 x 2 x 1.7 cm Cyst or mass: No suspicious cystic or solid masses. DOPPLER: Color: Symmetric and uniform flow to both ovaries. CUL-DE-SAC: Free fluid: None. Other: None. IMPRESSION: 1. Limited evaluation of the kidneys is unremarkable. 2. Uterine fibroids. 3. Unremarkable bilateral ovaries. DATA REPOSITORY:
== END 2022-12-14 01:42 ==
PROVIDERS: PCP Nurse Practitioner Family; Visit Provider Nurse Practitioner Family
DX: R10.2 Pelvic and perineal pain (principal); D25.9 Leiomyoma of uterus, unspecified
CPT/HCPCS: 76830; 76856

== ENCOUNTER 2023-03-29 03:08 | Outpatient (CLI) | payer OTHER, SELFPAY ==
[2023-03-29 17:30] LABS: FREE T4 0.69 ng/dL (0.76-1.46); TSH 0.08 uIU/mL (0.36-3.74)
== END 2023-03-29 03:09 | disposition home or self-care (01) ==
PROVIDERS: PCP Nurse Practitioner Family; Visit Provider Internal Medicine
DX: E05.90 Thyrotoxicosis, unspecified without thyrotoxic crisis or storm (principal)
CPT/HCPCS: 36415; 84439; 84443

== ENCOUNTER 2023-05-20 02:13 | Outpatient (CLI) | payer OTHER, SELFPAY ==
[2023-05-20 14:08] LABS: FREE T4 0.68 ng/dL (0.76-1.46); TSH 0.29 uIU/mL (0.36-3.74)
== END 2023-05-20 02:14 | disposition home or self-care (01) ==
PROVIDERS: PCP Nurse Practitioner Family; Visit Provider Internal Medicine
DX: E05.90 Thyrotoxicosis, unspecified without thyrotoxic crisis or storm (principal)
CPT/HCPCS: 36415; 84439; 84443

== ENCOUNTER 2023-09-05 03:54 | Outpatient (CLI) | payer OTHER, SELFPAY ==
[2023-09-05 14:49] LABS: FREE T4 0.73 ng/dL (0.76-1.46)
[2023-09-05 15:01] LABS: T4 5.9 ug/dL (4.7-13.3)
[2023-09-05 22:16] LABS: T3, Total 151 ng/dL (97-169)
== END 2023-09-05 03:55 | disposition home or self-care (01) ==
PROVIDERS: PCP Nurse Practitioner Family; Visit Provider Internal Medicine
DX: E05.90 Thyrotoxicosis, unspecified without thyrotoxic crisis or storm (principal)
CPT/HCPCS: 36415; 84436; 84439; 84443; 84480

== ENCOUNTER → 2023-10-03 02:30 | Outpatient (CLI) | payer OTHER, SELFPAY ==
--- NOTE | 2023-10-03 08:59 | DI.RAD_ITS ---
Exam(s) XR HIP PELVIS ADULT BL EXAM: XR HIP PELVIS ADULT BL CLINICAL HISTORY: bilateral hip pain, M25.551, M25.552. TECHNIQUE: 2D digital imaging was performed. Three views. COMPARISON: No exams were available for comparison FINDINGS: BONES: No acute fracture is present. No bony destructive lesion is seen. Enthesophytes at the iliac wings and greater tuberosities. JOINTS: No dislocation present. SI joints and pubic symphysis unremarkable. SOFT TISSUE: Normal. IMPRESSION: Unremarkable radiographs of the bilateral hips. DATA REPOSITORY: RADIATION DOSE DELIVERED:
--- NOTE | 2023-10-03 08:59 | DI.RAD_ITS ---
Exam(s) XR KNEE RT 3V AP,LAT,LINDA XR KNEE LT 3V AP,LAT,LINDA EXAM: XR KNEE RT 3V AP,LAT,LINDA CLINICAL HISTORY: bilateral knee pain, M25.561, M25.562. TECHNIQUE: 2D digital imaging was performed. Three views. COMPARISON: CR LEFT TIB/FIB from 02/19/2013 CR XR KNEE LT 3V AP,LAT,LINDA from 10/03/2023 FINDINGS: BONES: No acute fracture is present. No bony destructive lesion is seen. A prominent irregular fabel la is noted bilaterally. This is a developmental variant. JOINTS: The joint spaces are maintained. No significant periarticular spurring the knee is normally aligned. No joint effusion is seen. SOFT TISSUE: Venous varicosities. IMPRESSION: No acute abnormality DATA REPOSITORY: RADIATION DOSE DELIVERED:
--- NOTE | 2023-10-03 14:38 | DI.CTLCSR_ITS ---
Exam(s) CT CHEST LUNG CANCER SCREEN EXAM: CT CHEST LUNG CANCER SCREEN CLINICAL HISTORY: Screening for lung cancer, CURRENT SMOKER, F17.210 TECHNIQUE: Imaging Protocol: Axial computed tomography images with coronal and sagittal reformatted images were created and reviewed. Low dose screening protocol. COMPARISON: CT CT CHEST LUNG CANCER SCREEN from 09/13/2022 FINDINGS: Tracheobronchial tree: No bronchiectasis or mucus plugging.. Mediastinum and Amparo: No dominant adenopathy or fluid collection. Pulmonary parenchyma: No consolidation or dominant measurable mass. No visible emphysematous changes. Lung Nodules: Stable 3 millimeter nodule left lower lobe. Pleura: No effusion. No pneumothorax. Heart: The heart is mildly dilated. No coronary artery calcifications are seen. Aorta: Thoracic aorta non-dilated. Upper abdomen: Unremarkable. Bones: Unremarkable for age. Soft Tissues: Unremarkable. IMPRESSION: Stable 3 millimeter nodule left lower lobe Lung RADS Cat 2 - Benign Appearance / Behavior: Nodules with a very low likelihood of becoming a clin ically active cancer due to size or lack of growth Lung-RADS 1.0 CATEGORIES: Category 0 - Prior chest CT exam(s) being located for comparison. Category 1 - Annual screening in 12 months. No nodules or definitely benign nodules. Category 2 - Annual screening in 12 months. Benign appearance. Nodules with low likelihood of becomin g active cancer. Category 3 - 6-month follow-up. Probably benign. Short-term follow-up suggested. Nodules with low lik elihood of becoming active cancer. Category 4A - 3-month follow-up and CT/PET if >8 mm in size. Suspicious finding. Findings which requi re additional testing. Category 4B - Findings which require additional testing and tissue sampling. Category 4X - Category 3 or 4 nodules with additional features or imaging findings that increases the suspicion of malignancy. Modifier S- Potentially clinically significant findings (non lung cancer) RADIATION DOSE DELIVERED: Total DLP DATA REPOSITORY: All CT scans at this facility are submitted to the National Radiology Data Registry (NRDR) Dose Index Registry (DIR) with the [employer] (ACR). RADIATION OPTIMIZATION: All CT scans at this facility use at least one of these dose optimization te chniques: automated exposure control; mA and/or kV adjustment per patient size (includes targeted exa ms where dose is matched to clinical indication); or iterative reconstruction.
== END ==
PROVIDERS: PCP Nurse Practitioner Family; Visit Provider Nurse Practitioner Family
DX: F17.210 Nicotine dependence, cigarettes, uncomplicated; Z12.2 Encounter for screening for malignant neoplasm of respiratory organs; R91.1 Solitary pulmonary nodule; M25.561 Pain in right knee; M25.562 Pain in left knee
CPT/HCPCS: 71271; 73521; 73562

== ENCOUNTER 2024-01-25 03:54 | Outpatient (CLI) | payer OTHER, SELFPAY ==
[2024-01-25 12:10] LABS: Abs Immature Grans 0.02 10^3/uL (0.0-0.06); Absolute Basophil Count 0.04 10^3/uL (0.0-0.2); Absolute Eosinophil Count 0.12 10^3/uL (0.0-0.7); Absolute Lymphocyte Count 2.72 10^3/uL (1.2-3.4); Absolute Monocyte Count 0.52 10^3/uL (0.1-0.8); Absolute Neutrophil Count 3.18 10^3/uL (1.2-6.7); Basophils % 0.6; Eosinophils % 1.8; HCT 40.6 % (36.0-46.0); HGB 13.7 g/dL (11.2-15.7); Immature Grans % 0.3; Lymphocytes % 41.2; MCH 32.9 pg (27.0-33.0); MCHC 33.7 % (32.0-36.0); MCV 98 fL (80-95); MPV 9.6 fL (8.0-11.0); Monocytes % 7.9; Neutrophils % 48.2; Platelet Count 299 10^3/uL (130-400); RBC 4.16 10^6/uL (3.93-5.22); RDW 12.5 % (11.7-14.6)
[2024-01-25 12:49] LABS: Hemoglobin A1C 5.5 % (<5.7)
[2024-01-25 12:50] LABS: ALT 26 U/L (14-59); AST 16 U/L (15-37); Albumin 3.9 g/dL (3.4-5.0); Alkaline Phosphatase 72 U/L (46-116); Anion Gap 9.6 mmol/L (3-11); BUN 23 mg/dL (7-18); Bilirubin, Total 0.4 mg/dL (0.2-1.0); CO2 29.4 mmol/L (21.0-32.0); CREATININE 0.8 mg/dL (0.55-1.02); Calcium 9.4 mg/dL (8.5-10.1); Calculated LDL 144 mg/dL (<100); Chloride 103 mmol/L (98-107); Cholesterol 253 mg/dL (<200); Glucose 99 mg/dL (74-106); HDL Cholesterol 89 mg/dL (40-60); Potassium 3.6 mmol/L (3.5-5.1); Sodium 142 mmol/L (136-145); TSH (W/Ref FT4) 0.22 uIU/mL (0.36-3.74); Total Protein 7.6 g/dL (6.4-8.2); Triglyceride 102 mg/dL (<150)
[2024-01-25 13:08] LABS: FREE T4 0.79 ng/dL (0.76-1.46)
[2024-01-25 20:53] LABS: Hepatitis C Ab w Rflx HCV PCR Negative (Negative)
== END 2024-01-25 03:55 | disposition home or self-care (01) ==
LOC: LOS 03:55
PROVIDERS: PCP Nurse Practitioner Family; Visit Provider Nurse Practitioner Family
DX: E05.90 Thyrotoxicosis, unspecified without thyrotoxic crisis or storm (principal); I10 Essential (primary) hypertension; Z00.00 Encounter for general adult medical examination without abnormal findings
CPT/HCPCS: 36415; 80053; 80061; 86803; 83036; 84439; 84443; 85025

== ENCOUNTER 2024-07-17 05:28 | Outpatient (CLI) | payer OTHER, SELFPAY ==
[2024-07-17 15:16] LABS: Abs Immature Grans 0.01 10^3/uL (0.0-0.06); Absolute Basophil Count 0.02 10^3/uL (0.0-0.2); Absolute Eosinophil Count 0.07 10^3/uL (0.0-0.7); Absolute Lymphocyte Count 2.19 10^3/uL (1.2-3.4); Absolute Monocyte Count 0.53 10^3/uL (0.1-0.8); Absolute Neutrophil Count 3.11 10^3/uL (1.2-6.7); Basophils % 0.3 %; Eosinophils % 1.2 %; HCT 40.5 % (36.0-46.0); HGB 13.7 g/dL (11.2-15.7); Immature Grans % 0.2 %; Lymphocytes % 36.9 %; MCHC 33.8 % (32.0-36.0); MCV 98 fL (80-95); MPV 8.6 fL (8.0-11.0); Monocytes % 8.9 %; Neutrophils % 52.5 %; Platelet Count 247 10^3/uL (130-400); RBC 4.15 10^6/uL (3.93-5.22); RDW 12.6 % (11.7-14.6); RDW-SD 45.6 fL; WBC 5.93 10^3/uL (4.4-10.8)
[2024-07-17 16:24] LABS: ALT 22 U/L (14-59); AST 17 U/L (15-37); Albumin 3.9 g/dL (3.4-5.0); Alkaline Phosphatase 73 U/L (46-116); Anion Gap 7.7 mmol/L (3-11); BUN 16 mg/dL (7-18); Bilirubin, Total 0.39 mg/dL (0.2-1.0); CO2 29.3 mmol/L (21.0-32.0); CREATININE 0.7 mg/dL (0.55-1.02); Calcium 9.4 mg/dL (8.5-10.1); Chloride 103 mmol/L (98-107); Glucose 88 mg/dL (74-106); Lipase 38 U/L (16-77); Potassium 4.4 mmol/L (3.5-5.1); Sodium 140 mmol/L (136-145); Total Protein 7.2 g/dL (6.4-8.2)
== END 2024-07-17 05:29 | disposition home or self-care (01) ==
LOC: LBO 05:29
PROVIDERS: PCP Nurse Practitioner Family; Visit Provider Nurse Practitioner Family
DX: R10.10 Upper abdominal pain, unspecified (principal); K21.9 Gastro-esophageal reflux disease without esophagitis
CPT/HCPCS: 36415; 80053; 83690; 85025

== ENCOUNTER 2025-01-14 02:19 | Outpatient (CLI) | payer OTHER, SELFPAY ==
[2025-01-14 09:07] LABS: ALT 21 U/L (14-59); AST 15 U/L (15-37); Albumin 3.5 g/dL (3.4-5.0); Alkaline Phosphatase 79 U/L (46-116); Anion Gap 11.2 mmol/L (3-11); BUN 20 mg/dL (7-18); Bilirubin, Total 0.16 mg/dL (0.2-1.0); CO2 27.8 mmol/L (21.0-32.0); CREATININE 0.6 mg/dL (0.55-1.02); Calcium 8.7 mg/dL (8.5-10.1); Calculated LDL 96 mg/dL (<100); Chloride 108 mmol/L (98-107); Cholesterol 220 mg/dL (<200); Estimated GFR 107.26 (mL/min/1.73m2); Glucose 89 mg/dL (74-106); HDL Cholesterol 94 mg/dL (>or=50); Sodium 147 mmol/L (136-145); TSH 0.06 uIU/mL (0.36-3.74); Total Protein 7.2 g/dL (6.4-8.2); Triglyceride 150 mg/dL (<150)
[2025-01-14 09:53] LABS: Hemoglobin A1C 5.4 % (<5.7)
[2025-01-14 18:27] LABS: T3, Total 156 ng/dL (97-169)
== END 2025-01-14 02:20 | disposition home or self-care (01) ==
LOC: LBO 02:19
PROVIDERS: PCP Nurse Practitioner Family; Visit Provider Nurse Practitioner Family
DX: E05.90 Thyrotoxicosis, unspecified without thyrotoxic crisis or storm (principal); I10 Essential (primary) hypertension
CPT/HCPCS: 36415; 80053; 80061; 83036; 84439; 84443; 84480

== ENCOUNTER 2025-05-06 03:08 | Outpatient (CLI) | payer OTHER, SELFPAY ==
[2025-05-06 15:14] LABS: FREE T4 0.88 ng/dL (0.76-1.46); TSH 0.01 uIU/mL (0.36-3.74)
[2025-05-06 22:11] LABS: T3,Free 5.6 pg/mL (2.8-5.3)
[2025-05-06 22:24] LABS: T3, Total 146 ng/dL (97-169)
== END 2025-05-06 03:09 | disposition home or self-care (01) ==
LOC: LBO 03:09
PROVIDERS: PCP Nurse Practitioner Family; Visit Provider Internal Medicine
DX: E05.90 Thyrotoxicosis, unspecified without thyrotoxic crisis or storm (principal)
CPT/HCPCS: 36415; 84439; 84443; 84480; 84481

== ENCOUNTER 2025-06-10 06:07 | Day surgery (SDC) | payer OTHER, SELFPAY ==
--- NOTE | 2025-06-09 18:34 | W.PREOPHP ---
Assessment and Plan Assessment and plan (1) Encounter for screening colonoscopy: Status: Acute Assessment and plan: We reviewed the plan for an EGD and colonoscopy. Geni had the oppurtunity to ask any new questions. We can proceed with colonoscopy as planned. History of Present Illness History of Present Illness Chief Complaint: GERD an screening colonscopy Narrative: Geni is 54 years old, and she is referred for her screening colonoscopy and EGD. By way of some history, she has had longstanding gastroesophageal reflux disease, with refractory symptoms despite maximal proton pump inhibitor therapy. She has undergone EGD in the past, and the biopsies of the duodenum showed slightly increased intraepithelial lymphocytes, but otherwise was negative. Clinical features of Guidry's esophagus were not described in the EGD report. She also underwent a colonoscopy, and was found of a sessile serrated adenoma. In the interim, she has been in her usual state of health. Aside from the reflux symptoms, she feels well. She has had no other significant changes with regards to her colon or rectal history. She does describe a family history of esophageal cancer. There have been no major interval changes regarding the history since her last office encounter. 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 (Chronic) Noted on right breast biopsy at [facility] 12/11/18 Hyperlipidemia (Chronic) Major depressive disorder, recurrent (Chronic) Alcohol use disorder (Chronic) GERD with esophagitis (Chronic) Vasomotor symptoms due to menopause (Chronic) Cigarette smoker (Chronic) Carpal tunnel syndrome, bilateral (Chronic) Allergic rhinitis (Chronic) 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) Obesity (Chronic) Medical History Dysfunctional uterine bleeding Generalized anxiety disorder Surgical History S/P colonoscopy (04/11/20) History of esophagogastroduodenoscopy (EGD) (04/11/20) 11/22/17, 04/11/20 Family History Mother Hyperlipidemia Type 2 diabetes mellitus Heart disease Dementia Father , at 66 of OR Depression Stroke Myocardial infarction Type 2 diabetes mellitus Hypertension Heart disease Sister Type 2 diabetes mellitus Hypertension Hyperlipidemia Brother Hypertension Depression Brother Depression Brother Depression Brother Hypertension Son Depression Daughter Depression Daughter , at 27 suspected overdose Depression Substance abuse Maternal Grandfather Hypertension Emphysema lung Maternal Grandmother Vaginal cancer Type 2 diabetes mellitus Paternal Grandfather Heart disease Paternal Grandmother Type 2 diabetes mellitus Heart disease Social History Smoking/Tobacco Use Status: Current every day Tobacco Type: cigarettes Smoking packs per day: 1 Smoking cigarettes per day: 20.0 Years smoked: 42 Smoking pack-years: 42.00 Tobacco: How many years used: 40 Quit status: considering quitting Second Hand Exposure: Yes Smoking risk assessment performed?: Yes Alcohol Intake: current Alcohol Intake frequency: 3 or more drinks per day Alcohol type: wine Drug use: Never Substance use type: does not use Details: alcohol: t-2, few drinks Caregiver/Support person: No Household members: spouse and children Housing: house Communication Needs: None Do you need help understanding health information?: Never current occupation: [employer] Pets and animals: Yes Pets and animals: cat(s) Sexually active: Yes Do you think of yourself as: straight/heterosexual Current gender identity: female What is your relationship status?: How often do you talk on the phone with friends or family?: three or more times per week How often do you get together with friends or relatives?: once per week How often do you attend sabianism or alevism services?: 1-3 times per year Do you belong to any clubs or organized social groups?: no Panel score (0-1 are the most socially isolated patients): 2 What type of physical activity do you participate in: walking Duration: 45-60 minutes/day Frequency: 3-4 times per week Freya/Mormon: Hindu Seatbelt use: always Helmet use: No Drive intox 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: No Do you feel safe at home: Yes Do you feel safe in your relationship?: Yes Female Reproductive History Menstrual control method: other (Vasectomy) History History 3 Para 3 Hx # Term Pregnancies Multiple births Hx # Pregnancies Ectopic pregnancies AB induced Hx Number of Living Children 3 AB spontaneous Meds Allergies and Home Medications Allergies Allergy/AdvReac Type Severity Reaction Status Date / Time bupropion AdvReac Unknown Psychosis Verified 06/10/25 06:27 Home Medications ?Medication ?Instructions ?Recorded ?Confirmed ?Type doxycycline hyclate 50 mg capsule 50 mg PO DAILY 02/21/23 06/10/25 History antiarthritic combination no.2 900 900 mg PO DAILY 01/27/24 06/10/25 History mg tablet (glucosamine-chondroitin) black cohosh 540 mg capsule 20 mg PO DAILY 01/27/24 06/10/25 History cholecalciferol (vitamin D3) 50 50 mcg PO DAILY 01/27/24 06/10/25 History mcg (2,000 unit) capsule evening primrose oil 1,300 mg 1,300 mg PO DAILY 01/27/24 06/10/25 History capsule gyxfyldimjpa-Xg-xabk-minerals 1 tab PO DAILY 01/27/24 06/10/25 History turmeric root extract 1,053 mg 1,076 mg PO DAILY 01/27/24 06/10/25 History tablet albuterol sulfate 90 mcg/actuation 1 puff inhalation Q6H PRN 11/29/24 06/10/25 Rx aerosol inhaler shortness of breath or wheezing #18 grams ondansetron HCl 8 mg tablet 8 mg PO Q8H PRN nausea and 12/18/24 06/10/25 Rx vomiting #2 tabs hydrochlorothiazide 25 mg tablet 25 mg PO DAILY #90 tabs 01/25/25 06/10/25 Rx losartan 100 mg tablet 100 mg PO DAILY #90 tabs 01/25/25 06/10/25 Rx esomeprazole magnesium 40 mg 40 mg PO DAILY #90 caps 01/28/25 06/10/25 Rx capsule,delayed release sucralfate 1 gram tablet 1 g PO QACHS PRN abdominal pain 01/28/25 06/10/25 Rx #90 tabs Gut Alive Probiotics See Rx Instructions .Route DAILY 01/30/25 06/10/25 History methimazole 5 mg tablet 5 mg PO DAILY 01/30/25 06/10/25 History estradiol 0.01% (0.1 mg/gram) 0.5 g vaginal .Twice a week #42.5 02/06/25 06/10/25 Rx vaginal cream grams bimatoprost 0.01 % eye drops 1 drp ophthalmic (eye) DIRECTED 02/08/25 06/10/25 History (Lumigan) To reduce high eye pressure potassium chloride 10 mEq 10 meq PO DAILY #90 tabs 03/13/25 06/10/25 Rx tablet,extended release(part/cryst) nicotine 21 mg/24 hr daily 1 patch transdermal DAILY #42 ea 03/19/25 06/10/25 Rx transdermal patch escitalopram oxalate 20 mg tablet mg 06/10/25 History Exam Const General: cooperative, healthy appearing and not in acute distress Neck Neck: normal visual inspection, no lymphadenopathy and supple Resp Effort & Inspection: normal respiratory effort Auscultation: clear to auscultation bilaterally Cardio Jugular venous pressure: no JVD Rate: regular rate Rhythm: regular rhythm Heart Sounds: S1 normal and S2 normal GI Inspection: normal to inspection Palpation: soft, no guarding, no hernias and nontender Percussion: normal to percussion Auscultation: normal bowel sounds Neuro General: patient alert, patient awake and patient oriented x3 Psych Appearance: grossly normal
--- NOTE | 2025-06-09 18:35 | W.PM.DSUDISC ---
Date of service: 06/10/25 Discharge Plan Disposition Patient Disposition: Home Condition: Good Discharge Details Reason For Visit: EGD and colonoscopy Attending Provider: Norberto Brennan Primary Care Provider: Helen Lr Home Meds and New Rx's Prescriptions: Continued doxycycline hyclate 50 mg capsule 50 mg PO DAILY cholecalciferol (vitamin D3) 50 mcg (2,000 unit) capsule 50 mcg PO DAILY glucosamine-chondroitin 900 mg tablet 900 mg PO DAILY cokobahsbrrf-Vo-tiok-minerals Tablet 1 tab PO DAILY evening primrose oil 1,300 mg capsule 1,300 mg PO DAILY black cohosh 540 mg capsule 20 mg PO DAILY turmeric root extract 1,053 mg tablet 1,076 mg PO DAILY esomeprazole magnesium 40 mg capsule,delayed release(DR/EC) 40 mg PO DAILY Qty: 90 3RF Patient Comments: TAKE 1 CAPSULE BY MOUTH DAILY sucralfate 1 gram tablet 1 g PO QACHS PRN (Reason: abdominal pain) Qty: 90 0RF Gut Alive Probiotics See Rx Instructions .ROUTE DAILY Rx Instructions: 2 pills daily methimazole 5 mg tablet 5 mg PO DAILY ondansetron HCl 8 mg tablet 8 mg PO Q8H PRN (Reason: nausea and vomiting) Qty: 2 0RF Rx Instructions: Take 1 tablet by mouth every 8 hours if needed for nausea or vomiting during bowel prep albuterol sulfate 90 mcg/actuation HFA aerosol inhaler 1 puff Inhalation Q6H PRN (Reason: shortness of breath or wheezing) Qty: 18 0RF losartan 100 mg tablet 100 mg PO DAILY Qty: 90 3RF hydrochlorothiazide 25 mg tablet 25 mg PO DAILY Qty: 90 3RF estradiol 0.01 % (0.1 mg/gram) cream 0.5 g vaginal .Twice a week Qty: 42.5 4RF potassium chloride 10 mEq tablet,ER particles/crystals 10 meq PO DAILY Qty: 90 3RF nicotine 21 mg/24 hr patch 24 hour 1 patch transdermal DAILY Qty: 42 0RF Rx Instructions: Apply 1 patch daily for 6 weeks Lumigan 0.01 % drops 1 drp ophthalmic (eye) DIRECTED No Action escitalopram oxalate 20 mg tablet Patient Comments: TAKE ONE-HALF TABLET BY MOUTH EVERY DAY FOR 30 DAYS; THEN TAKE ONE TABLET BY MOUTH ONCE DAILY Discharge Instructions Instructions: Colon polyps Additional Instructions: 1. If tolerated, consume a soft, low fiber diet for 1-2 days. [address] Do not drive, drink alcohol, operate machinery, make critical decisions, or do activities that require coordination or balance for 24 hours. 3. Because air was put into your colon during the procedure, expelling air from your rectum (passing gas or farting) is normal. 4. You may not have a bowel movement for 1-3 days because of the colonoscopy prep. This is normal. 5. You may experience a sore throat for 24 to 48 hours. You may use throat lozenges or gargle with warm salt water to relieve the discomfort. 6. Because air was put into your stomach during the procedure, you may experience some belching. 7. Go directly to the emergency room if you notice any of the following: Develop chills (warm to touch), or if you have a thermometer and your temperature is above 101 Difficulty breathing or difficultly swallowing Persistent vomiting Severe abdominal pain, other than gas cramps Severe chest pain Black, tarry stools Any bleeding ? exceeding one tablespoon 8. Call your physician if the site where your intravenous was started becomes red, swollen, painful, and warm to touch. 9. Your physician has reviewed your pre-procedure medications. Please continue to take those medications as previously ordered. You will be given specific information/education regarding any changes to your medications before leaving. Stand Alone Forms: Anesthesia Discharge InstCrow Palacios (DSU) Activity:: Activity as Tolerated Diet:: As Tolerated Discharge Orders Discharge Orders: Discharge Order (Routine); Ordered 06/09/25 Ordered By: Norberto Brennan DS: Diagnosis Discharge Diagnosis (1) Encounter for screening colonoscopy: Status: Acute Asessment and Plan: Follow-up on polypectomy results
--- NOTE | 2025-06-09 18:37 | W.PM.ENDDOP ---
Date of service: 06/10/25 Time of Service: 08:37 Endoscopy Report DATE OF PROCEDURE: 06/10/25 PRE-OP DIAGNOSIS: GERD and screening colonoscopy POST-OP DIAGNOSIS: other (Normal EGD, colon polyps) PROCEDURE: EGD with biopsies and colonoscopy with polypectomy SURGEON: Norberto Brennan ANESTHESIA TYPE: General:No Airway ESTIMATED BLOOD LOSS: 10 PATHOLOGY: other (Nondirected biopsies of duodenum, gastric antrum, gastric body, GE junction; ascending colon polyp, polyp at 50 cm) COMPLICATIONS: None DISPOSITION: same day INDICATIONS: Geni is a 54 year old woman with a history of GERD and adenomatou polyps who needs her next screening EGD and colonoscopy PREP: Miralax/Dulcolax PROCEDURE START TIME: 07:40 PROCEDURE END TIME: 08:15 COLONOSCOPY RETRACTION TIME: 17 FINDINGS: Normal-appearing EGD, with GE junction at 36 cm; colon polyps PROCEDURE DESCRIPTION: After the initiation of anesthesia, and with the assistance of a bite block, I advanced a standard gastroscope through the mouth past the hypopharynx and into the esophagus.? Under the direct vision of the scope, I advanced down the esophagus towards the stomach. The upper, mid, and lower esophagus were healthy appearing. The Z-line appears regular at the GE junction measuring 36 cm beyond incisors. Given the concern for Guidry's esophagus in the past, nondirected biopsies of the GE junction but clinically this does not seem consistent with Guidry's. Once I entered the stomach, I performed a brief inspection, followed by retroflexion towards the gastric cardia.? This appeared normal.? After that, I gently advanced the scope around the incisura angularis and examined the pylorus.? This also appeared normal.? Next, I advanced the scope through the pylorus into the duodenum.? The mucosa was pink and healthy appearing.? There were no abnormalities.? Based on the increased lymphocytes seen on the previous duodenal biopsies, I did perform some cold forceps biopsies of the duodenum to reassess that. Although I saw no evidence of duodenitis. I then brought the camera back up into the stomach and performed some nondirected biopsies of her gastric antrum and body to rule out Helicobacter pylori. These biopsies were also performed forceps. I then brought the camera along the length of the esophagus 1 last time. Other abnormalities were appreciated. Next, we rolled Geni into the left lateral decubitus position. I began by performing an external anorectal exam.? Perineum and skin were normal, as was the anal verge.? There was no knot evidence of external hemorrhoids.? Next, I performed a digital rectal exam.? I did not appreciate any abnormal findings.? Next, I advanced a colonoscope into the rectal vault.? I performed retroflexion.? This appeared normal.? Using insufflation, I then advanced the colonoscope beyond the rectal folds and into the sigmoid colon before advancing towards the cecum.? The scope was noted to be in the cecum by identification of the ileocecal valve and appendiceal orifice.? I then began withdrawing the colonoscope using repeated irrigation as necessary for full evaluation of the colonic mucosa. In the ascending colon was a 0.75 cm flat polyp. I attempted to encircle this with a snare, but it conformation precluded that. I removed the majority of this in piecemeal with cold forceps. The remaining tissue was fulgurated with cautery. I did tattoo this area for reassessment. Another 0.25 cm flat polyp was found at 50 cm beyond the anus, and this was also removed with cold forceps. Once the scope was withdrawn to the level of the rectum, great care was taken to examine portions of the rectal folds.? Finally, the scope was withdrawn and the patient was brought to the same-day surgery recovery unit as the anesthetic wore off. ?The findings and instructions were shared with the patient prior to discharge. The [place] bowel prep score from right to left was 3, 3, 3.
[2025-06-10 06:24] VITALS: BP 124/82; PULSE 75; RESP 20; TEMP 36.5; O2SAT 96
[2025-06-10] MEDS: Lactated Ringers 1,000 ML 80 ML IV (06:45)
--- NOTE | 2025-06-10 07:01 | W.ANESPRE ---
General Info Date of Service Date Performed: 06/10/25 Height: 5 ft 2.5 in Weight: 103.3 kg Body Mass Index (BMI): 41.0 Surgical Procedure: Operation Date: 06/10/25 07:35 Proposed Procedure Side Surgeon p Colonoscopy/Gastroscopy Norberto Brennan MD Meds Allergies and Home Medications Allergies Allergy/AdvReac Type Severity Reaction Status Date / Time bupropion AdvReac Unknown Psychosis Verified 06/10/25 06:27 Home Medication ?Medication ?Instructions ?Recorded doxycycline hyclate 50 mg capsule 50 mg PO DAILY 02/21/23 antiarthritic combination no.2 900 900 mg PO DAILY 01/27/24 mg tablet (glucosamine-chondroitin) black cohosh 540 mg capsule 20 mg PO DAILY 01/27/24 cholecalciferol (vitamin D3) 50 50 mcg PO DAILY 01/27/24 mcg (2,000 unit) capsule evening primrose oil 1,300 mg 1,300 mg PO DAILY 01/27/24 capsule qidreaqgseoy-Np-gfit-minerals 1 tab PO DAILY 01/27/24 turmeric root extract 1,053 mg 1,076 mg PO DAILY 01/27/24 tablet albuterol sulfate 90 mcg/actuation 1 puff inhalation Q6H PRN 11/29/24 aerosol inhaler shortness of breath or wheezing #18 grams ondansetron HCl 8 mg tablet 8 mg PO Q8H PRN nausea and 12/18/24 vomiting #2 tabs hydrochlorothiazide 25 mg tablet 25 mg PO DAILY #90 tabs 01/25/25 losartan 100 mg tablet 100 mg PO DAILY #90 tabs 01/25/25 esomeprazole magnesium 40 mg 40 mg PO DAILY #90 caps 01/28/25 capsule,delayed release sucralfate 1 gram tablet 1 g PO QACHS PRN abdominal pain 01/28/25 #90 tabs Gut Alive Probiotics See Rx Instructions .Route DAILY 01/30/25 methimazole 5 mg tablet 5 mg PO DAILY 01/30/25 estradiol 0.01% (0.1 mg/gram) 0.5 g vaginal .Twice a week #42.5 02/06/25 vaginal cream grams bimatoprost 0.01 % eye drops 1 drp ophthalmic (eye) DIRECTED 02/08/25 (Arslan) To reduce high eye pressure potassium chloride 10 mEq 10 meq PO DAILY #90 tabs 03/13/25 tablet,extended release(part/cryst) nicotine 21 mg/24 hr daily 1 patch transdermal DAILY #42 ea 03/19/25 transdermal patch escitalopram oxalate 20 mg tablet mg 06/10/25 Current Visit Medications: Current Medications Generic Name Dose Route Start Last Admin Trade Name Freq PRN Reason Stop Dose Admin Ringer's Solution 1,000 mls @ 80 mls/hr 06/10/25 06:00 06/10/25 06:45 IV 06/10/25 23:59 80 mls/hr INFUSION ALEJANDRO Administration IV Miscellaneous Supplies 1 each 06/10/25 06:00 Iv Access IV 06/10/25 23:59 DIRECTED ALEJANDRO Ondansetron HCl 4 mg 06/09/25 18:38 Ondansetron 4 Mg/2 Ml Vial IVP 07/09/25 18:37 Q4H PRN PRN Nausea / Vomiting Sodium Chloride 0 ml 06/10/25 06:00 Normal Saline Flush 10 Ml Syr IV 06/10/25 23:59 PRN PRN Sodium Chloride 0 ml 06/10/25 06:00 Normal Saline 10 Ml Vial IJ 06/10/25 23:59 DIRECTED PRN Sterile Water 0 ml 06/10/25 06:00 Water,Injection,Sterile 10 Ml Vial IJ 06/10/25 23:59 DIRECTED PRN PFSH Active Problems Active Problems: Problem Status Onset Code Encounter for screening colonoscopy Acute Z12.11 Essential hypertension Chronic I10 Subclinical hyperthyroidism Chronic E05.90 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 Hyperlipidemia Chronic E78.5 Major depressive disorder, recurrent Chronic F33.9 Alcohol use disorder Chronic F10.90 GERD with esophagitis Chronic K21.0 Vasomotor symptoms due to menopause Chronic N95.1 Cigarette smoker Chronic F17.210 Carpal tunnel syndrome, bilateral Chronic G56.03 Allergic rhinitis Chronic J30.9 Varicose veins of bilateral lower extremities with pain Chronic I83.813 Obesity Chronic E66.9 Medical History Medical History Dysfunctional uterine bleeding Generalized anxiety disorder Surgical History Surgical History S/P colonoscopy (04/11/20) History of esophagogastroduodenoscopy (EGD) (04/11/20) 11/22/17, 04/11/20 Tobacco Smoking/Tobacco Use Status: Current every day Tobacco Type: cigarettes Smoking packs per day: 1 Smoking cigarettes per day: 10 Years smoked: 42 Smoking pack-years: 42.00 Passive smoking exposure: Yes Second hand exposure: Yes Alcohol Alcohol Intake: current Alcohol intake frequency: 3 or more drinks per day Alcohol type: wine Substance Use Substance use: Never Substance use type: does not use Details: alcohol: t-2, few drinks Prental History History 3 Para 3 Hx # Term Pregnancies Multiple births Hx # Pregnancies Ectopic pregnancies AB induced Hx Number of Living Children 3 AB spontaneous Vital Signs and Lab Results Vital Signs Most Recent Vital Signs in EMR: Most Recent Vital Signs Temp Pulse Resp BP Pulse Ox 36.5 C 75 20 124/82 96 06/10/25 06:24 06/10/25 06:24 06/10/25 06:24 06/10/25 06:24 06/10/25 06:24 Imaging and Studies Imaging and Studies Study information below may be from another EMR and interpreted by another provider. Please see original notes in EMR for more complete details. EKG Summary: 09/29/20: Exam: Resting ECG Patient Location: E HR:101 bpm ECG Measurements Heart Rate 101 AXIS WA 124 P 68 QRSd 83 QRS 39 QT 347 T59 QTc 449 Conclusion Sinus tachycardia...rate> 99 Probable left atrial enlargement...P >50mS, <-0.10mV V1 Physician: Rate 101, intervals normal, sinus tachycardia, no significant ST elevations or depression, and no evidence of STEMI, or dysrhythmia. I have reviewed and I agree with the emergency room physician???s ECG interpretation. Stress Test Summary: 11/09/17: Stress results: The target heart rate was achieved. The heart rate response to stress is normal. There is a normal resting blood pressure with an appropriate response to stress. The rate-pressure product for the peak heart rate and blood pressure was 47968hn Hg/min. The patient experienced no chest pain during stress. Exercise capacity is normal for age. Stress ECG: EXCERCISE TESTING ENDED IN 7 MINS, 5 SECS, DUE TO FATIGUE. MAX HR 164, 93% OF TARGET. NORMAL BLOOD PRESSURE RESPONSE. METS: 8.69 ECTOPY: NO ECTOPY NOTED, BUT HR DID DECREASE SLIGHTLY IN STAGE 2, APPROX 5BPM. ANGINA: NO REPORTED CHEST PAIN OR PRESSURE. ISCHEMIA: NO ISCHEMIC CHANGES NOTED. FUNCTIONAL CAPACITY: AVERAGE CAPACITY. The stress ECG is negative. Guerra treadmill score: 7. This score predicts a low risk of cardiac events. Anesthesia Assessment and Plan Anesthesia History Personal History: No History of Anesthesia Complications Family History: No Family History of Anesthesia Complications Exercise Tolerance Exercise Tolerance: Metabolic Equivalents>4 Cardiac & Pulmonary Exam Cardiac Exam: Normal S1/S2 Heart Sounds Pulmonary Exam: Wheezing Present (Plan pre-procedure albuterol) Implantable Cardiac Device Does patient have a Pacemaker or an ICD?: No Airway Exam Known Difficult Airway: No Mallampati Class: 2 Mouth Opening: Normal (> 3cm) Thyromental Distance: Greater than 3 cm Neck Range of Motion: Full ROM Neck Circumference: Normal Teeth Condition: Normal Dentition ASA Classification ASA Score: ASA 3 Emergency Case?: No NPO Status NPO Status: NPO Clears >2 hours, Solids >8 hours Status Status: Not Per Patient Anesthesia Plan Resuscitation Status: Full Code Anesthesia Technique: General Anesthesia Airway Planned: Natural Airway Monitors Used: Standard Monitors
[2025-06-10 07:17] VITALS: BMI 41.0
--- NOTE | 2025-06-10 07:42 | BOWEL_PTH ---
PATIENT: Geni Cage LOC: [facility] U#:[id number] AGE/SX: 54/F ROOM: RE06/10/[address]: Norberto Brennan MD : [id number] BED: DIS: 06/10/2025 SPEC #: [id number] RECD: 06/10/25 12:56 STATUS: TAMIA RE #: [id number] SHARMIN: 06/10/25 07:[address]: Norberto Brennan DEPT: Surgical Specimen RECD BY: Dali Arias ENTERED: 06/10/25 12:57 SP TYPE: Bowel OTHR DR: Helen Lr, SHOVE UP Tissues: 1 - BIOPSY BOWEL 2 - STOMACH BIOPSY 3 - STOMACH BIOPSY 4 - ESOPHAGUS BIOPSY 5 - BIOPSY BOWEL 6 - BIOPSY BOWEL Procedures: GROSS AND MICRO LEVEL 4 Comments: [id number]
[2025-06-10] MEDS: Endoscopic Tattoo 5 ML SYR IJ (08:00)
[2025-06-10 08:22] VITALS: BP 131/84; PULSE 71; RESP 18; TEMP 36; O2SAT 97
--- NOTE | 2025-06-10 08:29 | W.ANESPOSTOP ---
Postoperative Evaluation Date, Time and Location Date Performed: 06/10/25 Time Performed: : Patient Location: Day Surgery Unit Vital Signs Most Recent Imported Vital Signs: Most Recent Vital Signs Temp Pulse Resp BP Pulse Ox 36.0 C L 71 18 131/84 97 06/10/25 08:22 06/10/25 08:22 06/10/25 08:22 06/10/25 08:22 06/10/25 08:22 Pain Score Most Recent Pain Score: Most Recent Pain Score Pain Level 0 06/10/25 08:22 Assessment Mental Status: Awake (Alert & Oriented to Patient Baseline) Airway and Respiratory Function: Patent airway with normal (patient baseline) respiratory exam Cardiovascular Function: Hemodynamically Stable Hydration Status: Adequately Hydrated Nausea & Vomiting: No Nausea or Vomiting Pain: Pt. Denies Any Pain Peripheral Nerve Block: Patient did not receive a nerve block
[2025-06-10 08:53] VITALS: BP 121/77; PULSE 62; RESP 18; TEMP 36.1; O2SAT 99
== END 2025-06-10 09:14 | disposition home or self-care (01) ==
LOC: SUR 06:07
PROVIDERS: PCP Nurse Practitioner Family; Visit Provider Surgery
PROC: (CPT 45380; principal; 2025-06-10 07:30)
DX: Z12.11 Encounter for screening for malignant neoplasm of colon (principal); K21.9 Gastro-esophageal reflux disease without esophagitis; D12.2 Benign neoplasm of ascending colon; D12.5 Benign neoplasm of sigmoid colon; K22.89 Other specified disease of esophagus
CPT/HCPCS: 45380; 45385; 43239; 88305; J2003; J2704

== ENCOUNTER 2025-10-15 01:02 | Outpatient (CLI) | payer OTHER, SELFPAY ==
[2025-10-15 09:48] LABS: Abs Immature Grans 0.01 10^3/uL (0.0-0.06); HCT 37.2 % (36.0-46.0); HGB 12.6 g/dL (11.2-15.7); Immature Grans % 0.2 %; MCH 33.1 pg (27.0-33.0); MCHC 33.9 % (32.0-36.0); MCV 98 fL (80-95); MPV 8.7 fL (8.0-11.0); Platelet Count 254 10^3/uL (130-400); RBC 3.81 10^6/uL (3.93-5.22); RDW 12.6 % (11.7-14.6); RDW-SD 45.0 fL; WBC 4.36 10^3/uL (4.4-10.8)
[2025-10-15 09:49] LABS: Glucose Negative (Negative)
[2025-10-15 09:56] LABS: RBC 0-2 HPF (0-2); WBC 0-2 HPF (0-5)
[2025-10-15 09:57] LABS: C & S Indicated? No
[2025-10-15 10:13] LABS: ALT 16 U/L (10-49); AST 19 U/L (<34); Albumin 4.3 g/dL (3.2-5.0); Alkaline Phosphatase 73 U/L (46-116); Anion Gap 6.8 mmol/L (3-11); BUN 14 mg/dL (9-23); Bilirubin, Total 0.30 mg/dL (0.2-1.2); CO2 29.2 mmol/L (20.0-31.0); Calcium 8.8 mg/dL (8.3-10.6); Chloride 106 mmol/L (98-107); Glucose 89 mg/dL (74-106); Potassium 4.1 mmol/L (3.5-5.1); Sodium 142 mmol/L (136-145); Total Protein 6.9 g/dL (5.7-8.2)
[2025-10-15 10:14] LABS: TSH (W/Ref FT4) 0.31 uIU/mL (0.55-4.78)
[2025-10-15 11:41] LABS: Lab Add On Test DONE
[2025-10-15 12:03] LABS: Vitamin B12 277 pg/mL (211-911)
[2025-10-15 12:04] LABS: Ferritin 48 ng/mL (7-271); Folate 8.4 ng/mL (>5.38)
[2025-10-15 15:31] LABS: Hemoglobin A1C 5.2 % (<5.7)
[2025-10-15 21:18] LABS: T3,Free 4.4 pg/mL (2.8-5.3)
[2025-10-15 21:32] LABS: T3, Total 117 ng/dL (82-158)
[2025-10-15 22:29] LABS: HBs Antibody, Quant <3.1 mIU/mL (See Note); Hepatitis B Surface Antigen Negative (Negative)
== END 2025-10-15 01:03 | disposition home or self-care (01) ==
LOC: LBO 01:02
PROVIDERS: PCP Nurse Practitioner Family; Visit Provider Nurse Practitioner Family
DX: E05.90 Thyrotoxicosis, unspecified without thyrotoxic crisis or storm (principal); F10.90 Alcohol use, unspecified, uncomplicated; R53.83 Other fatigue; Z11.59 Encounter for screening for other viral diseases; D75.89 Other specified diseases of blood and blood-forming organs
CPT/HCPCS: 36415; 80053; 86704; 86706; 87340; 81003; 81015; 82607; 82728; 82746; 83036; 84439; 84443; 84480; 84481; 85025